=== PATIENT | male | born 1960 | race Caucasian/White ===

== ENCOUNTER 2018-08-20 11:57 | Inpatient (IN) | payer OTHER ==
[~2018-08-20] VITALS: Ht 175.3 cm; Wt 50.9 kg
[~2018-08-20 11:57] MED LIST: ACET325 PO; ACYC800 PO; ALBU.083IS IH; ALBU3IS INH; ALBU8HFA2 INH; ALBU90I INH; ALBU90OI INH; ALBU90OI6 INH; AMOCLA875 PO; ASPI325 PO; ASPI81CH PO; ASPI81EC; AZIT250 PO; CULTURELLE1 EACH PO; DOCU100 PO; DOXY100 PO; ERYT.5TO OD; FAMO20 PO; FLUSAL1005 IH; FLUSAL1005 INH; FLUSAL2505 INH; FLUSAL5005 INH; FLUT1DIS8 INH; GUAI600T33 PO; HYDACE5 PO; IPRAOI INH; LOPE2C PO; MONT10T PO; NICO14TP TOP; PENVK500 PO; PRED10 PO; PRED20 PO; TAMS.4ER PO; TAZICEF2 GM IV; TIOT18 INH; VANCO 1 GR1 GM/250 M IV
[2018-08-20 13:08] LABS: BASOPHILS ABSOLUTE AUTO 0.13 K/mm3 (0.00-0.23); BASOPHILS PERCENT AUTO 1 % (0-2); EOSINOPHILS ABSOLUTE AUTO 0.48 K/mm3 (0.00-0.68); EOSINOPHILS PERCENT AUTO 5 % (0-6); Hematocrit 46.1 % (37.0-53.0); Hemoglobin 14.8 g/dL (13.5-17.5); IMMATURE GRAN ABSOLUTE AUTO 0.03 K/mm3 (0.00-0.10); IMMATURE GRAN PERCENT AUTO 0 % (0-1); LYMPHOCYTES ABSOLUTE AUTO 1.43 K/mm3 (0.84-5.20); LYMPHOCYTES PERCENT AUTO 14 % (21-46); MONOCYTES ABSOLUTE AUTO 0.93 K/mm3 (0.16-1.47); MONOCYTES PERCENT AUTO 9 % (4-13); Mean Corpuscular HGB Conc 32.1 g/dL (31.5-36.5); Mean Corpuscular Volume 93 fL (80-100); NEUTROPHILS ABSOLUTE AUTO 7.56 K/mm3 (1.96-9.15); NEUTROPHILS PERCENT AUTO 72 % (41-73); Platelet Count 367 K/mm3 (150-400); RDW Coefficient Variation 13.8 % (11.7-14.2); RDW Standard Deviation 47.9 fL (35.1-46.3); Red Blood Cell Count 4.94 M/mm3 (4.30-5.90); White Blood Cell Count 10.56 K/mm3 (4.00-11.30)
[2018-08-20 13:30] LABS: Alanine Aminotransfer (ALT/SGP 30 U/L (12-78); Albumin, Blood 3.7 g/dL (3.4-5.0); Albumin/Globulin Ratio 1.1 (0.8-1.8); Alk Phos 65 U/L (50-136); Anion Gap 7 mmol/L (6-16); Aspartate Aminotrans (AST/SGOT 30 U/L (12-37); Bilirubin, Total 0.3 mg/dL (0.1-1.0); Blood Urea Nitrogen 13 mg/dL (8-24); Bun/Creatinine Ratio 13.6 (12.0-20.0); CO2, Blood 28 mmol/L (21-32); Calcium, Blood 9.4 mg/dL (8.5-10.1); Chloride, Blood 102 mmol/L (98-108); Creatinine, Blood 0.96 mg/dL (0.60-1.20); Globulin, Blood 3.3 g/dL (2.2-4.0); Glomerular Filtration Rate >60 (60-); Glucose, Blood 90 mg/dL (70-99); Potassium, Blood 4.7 mmol/L (3.5-5.5); Sodium, Blood 137 mmol/L (136-145)
[2018-08-20] MEDS ORDERED: BUDE6HFA INH (15:24)
[2018-08-20] MEDS ORDERED: TAMS.4ER PO (15:24)
[2018-08-20] MEDS ORDERED: MONT10T PO (15:25)
[2018-08-20] MEDS ORDERED: ALBU90OI6 INH ×2 (15:25)
[2018-08-20] MEDS ORDERED: ALBU2.5V5 NEB (16:31)
[2018-08-20 17:25] LABS: PCO2 Arterial 61.5 mmHg (35-45); PO2 Arterial 69.9 mmHg (80-100); pH Blood Arterial 7.33 (7.35-7.45)
[2018-08-21 00:38] LABS: Adenovirus Not Detected (NOT DETECT); Bordetella pertussis Not Detected (NOT DETECT); Chlamydophila pneumoniae Not Detected (NOT DETECT); Coronavirus 229E Not Detected (NOT DETECT); Coronavirus HKU1 Not Detected (NOT DETECT); Coronavirus NL63 Not Detected (NOT DETECT); Coronavirus OC43 Not Detected (NOT DETECT); Human Metapneumovirus Not Detected (NOT DETECT); Human Rhinovirus/Enterovirus Not Detected (NOT DETECT); Influenza A Not Detected (NOT DETECT); Influenza A/2009-H1 Not Detected (NOT DETECT); Influenza A/H1 Not Detected (NOT DETECT); Influenza A/H3 Not Detected (NOT DETECT); Influenza B Not Detected (NOT DETECT); Mycoplasma pneumoniae Not Detected (NOT DETECT); Parainfluenza Virus 1 Not Detected (NOT DETECT); Parainfluenza Virus 2 Not Detected (NOT DETECT); Parainfluenza Virus 3 Not Detected (NOT DETECT); Parainfluenza Virus 4 Not Detected (NOT DETECT); Respiratory Syncytial Virus Not Detected (NOT DETECT)
--- NOTE | 2018-08-21 06:03 | NUR ---
END OF SHIFT SUMMARY ASSUMED CARE OF PT FROM ED NURSE REJI. PT TO ROOM VIA STRETCHER, AMBULATES TO BED EASILY WITH NO ASSIST. PT ON 2L NC, SATS >92%. ALERT AND SPEAKING APPROPRIATELY WITH STAFF. BIPAP AT BEDSIDE. PT HAS USED INTERMITTENTLY, DOES NOT TOLERATE IT WELL AND NEEDS CONSTANT BREAKS FROM IT. PT MADE DNR PER REQUEST / DR ORDER. PALLIATIVE CARE CONSULT CALLED IN. PT HAD INSTANCE OF ANXIETY AND WAS MEDICATED PER EMAR BY NITZA HOLLIS. PT HAS BEEN RESTING OFF AND ON SINCE ADMISSION. PT VERY COOPERATIVE WITH STAFF. HAS COMPLAINED OF SOME CRAMPING IN FEET, STATES IS NORMAL OCCURENCE FOR HIM. WILL CONTINUE TO MONIOTOR PT UNTIL SHIFT CHANGE. CALL LIOGHT WITHIN REACH OF PT.
[2018-08-21 06:05] LABS: BASOPHILS ABSOLUTE AUTO 0.03 K/mm3 (0.00-0.23); BASOPHILS PERCENT AUTO 0 % (0-2); EOSINOPHILS PERCENT AUTO 0 % (0-6); Hematocrit 42.1 % (37.0-53.0); Hemoglobin 13.8 g/dL (13.5-17.5); IMMATURE GRAN ABSOLUTE AUTO 0.03 K/mm3 (0.00-0.10); IMMATURE GRAN PERCENT AUTO 0 % (0-1); LYMPHOCYTES ABSOLUTE AUTO 0.85 K/mm3 (0.84-5.20); LYMPHOCYTES PERCENT AUTO 10 % (21-46); MONOCYTES ABSOLUTE AUTO 0.14 K/mm3 (0.16-1.47); MONOCYTES PERCENT AUTO 2 % (4-13); Mean Corpuscular HGB 30.1 pg (26.0-34.0); Mean Corpuscular HGB Conc 32.8 g/dL (31.5-36.5); Mean Corpuscular Volume 92 fL (80-100); Mean Platelet Volume 9.5 fL (9.1-12.4); NEUTROPHILS PERCENT AUTO 88 % (41-73); Platelet Count 387 K/mm3 (150-400); RDW Coefficient Variation 13.9 % (11.7-14.2); RDW Standard Deviation 47.3 fL (35.1-46.3); Red Blood Cell Count 4.58 M/mm3 (4.30-5.90); White Blood Cell Count 8.75 K/mm3 (4.00-11.30)
[2018-08-21 06:20] LABS: Magnesium, Blood 2.3 mg/dL (1.6-2.4)
[2018-08-21 06:21] LABS: Anion Gap 5 mmol/L (6-16); Blood Urea Nitrogen 24 mg/dL (8-24); Bun/Creatinine Ratio 25.5 (12.0-20.0); CO2, Blood 32 mmol/L (21-32); Calcium, Blood 9.3 mg/dL (8.5-10.1); Chloride, Blood 100 mmol/L (98-108); Creatinine, Blood 0.94 mg/dL (0.60-1.20); Glomerular Filtration Rate >60 (60-); Glucose, Blood 128 mg/dL (70-99); Potassium, Blood 4.8 mmol/L (3.5-5.5); Sodium, Blood 137 mmol/L (136-145)
--- NOTE | 2018-08-21 09:35 | NUR ---
RECEIVED REPORT AND ASSUMED CARE OF PATIENT. HE IS VERY PLEASANT GENTLEMEN AND IS SITTING UP IN BED. PT IS HAVING LABORED BREATHING, AND HAS DYSPNEA WITH EXERTION, EVEN SPEAKING. CURRENTLY ON 2 LPM NC AND O2 SAT AT 94%. WILL CONTINUE TO ASSESS AND FOLLOW ORDERS. BED LOW AND LOCKED, HOB ELEVATED, CALL LIGHT WITHIN EASY REACH.
--- NOTE | 2018-08-21 11:09 | NUR ---
Spiritual care visit conducted. Patient is lying in bed and alert. Patient is kind and openly shares about how aware he is of the reality of his medical condition and how appreciative he is of his family, friends and ricky that give him meaning in the days he has left. I listened empathically, normalized his experience, explored his belief system, provided emotional support and prayer. Patient responded well and stated after the prayer and blessing that he already has all those blessings. Patient thanked me for the visit and said this group underwriter is welcome to come back anytime I would like.
--- NOTE | 2018-08-21 19:33 | NUR ---
PT HAD A GOOD DAY, HE HAS STAYED ON 2LPM VIA NC THROUGHOUT THE SHIFT, AFFECT IS VERY PLEASANT AND PT STATES THAT HE FEELS LIKE HE IS STARTING TO GET A LITTLE BETTER, BUT DOES HAVE EXPIRATORY WHEEZES THROUGHOUT AND HAS DYSPNEA WITH EXERTION, EVEN SPEAKING WILL BRING ON SOB. DR. SCHWARTZ IN TO SEE PATIENT AND SPENT TIME ASSESSING PT AND PT REPORTS, "I REALLY LIKE HIM, HE WAS VERY HELPFUL." PT ALSO STATES THAT "I REALLY WANT TO TRY THAT REHAB THING AGAIN." WILL PASS ON INFORMATION TO NOC RN.
--- NOTE | 2018-08-22 06:17 | NUR ---
SHIFT SUMMARY: PATIENT COMPLIANT WITH BIPAP MAJORITY OF SHIFT, INTERMITTENT BREAKS WITH NC, SOB WITH AVTIVITY. VSS, 1 BM THIS SHIFT, NO OTHER ISSUES NOTED, CALL LIGHT WITHIN REACH, BED LOW AND LOCKED.
--- NOTE | 2018-08-22 17:27 | NUR ---
PATIENT A/OX4, UP INDEPENDENTLY IN ROOM. VSS THIS SHIFT. NSR ON TELE, PULSE IN THE 90'S. LUNGS DIMINSHED THROUGHOUT. 2LO2 TO MAINTAIN SATS, BIPAP AT NOC AND PRN. 20G IV TO R AC WNL AND SL BETWEEN ABX. DENIES ANY PAIN. NO ACUTE CHANGES THIS SHIFT. PATIENT CALM AND COOPERATIVE WITH CARE AND CALLS APPROPRIATELY FOR ASSISTANCE.
--- NOTE | 2018-08-23 02:47 | NUR ---
SHIFT SUMMARY: PATIENT MAINTAINS SOB WITH ANY ACTIVITY, LABORS TO BREATH FOR AT LEAST 5-10 MINUTES AFTER A TRIP TO THE BATHROOM. PATIENT VERY COMPLIANT WITH HIS TREATMENT PLAN, VSS, CALL LIGHT WITHIN REACH, BED LOW AND LOCKED AND MONITORING PATIENT VERY CAREFULLY.
[2018-08-23 04:33] LABS: BASOPHILS ABSOLUTE AUTO 0.01 K/mm3 (0.00-0.23); BASOPHILS PERCENT AUTO 0 % (0-2); EOSINOPHILS PERCENT AUTO 0 % (0-6); Hematocrit 41.1 % (37.0-53.0); Hemoglobin 13.4 g/dL (13.5-17.5); IMMATURE GRAN ABSOLUTE AUTO 0.06 K/mm3 (0.00-0.10); IMMATURE GRAN PERCENT AUTO 0 % (0-1); LYMPHOCYTES ABSOLUTE AUTO 0.64 K/mm3 (0.84-5.20); LYMPHOCYTES PERCENT AUTO 4 % (21-46); MONOCYTES ABSOLUTE AUTO 0.34 K/mm3 (0.16-1.47); MONOCYTES PERCENT AUTO 2 % (4-13); Mean Corpuscular HGB 29.6 pg (26.0-34.0); Mean Corpuscular HGB Conc 32.6 g/dL (31.5-36.5); Mean Corpuscular Volume 91 fL (80-100); Mean Platelet Volume 9.7 fL (9.1-12.4); NEUTROPHILS ABSOLUTE AUTO 13.34 K/mm3 (1.96-9.15); NEUTROPHILS PERCENT AUTO 93 % (41-73); Platelet Count 369 K/mm3 (150-400); RDW Coefficient Variation 14.5 % (11.7-14.2); RDW Standard Deviation 48.6 fL (35.1-46.3); Red Blood Cell Count 4.52 M/mm3 (4.30-5.90); White Blood Cell Count 14.39 K/mm3 (4.00-11.30)
[2018-08-23 04:57] LABS: Anion Gap 5 mmol/L (6-16); Blood Urea Nitrogen 23 mg/dL (8-24); Bun/Creatinine Ratio 23.4 (12.0-20.0); CO2, Blood 32 mmol/L (21-32); Calcium, Blood 9.2 mg/dL (8.5-10.1); Chloride, Blood 102 mmol/L (98-108); Creatinine, Blood 0.98 mg/dL (0.60-1.20); Glomerular Filtration Rate >60 (60-); Glucose, Blood 120 mg/dL (70-99); Potassium, Blood 4.6 mmol/L (3.5-5.5); Sodium, Blood 139 mmol/L (136-145)
--- NOTE | 2018-08-23 08:00 | NUR ---
pt sitting up in chair doing ok, he is recieving a breathing tx at this time, a/ox3, pleasant and cooperative with care, follows commands well, denies pain at this time, lungs are very dim t/o, resp even and mildly labored at rest, denies productive cough, hrr, tele in place running sr per monitor, see strip, no edema noted, cap refill <3sec, vs stable, afebrile, no iv site at this time, btx4, abd flat soft nontender, voids without diff, skin c/w/d, maew, nicki, call light in reach.
--- NOTE | 2018-08-23 12:23 | NUR ---
PT WAS ON BIPAP WHEN ENTERED ROOM, STATES HE HAVING A HARD TIME BREATHING, BUT WANTS TO TAKE IT OFF AND EAT LUNCH, PLACED HIM ON N/C, PLACED NEW 2OG PIV TO ZAN X1 ATTEMPT WITH GOOD BLOOD RETURN, FLUSHES WELL. PT TOLERATED IT WELL. CALL LIGHT IN REACH.
--- NOTE | 2018-08-23 18:50 | NUR ---
pt sitting up to eat dinner, family in room. has a hard time breathing with any activity. no acute changes this shift. call light in reach.
--- NOTE | 2018-08-24 05:07 | NUR ---
SHIFT SUMMARY: PATIENT SLEPT WELL AFTER ATIVAN, STILL VERY SOB WITH ANY ACTIVIT. ALL OTHER VSS, CALL LIGHT WITHIN REACH, BED LOW AND LOCKED.
[2018-08-24] MEDS ORDERED: ACET325 PO (10:20)
[2018-08-24] MEDS ORDERED: FAMO20 PO (10:21)
[2018-08-24] MEDS ORDERED: GUAI600T33 PO (10:23)
[2018-08-24] MEDS ORDERED: LORA.5 PO (10:24)
[2018-08-24] MEDS ORDERED: PRED10 PO (10:27)
[2018-08-24] MEDS ORDERED: AZIT500 PO (10:28)
[2018-08-24] MEDS ORDERED: ONDA4ODT MM (10:28)
--- NOTE | 2018-08-24 12:48 | NUR ---
pt doing well, sitting on the side of the bed eating lunch. will be going home today, after trillagy is delivered, charge nurse working on discharge orders. vs stable. call light in reach.
--- NOTE | 2018-08-24 18:15 | NUR ---
pt has been discharged to home, went over discharge instructions with him, he has a hard copy for ativan that was given to him. his bipap was approved and will be delivered to his home. iv removed intact. left via wheelchair with all his belongings.
== END 2018-08-24 18:14 | disposition home or self-care (01) | DRG 189 ==
LOC: ER 11:57 → PCU 17:08
PROVIDERS: Family Medicine; Nurse Practitioner Acute Care; Physician Assistant; ADMIT Hospitalist
DX: J96.21 Acute and chronic respiratory failure with hypoxia (principal); R64 Cachexia; Z68.1 Body mass index [BMI] 19.9 or less, adult; J43.9 Emphysema, unspecified; J96.22 Acute and chronic respiratory failure with hypercapnia; Z99.81 Dependence on supplemental oxygen; G47.00 Insomnia, unspecified; N40.0 Benign prostatic hyperplasia without lower urinary tract symptoms; Z87.891 Personal history of nicotine dependence; Z66 Do not resuscitate; R73.9 Hyperglycemia, unspecified; T38.0X5A Adverse effect of glucocorticoids and synthetic analogues, initial encounter; Y92.239 Unspecified place in hospital as the place of occurrence of the external cause
CPT/HCPCS: 36415; 36600; 71046; 80048; 80053; 82803; 83735; 84145; 85025; 87486; 87581; 87633; 87798; 93005; 93010; 94640; 94644; 94660; 94664; 94667; 94760; 94762; 96365; 96366; 96368; 96375; 98960; 99285-25; 99407; J0456; J1650; J2930; J3475; J7050

== ENCOUNTER 2018-09-18 16:14 | Inpatient (IN) | payer OTHER ==
[~2018-09-18] VITALS: Ht 175.3 cm; Wt 52.7 kg
[~2018-09-18 16:14] MED LIST changes: +ALBU2.5V5 NEB; +AZIT500 PO; +BUDE6HFA INH; +LORA.5 PO; +ONDA4ODT MM
[2018-09-18 18:53] LABS: Alanine Aminotransfer (ALT/SGP 33 U/L (12-78); Albumin, Blood 3.1 g/dL (3.4-5.0); Albumin/Globulin Ratio 0.9 (0.8-1.8); Alk Phos 61 U/L (50-136); Anion Gap 3 mmol/L (6-16); Aspartate Aminotrans (AST/SGOT 20 U/L (12-37); Bilirubin, Total 0.5 mg/dL (0.1-1.0); Blood Urea Nitrogen 13 mg/dL (8-24); Bun/Creatinine Ratio 16.1 (12.0-20.0); CO2, Blood 33 mmol/L (21-32); Calcium, Blood 9.1 mg/dL (8.5-10.1); Chloride, Blood 104 mmol/L (98-108); Creatinine, Blood 0.81 mg/dL (0.60-1.20); Globulin, Blood 3.4 g/dL (2.2-4.0); Glomerular Filtration Rate >60 (60-); Glucose, Blood 74 mg/dL (70-99); Potassium, Blood 4.8 mmol/L (3.5-5.5); Sodium, Blood 140 mmol/L (136-145); Total Protein, Blood 6.5 g/dL (6.4-8.2)
[2018-09-18 19:50] LABS: Source, Urine Clean Catch
[2018-09-18 19:54] LABS: Bilirubin, Urine Neg (Neg); Blood, Urine Neg (Neg); Glucose Qualitative, Urine Neg (Neg); Ketones, Urine 2+ (Neg); Leukocyte Esterase, Urine Neg (Neg); Nitrite, Urine Neg (Neg); Protein, Urine Neg (Neg); Urobilinogen, Urine NORM (Normal)
[2018-09-18 20:10] LABS: Appearance, Urine Clear (Clear); Color, Urine Yellow (P-Yellow)
[2018-09-19 02:25] LABS: Adenovirus Not Detected (NOT DETECT); Bordetella pertussis Not Detected (NOT DETECT); Chlamydophila pneumoniae Not Detected (NOT DETECT); Coronavirus 229E Not Detected (NOT DETECT); Coronavirus HKU1 Not Detected (NOT DETECT); Coronavirus NL63 Not Detected (NOT DETECT); Coronavirus OC43 Not Detected (NOT DETECT); Human Metapneumovirus Not Detected (NOT DETECT); Human Rhinovirus/Enterovirus Not Detected (NOT DETECT); Influenza A Not Detected (NOT DETECT); Influenza A/2009-H1 Not Detected (NOT DETECT); Influenza A/H1 Not Detected (NOT DETECT); Influenza A/H3 Not Detected (NOT DETECT); Influenza B Not Detected (NOT DETECT); Mycoplasma pneumoniae Not Detected (NOT DETECT); Parainfluenza Virus 1 Not Detected (NOT DETECT); Parainfluenza Virus 2 Not Detected (NOT DETECT); Parainfluenza Virus 3 Not Detected (NOT DETECT); Parainfluenza Virus 4 Not Detected (NOT DETECT); Respiratory Syncytial Virus Not Detected (NOT DETECT)
[2018-09-19 04:36] LABS: Hematocrit 37.4 % (37.0-53.0); Hemoglobin 12.1 g/dL (13.5-17.5); Mean Corpuscular HGB Conc 32.4 g/dL (31.5-36.5); Mean Corpuscular Volume 93 fL (80-100); Mean Platelet Volume 8.8 fL (9.1-12.4); Platelet Count 334 K/mm3 (150-400); RDW Coefficient Variation 14.5 % (11.7-14.2); RDW Standard Deviation 49.7 fL (35.1-46.3); Red Blood Cell Count 4.03 M/mm3 (4.30-5.90); White Blood Cell Count 4.82 K/mm3 (4.00-11.30)
[2018-09-19 04:54] LABS: Alanine Aminotransfer (ALT/SGP 29 U/L (12-78); Albumin, Blood 2.9 g/dL (3.4-5.0); Albumin/Globulin Ratio 0.9 (0.8-1.8); Alk Phos 54 U/L (50-136); Anion Gap 7 mmol/L (6-16); Aspartate Aminotrans (AST/SGOT 16 U/L (12-37); Bilirubin, Total 0.2 mg/dL (0.1-1.0); Blood Urea Nitrogen 19 mg/dL (8-24); Bun/Creatinine Ratio 23.2 (12.0-20.0); CO2, Blood 27 mmol/L (21-32); Calcium, Blood 8.3 mg/dL (8.5-10.1); Chloride, Blood 108 mmol/L (98-108); Creatinine, Blood 0.82 mg/dL (0.60-1.20); Globulin, Blood 3.1 g/dL (2.2-4.0); Glomerular Filtration Rate >60 (60-); Glucose, Blood 154 mg/dL (70-99); Potassium, Blood 4.6 mmol/L (3.5-5.5); Sodium, Blood 142 mmol/L (136-145)
--- NOTE | 2018-09-19 05:14 | NUR ---
09/19/18 0500 AWAKENED FOR VITALS AND LABWORK. HE WS SLEEPING WELL PRIOR. VITALS BETTER THIS AM. HAD BIPAP ON LAST NIGHT AFTER RESP. TREATMENT WAS GIVEN BY RT. HEART MONITOR PER TELE. TECH IS SR AT 74. BREATHING EASIER THIS AM.
[2018-09-19 13:05] LABS: Base Excess Venous 4.4 mmol/L; Bicarbonate Venous 27.8 mmol/L (24.0-30.0); PCO2 Venous 43.8 mmHg (38-42); PO2 Venous 94.3 mmHg (38-42); pH Blood Venous 7.43 (7.34-7.37)
--- NOTE | 2018-09-19 13:57 | NUR ---
MUSCLE SPASMS. DR. ARMIJO CALLED & NOTIFED THAT PT IS HAVING MUSCLE SPASMS. DR. ARMIJO ORDERED FLEXERIL BID PRN. WILL CONTINUE TO MONITOR.
--- NOTE | 2018-09-19 16:40 | NUR ---
SHIFT SUMMARY PT COMPLAINING LESS ABOUT LEG CRAMPING THIS AFTERNOON. PT DENIES SOB. & IS SATING IN THE 90S ON 2L O2. NO OTHER CHANGES IN ASSESSMENT AT THIS TIME. VSS. WILL CONTINUE TO MONITOR UNTIL TURNOVER IS COMPLETE.
--- NOTE | 2018-09-20 03:50 | NUR ---
SHIFT SUMMARY: PT IS ALERT AND ORIENTED. PT IS CALM AND COOPERATIVE WITH CARE. PT CALLS APPROPRIATELY. PT REPORTS ACID REFLUX, CALLED AUTOMATED MANUFACTURING INSTRUCTOR PUSHPINDER AND RECEIVED AN ORDER FOR PRN TUMS. PT WORE BIPAP OVERNIGHT. PT REPORTS LEG CRAMPS, GAVE PRN FLEXERIL. PT USING THE URINAL IN BED INDEPENDENTLY. PT DENIES NAUSEA, VOMITING, AND SOB. O2 3 L KEEPING SATS > 90%. NO ACUTE CHANGES OR COMPLICATIONS THIS SHIFT. BED IN LOW POSITION, CALL LIGHT WITHIN REACH. WILL CONTINUE TO MONITOR.
--- NOTE | 2018-09-20 16:10 | NUR ---
SUMMARY PT IS A/O X4, COOPERATIVE AFFECT. HE STATE SOB THAT INCREASES WITH EXERTION HOWEVER STATE THIS IS HIS BASELINE. HE WAS ON 2L O2 @ ONSET OF SHIFT, BIOX 94% DR ARMIJO IN TO SEE HIM, TAKE O2 OFF, PT 92-94% ON RA. PT STATE HX CO2 RETAINER THAT BIOX SHOULDN'T BE >94%, STATE USES O2 PRN @ HOME. HAVE BEEN UNABLE TO COLLECT GI PANEL, PT STATE NO DIARRHEA, RESOLVED. HE STATE CONTINUING WEAKNESS. DR ARMIJO ORDER PT/OT EVAL, STATE PT MAY REQUIRE SNF WHEN APPROP FOR D/C. FAMILY MEMBERS IN TO VISIT THIS AFTERNOON, STATE CONCERNS IF PT IS D/C TO HOME, MESSAGE TO [employer]/ADMIN ASSISTANT TO COMMUNICATE WITH THEM. VSS.
--- NOTE | 2018-09-21 06:18 | NUR ---
SHIFT SUMMARY; PT AOX3 COOPERATIVE AND PLEASANT. VS HAVE REMAINED STABLE T/O THE NIGHT. DENIED ANY PAIN OR DISCOMFORT. IV SITE DC'S FROM L FA AND WAS 22 GAUGE WAS STARTED IN THE LEFT WRIST, FLUSHED WELL. LUNG SOUNDS ARE DIMINISHED WITH EXPIRTORY WHEEZES, HE DOES GET SOB ON EXERTION, COUGH WITH NO PRODUCTION AT THIS TIME. SATS REMAINED WNL ON RA. SKIN PWD. HR PER TELE IS SR. DENIES ANY CHEST PAIN OR DISCOMFORT. HE WORE HIS CPAP FOR LONG HE COULD LAST NIGHT WHICH WAS SEVERAL HOURS BEFORE HE HAD TO REMOVE IT. REPORTS THEY HAVE THE MOISTURE TO HIGH FOR HIM. PATIENT WAS STILL CONSTIPATED AT BEGINNING OF SHIFT BUT TOWARDS THE END HE HAD A GOOD BM AND STOOL SAMPLE WAS SENT. HE SLEPT MOST OF SHIFT AND HAD NO FURTHER CHANGES. WILL REPORT TO ONCOMING SHIFT.
[2018-09-21 10:00] LABS: Adenovirus F 40/41 Not Detected (NOT DETECT); Astrovirus Not Detected (NOT DETECT); Campylobacter Sp Not Detected (NOT DETECT); Cryptosporidium Not Detected (NOT DETECT); Cyclospora Cayetanensis Not Detected (NOT DETECT); E. Coli O157 Not Detected (NOT DETECT); Entamoeba Histolytica Not Detected (NOT DETECT); Enteroaggregative E. coli-EAEC Not Detected (NOT DETECT); Enteropathogenic E. coli-EPEC Not Detected (NOT DETECT); Enterotoxigenic E. coli-ETEC Detected (NOT DETECT); Giardia Lamblia Not Detected (NOT DETECT); Norovirus GI/GII Not Detected (NOT DETECT); Plesiomonas Shigelloides Not Detected (NOT DETECT); Rotavirus A Not Detected (NOT DETECT); Salmonella Sp Detected (NOT DETECT); Sapovirus Not Detected (NOT DETECT); Shiga Toxin-prod E. coli-STEC Not Detected (NOT DETECT); Shigella/Enteroin E. coli-EIEC Not Detected (NOT DETECT); Vibrio Cholerae Not Detected (NOT DETECT); Vibrio Sp Not Detected (NOT DETECT); Yersinia Enterocolitica Not Detected (NOT DETECT)
[2018-09-21] MEDS ORDERED: TUMS500 MG (11:33)
[2018-09-21] MEDS ORDERED: CYCL10 (11:35)
[2018-09-21] MEDS ORDERED: ROBITUSSIN COU237 ML PO (11:39)
[2018-09-21] MEDS ORDERED: ALBU3IS (11:47)
[2018-09-21] MEDS ORDERED: PANT20 PO (11:49)
[2018-09-21] MEDS ORDERED: PREDNISONE PO (11:56)
[2018-09-21] MEDS ORDERED: LEVFLO500 PO (11:57)
--- NOTE | 2018-09-21 15:55 | NUR ---
SUMMARY/DISCHARGE PT STATE CONTINUING SOB HOWEVER BREATHING @ BASELINE THIS AM, 93-94% RA. STATE CONSTIPATION, PRN MOM GIVEN WITH + RESULT SOFT STOOL. DR ARMIJO IN TO SEE HIM, REVIEW RESULTS OF TESTS/GI PANEL. STATE OK FOR TRANSFER TO SNF. TIEN SPRINGER MAKE ARRANGEMENT FOR TRANSFER TO [facility]. REPORT CALLED TO THEIR RECEIVING RN. PT ASSISTED TO GATHER BELONGINGS, FAMILY NOTIFIED. [employer] [facility] TRANSPORT ARRANGED FOR 1630 TODAY. PT IS PLEASANT/APPRECIATIVE, STATE FEELS REDY FOR TRANSFER.
== END 2018-09-21 16:05 | DRG 191 ==
LOC: ER 16:14 → MEDS 21:02 → ENPENDDIS 09-21 11:32 → MEDS 09-21 16:05
PROVIDERS: Emergency Medicine; Internal Medicine; ADMIT Internal Medicine
DX: J44.1 Chronic obstructive pulmonary disease with (acute) exacerbation (principal); J96.11 Chronic respiratory failure with hypoxia; J96.12 Chronic respiratory failure with hypercapnia; Z68.1 Body mass index [BMI] 19.9 or less, adult; E86.0 Dehydration; Z87.891 Personal history of nicotine dependence; G47.00 Insomnia, unspecified; K21.9 Gastro-esophageal reflux disease without esophagitis; K52.9 Noninfective gastroenteritis and colitis, unspecified; N40.0 Benign prostatic hyperplasia without lower urinary tract symptoms; Z66 Do not resuscitate; Z99.81 Dependence on supplemental oxygen; Z99.3 Dependence on wheelchair; B96.20 Unspecified Escherichia coli [E. coli] as the cause of diseases classified elsewhere
CPT/HCPCS: 36415; 71046; 80053; 81003; 82803; 83605; 83880; 85027; 87486; 87507; 87581; 87633; 87798; 93005; 93010; 94640; 94644; 94660; 94762; 96361; 96365; 96375; 97162; 97166; 97530; 97535; 99285-25; C9113; J0456; J1100; J1650; J2920; J2930; J7030; J7050

== ENCOUNTER 2018-10-17 12:15 | Emergency (ER) | payer OTHER ==
[~2018-10-17] VITALS: Ht 175.3 cm; Wt 52.6 kg
[~2018-10-17 12:15] MED LIST changes: +ALBU3IS; +CYCL10; +LEVFLO500 PO; +PANT20 PO; +PREDNISONE PO; +ROBITUSSIN COU237 ML PO; +TUMS500 MG
[2018-10-17 12:46] LABS: BASOPHILS ABSOLUTE AUTO 0.13 K/mm3 (0.00-0.23); BASOPHILS PERCENT AUTO 1 % (0-2); EOSINOPHILS ABSOLUTE AUTO 0.78 K/mm3 (0.00-0.68); EOSINOPHILS PERCENT AUTO 8 % (0-6); Hematocrit 42.6 % (37.0-53.0); Hemoglobin 13.9 g/dL (13.5-17.5); IMMATURE GRAN ABSOLUTE AUTO 0.03 K/mm3 (0.00-0.10); IMMATURE GRAN PERCENT AUTO 0 % (0-1); LYMPHOCYTES ABSOLUTE AUTO 2.03 K/mm3 (0.84-5.20); LYMPHOCYTES PERCENT AUTO 20 % (21-46); MONOCYTES ABSOLUTE AUTO 0.81 K/mm3 (0.16-1.47); MONOCYTES PERCENT AUTO 8 % (4-13); Mean Corpuscular HGB 30.3 pg (26.0-34.0); Mean Corpuscular HGB Conc 32.6 g/dL (31.5-36.5); Mean Corpuscular Volume 93 fL (80-100); Mean Platelet Volume 8.6 fL (9.1-12.4); NEUTROPHILS ABSOLUTE AUTO 6.45 K/mm3 (1.96-9.15); NEUTROPHILS PERCENT AUTO 63 % (41-73); Platelet Count 324 K/mm3 (150-400); RDW Coefficient Variation 13.9 % (11.7-14.2); RDW Standard Deviation 47.4 fL (35.1-46.3); Red Blood Cell Count 4.58 M/mm3 (4.30-5.90); White Blood Cell Count 10.23 K/mm3 (4.00-11.30)
[2018-10-17 13:04] LABS: Anion Gap 3 mmol/L (6-16); Blood Urea Nitrogen 7 mg/dL (8-24); Bun/Creatinine Ratio 7.9 (12.0-20.0); CO2, Blood 35 mmol/L (21-32); Calcium, Blood 9.2 mg/dL (8.5-10.1); Chloride, Blood 104 mmol/L (98-108); Creatinine, Blood 0.89 mg/dL (0.60-1.20); Glomerular Filtration Rate >60 (60-); Glucose, Blood 100 mg/dL (70-99); Potassium, Blood 4.2 mmol/L (3.5-5.5); Sodium, Blood 142 mmol/L (136-145)
[2018-10-17] MEDS ORDERED: Prednisone20 MG PO (13:47)
== END 2018-10-17 13:56 | disposition home or self-care (01) ==
LOC: ER 12:15
PROVIDERS: Emergency Medicine
DX: J44.1 Chronic obstructive pulmonary disease with (acute) exacerbation (principal); Z87.891 Personal history of nicotine dependence; Z79.899 Other long term (current) drug therapy
CPT/HCPCS: 36415; 71046; 80048; 85025; 93005; 93010; 94640; 96374; 99285-25; J2930

== ENCOUNTER 2018-11-05 11:42 | Inpatient (IN) | payer OTHER ==
[~2018-11-05] VITALS: Ht 175.3 cm; Wt 53.3 kg
[~2018-11-05 11:42] MED LIST changes: +Prednisone20 MG PO
[2018-11-05 12:24] LABS: BASOPHILS ABSOLUTE AUTO 0.15 K/mm3 (0.00-0.23); BASOPHILS PERCENT AUTO 1 % (0-2); EOSINOPHILS ABSOLUTE AUTO 0.66 K/mm3 (0.00-0.68); EOSINOPHILS PERCENT AUTO 5 % (0-6); Hemoglobin 14.9 g/dL (13.5-17.5); IMMATURE GRAN ABSOLUTE AUTO 0.02 K/mm3 (0.00-0.10); IMMATURE GRAN PERCENT AUTO 0 % (0-1); LYMPHOCYTES PERCENT AUTO 13 % (21-46); MONOCYTES ABSOLUTE AUTO 0.93 K/mm3 (0.16-1.47); MONOCYTES PERCENT AUTO 7 % (4-13); Mean Corpuscular HGB 30.8 pg (26.0-34.0); Mean Corpuscular HGB Conc 32.4 g/dL (31.5-36.5); Mean Corpuscular Volume 95 fL (80-100); Mean Platelet Volume 8.8 fL (9.1-12.4); NEUTROPHILS ABSOLUTE AUTO 9.33 K/mm3 (1.96-9.15); NEUTROPHILS PERCENT AUTO 73 % (41-73); Platelet Count 533 K/mm3 (150-400); RDW Coefficient Variation 13.6 % (11.7-14.2); Red Blood Cell Count 4.83 M/mm3 (4.30-5.90); White Blood Cell Count 12.79 K/mm3 (4.00-11.30)
[2018-11-05 12:52] LABS: Alanine Aminotransfer (ALT/SGP 24 U/L (12-78); Albumin, Blood 3.6 g/dL (3.4-5.0); Albumin/Globulin Ratio 0.9 (0.8-1.8); Alk Phos 78 U/L (50-136); Anion Gap 7 mmol/L (6-16); Aspartate Aminotrans (AST/SGOT 18 U/L (12-37); Bilirubin, Total 0.4 mg/dL (0.1-1.0); Blood Urea Nitrogen 6 mg/dL (8-24); Bun/Creatinine Ratio 8.1 (12.0-20.0); CO2, Blood 32 mmol/L (21-32); Calcium, Blood 9.8 mg/dL (8.5-10.1); Chloride, Blood 99 mmol/L (98-108); Creatinine, Blood 0.74 mg/dL (0.60-1.20); Globulin, Blood 4.1 g/dL (2.2-4.0); Glomerular Filtration Rate >60 (60-); Glucose, Blood 95 mg/dL (70-99); Sodium, Blood 138 mmol/L (136-145); Total Protein, Blood 7.7 g/dL (6.4-8.2); Troponin I <0.015 ng/mL (0.000-0.040)
[2018-11-05 16:50] LABS: PCO2 Arterial 63.6 mmHg (35-45); PO2 Arterial 62.1 mmHg (80-100); pH Blood Arterial 7.38 (7.35-7.45)
--- NOTE | 2018-11-05 18:56 | NUR ---
Brief and difficult conversation with patient due to his dyspnea and stress. Pt very distraught by not being able to make it to appointment tomorrow. He is signing up for disability and getting a plan for assisted living. States he did fairly well in rehab but few days after being home started declining due to the heat and dust. States he has had trouble eating due to dyspnea but mostly due to dryness. He coughs to much. Dneis pain want to avoid narcotics. reviewed non narcotic medications. He would consider rehab again. Minimized conversation dur to syapne and stress. Got him to eat some pudding and juice. May benefit from modified diet for tolerance. will update care managers on pt needs.
--- NOTE | 2018-11-05 19:06 | NUR ---
Pt high risk for readmission will ask for high risk program. See how he responds to treatment and get POLST and pronostication and life long plan up to and including hospice and/or end of life plan for him. As he expresses lack of support and fear of suffering needs colaborative plan.
[2018-11-05 22:13] LABS: Source, Urine Voided
[2018-11-05 22:17] LABS: Appearance, Urine Clear (Clear); Bilirubin, Urine Neg (Neg); Blood, Urine Neg (Neg); Color, Urine Yellow (P-Yellow); Glucose Qualitative, Urine 1+ (Neg); Ketones, Urine 1+ (Neg); Leukocyte Esterase, Urine Neg (Neg); Nitrite, Urine Neg (Neg); Protein, Urine Neg (Neg); Urobilinogen, Urine NORM (Normal)
--- NOTE | 2018-11-05 23:00 | NUR ---
ADMIT PT ARRIVES TO PCU 6 FROM ER AT APPROXIMATELY 2140. PT IS AOX4. AND AMBULATES WITH STANDBY ASSIST TO HOSPITAL BED. PT IS STEADY ON HIS FEET BUT BECOMES VERY DYSPNEIC ON EXERTION. BLOOD PRESSURE ELEVATED POST AMBULATION, BUT ALL OTHER VSS. O2 SATS OF 95% ON 2.5L VIA NASAL CANNULA. PT REPORTS THAT HIS BASELINE O2 IS 2L. LUNG SOUNDS ARE DIM THROUGHOUT WITH EXPIRATORY WHEEZES IN THE RUL. PT REPORTING SOME R FLANK PAIN THAT RADIATES AROUND TO RLQ THAT HAS BEEN PRESENT FOR "SEVERAL DAYS". ORIENTED TO ROOM AND CALL LIGHT SYSTEM, ENCOURAGED TO CALL FOR ASSISTANCE WITH CARE AND AMBULATION. WILL CONTINUE WITH ASSESSMENT AND ADMISSION. BED IN LOW POSITION, CALL LIGHT IN REACH.
--- NOTE | 2018-11-06 01:28 | NUR ---
PROVIDER CONTACTED PT WITH CONTINUED RLQ PAIN THAT IS RADIATING TO HIS FRONT AND UP UNDER RIBS, CAUSING PAIN WITH INHALATION. PT ALSO REPORTING "REFLUX PAIN" FOR WHICH HE NORMALLY TAKES PRILOSEC. PT MEDICATED WITH TYLENOL, ZOFRAN, AND PROVIDED WITH HEATING PAD WITH VERY LITTLE IMPROVEMENT IN PAIN REPORTED. PROVIDER CONTACTED AND UPDATED ON PATIENT CONDITION. ORDERS RECEIVED FOR GI COCKTAIL AND ONE TIME DOSE OF FENTANYL. PROVIDER ALSO STATES THAT HE WILL COME TO FLOOR TO RE-ASSESS PATIENT SHORTLY.
[2018-11-06 04:04] LABS: BASOPHILS ABSOLUTE AUTO 0.03 K/mm3 (0.00-0.23); BASOPHILS PERCENT AUTO 1 % (0-2); EOSINOPHILS PERCENT AUTO 0 % (0-6); Hematocrit 40.2 % (37.0-53.0); Hemoglobin 13.3 g/dL (13.5-17.5); IMMATURE GRAN ABSOLUTE AUTO 0.01 K/mm3 (0.00-0.10); IMMATURE GRAN PERCENT AUTO 0 % (0-1); LYMPHOCYTES ABSOLUTE AUTO 0.62 K/mm3 (0.84-5.20); LYMPHOCYTES PERCENT AUTO 11 % (21-46); MONOCYTES ABSOLUTE AUTO 0.06 K/mm3 (0.16-1.47); MONOCYTES PERCENT AUTO 1 % (4-13); Mean Corpuscular HGB 30.9 pg (26.0-34.0); Mean Corpuscular HGB Conc 33.1 g/dL (31.5-36.5); Mean Corpuscular Volume 93 fL (80-100); Mean Platelet Volume 9.1 fL (9.1-12.4); NEUTROPHILS ABSOLUTE AUTO 4.95 K/mm3 (1.96-9.15); NEUTROPHILS PERCENT AUTO 87 % (41-73); Platelet Count 514 K/mm3 (150-400); RDW Coefficient Variation 13.3 % (11.7-14.2); RDW Standard Deviation 46.3 fL (35.1-46.3); Red Blood Cell Count 4.31 M/mm3 (4.30-5.90); White Blood Cell Count 5.67 K/mm3 (4.00-11.30)
[2018-11-06 04:22] LABS: Anion Gap 4 mmol/L (6-16); Blood Urea Nitrogen 9 mg/dL (8-24); Bun/Creatinine Ratio 12.7 (12.0-20.0); CO2, Blood 37 mmol/L (21-32); Calcium, Blood 9.1 mg/dL (8.5-10.1); Chloride, Blood 97 mmol/L (98-108); Creatinine, Blood 0.71 mg/dL (0.60-1.20); Glomerular Filtration Rate >60 (60-); Glucose, Blood 132 mg/dL (70-99); Potassium, Blood 4.6 mmol/L (3.5-5.5); Sodium, Blood 138 mmol/L (136-145)
--- NOTE | 2018-11-06 05:02 | NUR ---
SHIFT SUMMARY PT HAS REMAINED AOX4 THROUGHOUT THE SHIFT. VSS. PLEASANT AND COOPERATIVE WITH CARE. PT USES URINAL INDEPENDENTLY IN BED WITHOUT DIFFICULTY. O2 SATS HAVE REMAINED >90% ON 2.5L VIA NASAL CANNULA. MEDICATED FOR PAIN IN RLQ AND ACID REFLUX PAIN THAT DECREASED WITH ORDERED MEDICATIONS AND HEAT THERAPY. PT REPORTS FEELING MUCH BETTER THIS AM THAN LAST NIGHT UPON ARRIVAL. PT OCCASIONALLY DYSPNEIC AT REST, BUT UITILIZES PURSED LIP BREATHING AND RELAXATION TECHNIQUES INDEPENDENTLY WITH RELIEF. NO OTHER CHANGES NOTED FROM INITIAL ASSESSMENT. WILL CONTINUE TO MONITOR AND REPORT TO ONCOMING SHIFT RN. BED IN LOW POSITION, CALL LIGHT IN REACH.
--- NOTE | 2018-11-06 07:45 | NUR ---
PCU DAYSHIFT ASSUMED CARE OF PT APPROX. 0700. PT A&OX4. ASSESSMENT COMPLETED. VITAL SIGNS STABLE. PT CURRENLTY ON 2L OXYGEN VIA N.C. WITH OXYGEN SATS IN 90'S. PT REPROTS FEELING "SLIGHTLY" SHORT OF BREATH. PT AGREED TO HAVE BREATHING TREATMENTS THIS MORNING, AFTER RECIEIVNG EDUCATION FROM R.T. PT REPORTS RIGHT FLANK PAIN, DOES SLIGHTLY WORSEN WITH PALPITATION. PT REPORTS THIS PAIN HAS BEEN THERE CONTINUOUSLY SINCE ADMISSION. WILL NOTIFIY PHYSICIAN OF THIS. PT ABLE TO HAVE BREAKFAST AND TOLERATED WELL. DID NOT GET SHORT OF BREATH PREVIOUSLY HAD PER PT REPORT. BED IN LOW POSITION, CALL LIGHT IN REACH AND PT DENIES ANY NEEDS AT THIS TIME. WILL CONTINUE TO MONITOR.
--- NOTE | 2018-11-06 11:04 | NUR ---
Patient is pleasant and is reflective. Patient is well read and can speak intelligently about many topics. Patient struggled with air hunger through much of our conversation but it is mostly connected to doing more talking and less focused breathing. Patient said that the conversation is much more inspiring than watching television so he continued. Patient shared his thoughts about the beginning of life, the meaning of life, the after life and what Anish is about in purpose and design. I conducted a life review, explored patient's belief system, reinforced helpful attitudes and practices, provided companionship and provided prayer. patient responded well and showed signs of an elevated mood. I will continue to remain available to patient and family.
--- NOTE | 2018-11-06 12:06 | NUR ---
NOTE INFECTION CONTROLLED STATED PT NEEDED THROAT SWABBED TO RULED OUT FOR MRSA. WAS ABLE TO SWAB THROAT AND SEND SAMPLE OFF.
--- NOTE | 2018-11-06 13:06 | NUR ---
Echocardiogram completed.
--- NOTE | 2018-11-06 14:08 | NUR ---
Pt visit this afternoon. Pt reports a tolerable 2/10 pain in his lower right abdomen and bilateral lower back. He reports 5/7 dyspnea with accasional moderate anxiety. He reports difficulty with managing anxiety at times even with distraction and meditation. Pt reports taking Ativan in the past and was beneficial for managing his anxiety. Listened as Pt expresses concerns regarding plan for disability process and had an appointment scheduled for today. He reports concerns with his ability to care for him self and is hoping to be placed into higher level of care. Assessed Pt's level of understanding of disease process. Pt states "Eventually COPD is going to kill me". Educated Pt on disease process and encouraged Pt to have routine conversations with PCP and Engine Head Repairer in order to plan accordingly. Educated when disease process becomes end stage that he has end of life care options such as hospice. V/U made by Pt. At this point in visit Pt is experiencing significant dyspnea due to speaking and this RN ended visit. Suggested breathing treatment to help manage symptom and Pt is agreeable. Called and spoke with respiratory therapy regarding request for breathing treatment. Called and spoke with Dr Fritz regarding anxiety. Placed order for Ativan 0.5mg Q 8 hours PRN for anxiety per V/O from Dr Fritz. Called and spoke with director of managed care Anabel regarding Pt's concerns of process for disability appointment. Anabel reports she will contact behavioral health case manager in attempt to have appintment held here at the hospital. Palliative Care will remain available.
--- NOTE | 2018-11-06 19:35 | NUR ---
SHIFT SUMMARY PT PLEASANT, COOPERATIVE AND USES CALL LIGHT APPRORPIATELY. PT REMAINS A&OX4. VITAL SIGNS REMAIN STABLE. PT HAD FAMILY BRING IN HOME BIPAP MACHINE. R.T. GOT THIS SET UP IN ROOM AND PT WAS ABLE TO USE THIS FOR PART OF SHIFT. WHEN NOT USING THIS PT WAS ON 2L OXYGEN VIA N.C. PT HAD INCREASED SOB INTERMITETNLY PT UTILIZED PURSED LIP BREATHING NEEDED AND RELAXATION TECHNIQUES. PT REPROTS PAIN IN RIGHT FLANK SLIGHTLY BETTER FROM THIS MORNING. ALTHOUGH THIS WAS DISCUSSED WITH THE PHYSCIAN PER PT. PT CURRENTLY RESTING IN BED. NO S/SX OF ACUTE DISTRESS. BED IN LOW POSITION. CALL LIGHT IN REACH AND PT DENIES ANY NEEDS AT THIS TIME. WILL CONTINUE TO MONITOR UNTIL HANDOFF TO NIGHTSHIFT RN.
--- NOTE | 2018-11-07 06:19 | NUR ---
SHIFT SUMMARY PT HAS REMAINED AOX4 THROUGHOUT SHIF. VSS. PLEASANT AND COOPERATIVE WITH CARE. O2 SATS HAVE REMAINED >90% ON 2-3L VIA NASAL CANNULA. PT HAS RESTED THROUGHOUT MUCH OF THE NIGHT. UTILIZED HOME TRILOGY BIPAP FOR APPROXIMATELY TWO HOURS TOTAL THROUGHOUT THE NIGHT, BUT WAS HAVING DIFFICULTY WEARING IT STATING THAT IT WAS "DRYING HIM OUT". RT ATTEMPTED TO ADJUST BIPAP FOR COMFORT AND ABILITY TO TOLERATE WITHOUT MUCH SUCCESS. PT CONTINUES TO REPORT SOME MILD PAIN TO RLQ THAT HAS IMPROVED SIGNIFICANTLY FROM YESTERDAY. MEDICATED ONCE FOR ANXIETY THAT DECREASED WITH ORDERED MEDICATION. PT EXPRESSES CONCERNS ABOUT BEING DISCHARGED HOME TO CURRENT LIVING SITUATION INSTEAD OF PREFERRED ARRANGEMENT IN ASSISTED LIVING FACILTIY. CARE MANAGEMENT TEAM WORKING WITH PATIENT TO ASSIST WITH CONCERNS AND PLACEMENT NEEDS. THERAPEUTIC COMMUNICATION PROVIDED AND PT ENSURED THAT EFFORTS ARE BEING MADE TO ENSURE HIS WELL-BEING PRIOR TO AND AT DISCHARGE- PT APPEARS TO BE LESS ANXIOUS AFTER REASSURED. NO OTHER CHANGES NOTED FROM INITIAL ASSESSMENT. WILL CONTINUE TO MONITOR AND REPORT TO ONCOMING SHIFT RN. BED IN LOW POSITION, CALL LIGHT IN REACH.
--- NOTE | 2018-11-07 07:42 | NUR ---
PCU DAYSHFIT ASSUMED CARE OF APPROX. 0700. PT A&OX4. ASSESSMENT COMPLETED. VITAL SIGNS STABLE. PT CURRENTLY ON 3L OXYGEN VIA N.C. WITH OXYGEN SATS >96%. PT REPORTS BREATHING FEELS SLIGHTLY BETTER FROM YESTERDAY. PT REPROTS HE HAS MORE EASE OF BREATHING THIS MORNING COMPARED TO PREVIOUS DAYS. PT LUNG SOUNDS HAS MORE AIR MOVEMENT THAN YESTERDAYS SHIFT. PT REPROTS ABDOMINAL PAIN THAT WAS PREVIOUSLY THERE HAS "EASED UP" A GREAT AMOUNT. NO INCREASED DISCOMFORT WITH PALPITATION. PT REPROTS THAT HE HAD A SMALL BOWEL MOVEMENT LAST NIGHT AND THIS SEEMED TO HELP EASE THIS PAIN SOME. TRACE AMOUTN OF EDEMA NOTED IN BLE. BED IN LOW POSITION, CALL LIGHT IN REACH AND PT DENIES ANY NEEDS AT THIS TIME.
--- NOTE | 2018-11-07 19:44 | NUR ---
SHIFT SUMMARY PT PLEASANT, COOPERATIVE AND USES CALL LIGHT APPRORIATELY. PT REMAIN A&OX4. VITALS STABLE. AND ASSESSMENT FINDINS REMAIN UNCHANGED FROM START OF SHIFT. PT ALL DAY ON 2L OXYGEN VIA N.C. PT WAS ABLE TO WORK WITH PHYSICAL THERAPY TODAY AND TOLERATED WELL. PT ALSO SPENT TIME SITTING UP IN CHAIR THIS EVENING AND TOELRATED WELL. PT ABLE TO AMBUALTE TO BATHROOM NEEDED WITH USE OF FWW AND SBA AND TOLERATED WELL. OXYGEN SATS REMAINED >89% DURING THIS TIME. PT CURRENTLY IN BED. BED IN LOW POSITION, CALL LIGHT IN REACH AND PT DENIES ANY NEEDS. WILL CONTINUE TO MONITOR UNTIL HANDOFF TO NIGHTSHIFT RN.
[2018-11-08 03:55] LABS: BASOPHILS ABSOLUTE AUTO 0.01 K/mm3 (0.00-0.23); BASOPHILS PERCENT AUTO 0 % (0-2); EOSINOPHILS ABSOLUTE AUTO 0.01 K/mm3 (0.00-0.68); EOSINOPHILS PERCENT AUTO 0 % (0-6); Hematocrit 37.9 % (37.0-53.0); Hemoglobin 12.4 g/dL (13.5-17.5); IMMATURE GRAN ABSOLUTE AUTO 0.08 K/mm3 (0.00-0.10); IMMATURE GRAN PERCENT AUTO 1 % (0-1); LYMPHOCYTES ABSOLUTE AUTO 0.78 K/mm3 (0.84-5.20); LYMPHOCYTES PERCENT AUTO 5 % (21-46); MONOCYTES ABSOLUTE AUTO 0.34 K/mm3 (0.16-1.47); MONOCYTES PERCENT AUTO 2 % (4-13); Mean Corpuscular HGB Conc 32.7 g/dL (31.5-36.5); Mean Corpuscular Volume 92 fL (80-100); Mean Platelet Volume 9.1 fL (9.1-12.4); NEUTROPHILS ABSOLUTE AUTO 13.57 K/mm3 (1.96-9.15); NEUTROPHILS PERCENT AUTO 92 % (41-73); Platelet Count 467 K/mm3 (150-400); RDW Coefficient Variation 13.8 % (11.7-14.2); RDW Standard Deviation 46.6 fL (35.1-46.3); Red Blood Cell Count 4.13 M/mm3 (4.30-5.90); White Blood Cell Count 14.79 K/mm3 (4.00-11.30)
[2018-11-08 04:18] LABS: Alanine Aminotransfer (ALT/SGP 16 U/L (12-78); Albumin, Blood 2.8 g/dL (3.4-5.0); Albumin/Globulin Ratio 0.9 (0.8-1.8); Alk Phos 53 U/L (50-136); Anion Gap 2 mmol/L (6-16); Aspartate Aminotrans (AST/SGOT 10 U/L (12-37); Bilirubin, Total 0.2 mg/dL (0.1-1.0); Blood Urea Nitrogen 20 mg/dL (8-24); CO2, Blood 37 mmol/L (21-32); Calcium, Blood 8.7 mg/dL (8.5-10.1); Chloride, Blood 100 mmol/L (98-108); Creatinine, Blood 0.83 mg/dL (0.60-1.20); Glomerular Filtration Rate >60 (60-); Glucose, Blood 114 mg/dL (70-99); Potassium, Blood 4.6 mmol/L (3.5-5.5); Sodium, Blood 139 mmol/L (136-145); Total Protein, Blood 5.8 g/dL (6.4-8.2)
--- NOTE | 2018-11-08 05:41 | NUR ---
NOC SHIFT SUMMARY PT IS PLEASANT AND COOPERATIVE WITH CARE. VSS. ON 2.5L O2 VIA NASAL CANULA. USES TRILOGY BIPAP MACHINE AT NIGHT WITH 2L O2 BLED IN. WAS TAKEN OFF TELE ON 11/08. HEART SOUNDS REGULAR. OCCASIONAL COUGH, LUNGS DIM IN BASES. RESP ARE EVEN AND UNLABORED AT REST BUT PT BECOMES VERY SOB WITH ACTIVITY. ABLE TO AMBULATE TO BATHROOM WITH FWW. NO ACUTE CHANGES NOTED THIS SHIFT. PRESENTLY PT IS SITTING UP AND AWAKE IN BED. WILL CONTINUE TO MONITOR.
--- NOTE | 2018-11-08 12:10 | NUR ---
Patient states that he feels stronger today. Patient complains of a continued pain in his lower abdomin that he has made his doctors aware of. Patient is also concerned about his living arrangement. Patient shared about his family and their history and how the dynamics have been through the years. I listen to patient and provide pastoral direct care counselor, spiritual guidance and prayer. Patient states that he appreciates my visit. I will continue to to remain available to patient and family.
--- NOTE | 2018-11-08 17:38 | NUR ---
TRANSFER NOTE HANDOFF REPORT RECEIVED FROM PCU NURSE MEAGHAN. 58 YR OLD MALE ADMITTED FOR COPD EXACERTATION. DNR CODE. REGULAR DIET. DROPLET/CONTACT PRECAUTIONS FOR MRSA IN [place] & SP[place]. HE LIVED WITH HIS BROTHER, BUT HIS BROTHER WILL NOT ALLOW HOME HEALTH TO ENTER HIS HOME. PT WILL NEED PLACEMENT IN A SNF AT DISCHARGE. THE ISSUE WITH THAT IS THE PT USES A DEVICE CALLED A TRILOGY AND SNF'S ARE RELUCTANT TO TAKE THOSE TYPES OF PT'S. PT USES A BIPAP @ NIGHT. HE IS RUNNING 2 LPM O2 VIA NC RIGHT NOW, WHICH IS HIS BASELINE. TAKES HIS PILLS WHOLE WITH WATER. STANDBY ASSIST. OT/PT ARE WORKING WITH THIS PT.
--- NOTE | 2018-11-09 04:46 | NUR ---
STUDENT ADVISOR SUMMARY NO ACUTE CHANGES THIS SHIFT. PT STATES BREATHING IS IMPROVED. HAS BEEN ON 2L O2 WHILE AWAKE AND USING TRILOGY CPAP WHILE SLEEPING. DENIES PAIN, N/V. VSS, WILL CONTINUE TO MONITOR.
--- NOTE | 2018-11-09 11:42 | NUR ---
I stop by patient's room and ask if patient would like a visit today and he motions to his throat and says that he can't talk well today. I ask if I could say a quick prayer for him and he says, "Sure." I gladly say a prayer. Patient thanks me and informs me that he still does not have adequate housing to do to when he is discharged. He says that the [facility] staff is working on it. I say I will be praying for this situation.
--- NOTE | 2018-11-09 16:50 | NUR ---
PT REMAINS A/O, SOB WITH TALKING AND EXERTION. USES 2LNC DURING THE DAY AND CPAP AT NIGHT. CONTINUOUS BIOX IN USE. NO REPORTS OF PAIN THIS SHIFT. NO ACUTE CHANGES NOTED. WILL CONTINUE TO MONITOR AND REPORT TO ONCOMING RN
--- NOTE | 2018-11-09 18:26 | NUR ---
PT TRANSPORTED TO IMAGING (APPROX 1730) VIA GURNEY FOR CT SCAN OF ABD AND RETURNED APPROX 30 MIN LATER. TOLERATED WELL.
--- NOTE | 2018-11-09 18:28 | NUR ---
NO ACUTE CHANGES NOTED THIS SHIFT, NO REPORTS OF PAIN, REMAINS ON 2LNC, TOLERATED HIS CT SCAN THIS AFTERNOON. WILL CONTINUE TO MONITOR AND REPORT TO ONCOMING RN
--- NOTE | 2018-11-10 05:15 | NUR ---
ACID PAINTER SUMMARY NO ACUTE CHANGES THIS SHIFT. PT AAOX4, STANDBY ASSIST W/ FWW TO BATHROOM. CONTINUES ON IV SOLUMEDROL. O2 VIA NC AND CPAP WHILE SLEEPING. PT DENIES PAIN, N/V. MILD SOB WITH EXERTION. VSS, WILL CONTINUE TO MONITOR.
[2018-11-10 05:50] LABS: BASOPHILS ABSOLUTE AUTO 0.02 K/mm3 (0.00-0.23); BASOPHILS PERCENT AUTO 0 % (0-2); EOSINOPHILS PERCENT AUTO 0 % (0-6); Hematocrit 39.1 % (37.0-53.0); IMMATURE GRAN ABSOLUTE AUTO 0.11 K/mm3 (0.00-0.10); IMMATURE GRAN PERCENT AUTO 1 % (0-1); LYMPHOCYTES ABSOLUTE AUTO 1.15 K/mm3 (0.84-5.20); LYMPHOCYTES PERCENT AUTO 9 % (21-46); MONOCYTES ABSOLUTE AUTO 0.56 K/mm3 (0.16-1.47); MONOCYTES PERCENT AUTO 5 % (4-13); Mean Corpuscular HGB 30.5 pg (26.0-34.0); Mean Corpuscular HGB Conc 33.2 g/dL (31.5-36.5); Mean Corpuscular Volume 92 fL (80-100); Mean Platelet Volume 9.4 fL (9.1-12.4); NEUTROPHILS ABSOLUTE AUTO 10.47 K/mm3 (1.96-9.15); NEUTROPHILS PERCENT AUTO 85 % (41-73); Platelet Count 436 K/mm3 (150-400); RDW Coefficient Variation 14.1 % (11.7-14.2); RDW Standard Deviation 47.7 fL (35.1-46.3); Red Blood Cell Count 4.26 M/mm3 (4.30-5.90); White Blood Cell Count 12.31 K/mm3 (4.00-11.30)
[2018-11-10 06:14] LABS: Alanine Aminotransfer (ALT/SGP 27 U/L (12-78); Albumin, Blood 2.9 g/dL (3.4-5.0); Alk Phos 53 U/L (50-136); Anion Gap 3 mmol/L (6-16); Aspartate Aminotrans (AST/SGOT 16 U/L (12-37); Bilirubin, Total 0.6 mg/dL (0.1-1.0); Blood Urea Nitrogen 23 mg/dL (8-24); Bun/Creatinine Ratio 29.4 (12.0-20.0); CO2, Blood 36 mmol/L (21-32); Calcium, Blood 9.1 mg/dL (8.5-10.1); Chloride, Blood 100 mmol/L (98-108); Creatinine, Blood 0.78 mg/dL (0.60-1.20); Globulin, Blood 2.9 g/dL (2.2-4.0); Glomerular Filtration Rate >60 (60-); Glucose, Blood 103 mg/dL (70-99); Potassium, Blood 4.5 mmol/L (3.5-5.5); Sodium, Blood 139 mmol/L (136-145); Total Protein, Blood 5.8 g/dL (6.4-8.2)
--- NOTE | 2018-11-10 16:19 | NUR ---
SHIFT SUMMARY THE PATIENT PRESENTED THIS SHIFT WITH VITALS WNL, A&O X4 AND WITH LUNG SOUNDS THAT WERER DIMINISHED THROUGHOUT. THE PATIENT BECOMES SOB WITH EXCERTION, SUCH MOVING TO THE BATHROOM. THE PATIENT HAS BEEN IN HIS ROOM CALLING NEEDED. THE PATIENT HAD VISTIORS THIS AFTER NOON AND IS NOW WATCHING TV AND RESTING. WILL CONTINUE TO MONITOR.
--- NOTE | 2018-11-11 05:02 | NUR ---
SHIFT SUMMARY: PT IS ALERT AND ORIENTED. PT IS CALM AND COOPERATIVE WITH CARE. PT CALLS APPROPRIATELY. PT IS INDEPENDENT IN THE ROOM. PT REPORTS SOB UPON EXERTION, O2 @ 2 L AND CPAP @ NIGHT. PT DENIES PAIN, NAUSEA, AND VOMITING. PT SLEPT MUCH OF THE NIGHT WHEN NOT DISTURBED. NO ACUTE CHANGES OR COMPLICATIONS THIS SHIFT. BED IN LOW POSITION, CALL LIGHT WITHIN REACH. WILL CONTINUE TO MONITOR.
--- NOTE | 2018-11-11 17:14 | NUR ---
SHIFT SUMMARY- PT A/OX3, INDEP IN ROOM. PT DENIES ANY COMPLAINTS. PT REPORTS FEELING CONSTIPATION THIS AM, BM'S X2. LS DIMINISED, ON 2L N/C WHICH IS HIS BASELINE AT HOME. SOB WITH EXERTION. TRILOGY AT HS, CONT BIOX. PT AWAITING D/C TO SNF WHEN READY. NO OTHER ACUTE CHANGES THIS SHIFT.
--- NOTE | 2018-11-12 03:42 | NUR ---
SHIFT SUMMARY- PT. RESTING QUIETLY IN BED, NO APPARENT DISTRESS NOTED. PT. HAVING SOB WITH EXERTION. ON DURING THE DAY AND BIPAP @HS. ALERT AND INDEPENDENT TO BATHROOM. SNF D/C PENDING. CALL LIGHT WITHIN REACH AND SIDE RAILS UP X2. WILL CONT TO MONITOR.
--- NOTE | 2018-11-12 17:24 | NUR ---
SHIFT SUMMARY- PT REPORT MILD ABD PAIN. PT REFUSED PAIN MEDS. DENIES N/V. REPORTS SOB WITH EXERTION. 95% ON 2L O2 NC. BREATHING TREATMENTS PER EMAR. PHYSICAL AND OCCUPATIONAL THERAPISTS IN TO WORK WITH PT TODAY. NO OTHER SIGNIFICANT CHANGES THIS SHIFT.
--- NOTE | 2018-11-13 04:41 | NUR ---
SHIFT SUMMARY- PT. SLEPT WELL T/O THE NIGHT, NO APPARENT DISTRESS NOTED. SATS MAINTAINED ABOVE 90% ON 2L OF 02. INDEPENDENTLY AMBULATES TO THE BATHROOM WITH WALKER. IS SOB ON EXERTION WITH SOME WEAKNESS. AWAITING FOR SNF PLACEMENT. CALL LIGHT WITHIN REACH AND SIDE RAILS UP X2. WILL CONT TO MONITOR.
--- NOTE | 2018-11-13 11:51 | NUR ---
PT EXPRESSED CONCERN ABOUT CONSTIPATION TO PHYSICAL THERAPY. THIS RN DISCUSSED OPTIONS FOR FURTHER MEDS OR PRUNE JUICE MIXTURE OR EVEN POWER PUDDING TO TRAYS. PT DECLINED ALL OPTIONS AT THIS TIME. EDUCATED PT THAT IF HE BECOMES UNCOMFORTABLE OR CHANGES HIS MIND TO LET STAFF KNOW. PT AGREED TO THIS
--- NOTE | 2018-11-13 18:56 | NUR ---
SHIFT SUMMARY: PT CONTINUES TO BE SOB WITH EXERTION. DENIED NEEDS T/O DAY. WORKED WITH PHYSICAL THERAPY AND OCCUPATIONAL THERAPY. INDEPENDENT IN ROOM. NO ACUTE CHANGES
--- NOTE | 2018-11-14 05:18 | NUR ---
SHIFT SUMMARY- NO ACUTE CHANGES. PT. REQUESTED SLEEPING AID FOR THE NIGHT. MELATONIN GIVEN PER ORDER. APPEARED TO HAVE RESTED T/O THE NIGHT. AMBULATES WITH WALKER TO BATHROOM INDEP. ON 2L OF AND BIPAP @HS. ON A CONTINOUS PULSE OX. DENIED ANY FURTHER NEEDS. CALL LIGHT WITHIN REACH AND SIDE RAILS UP X2. WILL CONT TO MONITOR.
--- NOTE | 2018-11-14 08:00 | NUR ---
ASSUMED CARE ASSUMED CARE OF PT APPROX. 0700. PT A&OX4. ASSESSMENT COMPLETED. VITAL SIGNS STABLE. PT REPORTS THAT BACK HURTS THIS MORNING. PRN MEDICIATIONS GIVNE PER EMAR. PT REPROTS BREATHING FEELS "OKAY" THIS MORNING. PT REPORTS HE WAS UNABLE TO REST LAST NIGHT. HE REPORTS DUE TO PAIN AND NOISE WAS UNABLE TO GET MUCH REST. PT SITTING IN BED. BED IN LOW POSITION, CALL LIGHT IN REACH AND PT DENIES ANY NEEDS AT THIS TIME.
--- NOTE | 2018-11-14 18:31 | NUR ---
SHIFT SUMMARY PT PLEASANT, COOPERATIVE AND USES CALL LIGHT APPROPRIATELY. ALTHOUGH PT HAD SOME MOMENTS OF INCREASED AGGITATION. WHEN INQUIRED ABOUT THIS PT REPORTS THIS IS DUE TO NOT GETTING SLEEP THE LAST COUPLE OF NIGHTS. PT ABLE TO AMBULATE TO BATHROOM NEEDED AND TOLERATED WELL. SPOKE WITH PHYSICIAN ABOUT INABLILITY TO SLEEP AND PHYSICIAN ADJSUTED PT MEDICAITON ORDERS. ASSESSMENT FINDINGS REMAIN UNCHANGED SINCE START OF SHIFT. MEDICATIONS WERE ADJUSTED TO TRY AND HELP WITH ABDOMINAL PAIN THAT HAS REMAINED THERE FOR SEVERAL DAYS. PT HOPEFULLY THIS WILL BEGIN TO MAKE SOME IMPROVEMENT. BED IN LOW POSITION, CALL LIGHT IN REACH AND PT DENIES ANY NEEDS AT THIS TIME. WILL CONTINUE TO MONIOR UNTIL HANDOFF TO NIGHTSHIFT RN.
[2018-11-15 05:28] LABS: BASOPHILS ABSOLUTE AUTO 0.05 K/mm3 (0.00-0.23); BASOPHILS PERCENT AUTO 0 % (0-2); EOSINOPHILS PERCENT AUTO 3 % (0-6); Hematocrit 39.9 % (37.0-53.0); Hemoglobin 13.2 g/dL (13.5-17.5); IMMATURE GRAN ABSOLUTE AUTO 0.35 K/mm3 (0.00-0.10); IMMATURE GRAN PERCENT AUTO 2 % (0-1); LYMPHOCYTES ABSOLUTE AUTO 3.46 K/mm3 (0.84-5.20); LYMPHOCYTES PERCENT AUTO 24 % (21-46); MONOCYTES ABSOLUTE AUTO 1.39 K/mm3 (0.16-1.47); MONOCYTES PERCENT AUTO 10 % (4-13); Mean Corpuscular HGB Conc 33.1 g/dL (31.5-36.5); Mean Corpuscular Volume 94 fL (80-100); NEUTROPHILS ABSOLUTE AUTO 8.99 K/mm3 (1.96-9.15); NEUTROPHILS PERCENT AUTO 62 % (41-73); Platelet Count 405 K/mm3 (150-400); RDW Coefficient Variation 14.4 % (11.7-14.2); RDW Standard Deviation 49.2 fL (35.1-46.3); Red Blood Cell Count 4.26 M/mm3 (4.30-5.90); White Blood Cell Count 14.64 K/mm3 (4.00-11.30)
[2018-11-15 05:56] LABS: Anion Gap 4 mmol/L (6-16); Blood Urea Nitrogen 19 mg/dL (8-24); Bun/Creatinine Ratio 24.4 (12.0-20.0); CO2, Blood 34 mmol/L (21-32); Calcium, Blood 8.7 mg/dL (8.5-10.1); Chloride, Blood 102 mmol/L (98-108); Creatinine, Blood 0.78 mg/dL (0.60-1.20); Glomerular Filtration Rate >60 (60-); Glucose, Blood 70 mg/dL (70-99); Potassium, Blood 4.2 mmol/L (3.5-5.5); Sodium, Blood 140 mmol/L (136-145)
--- NOTE | 2018-11-15 06:23 | NUR ---
SHIFT SUMMARY PT IS A 58 Y/O MALE, ADMITTED WITH COPD EXACERBATION. HE IS A&O X 4, AND INDEPENDENT IN THE ROOM. PT DENIED ANY ACUTE OR ABD PAIN, NAUSEA OR ACUTE SOB. HE HAS BEEN REPORTING INSOMNIA FOR THE PAST COUPLE OF NIGHTS, AND AFTER HIS BEDTIME MEDS WERE ADJUSTED HE WAS ABLE TO SLEEP FOR A COUPLE OF HOURS DURING THE NIGHT. PT REMAINED ON 2L OF O2 VIA NC. VITALS REMAINED STABLE. NO OTHER ACUTE CHANGES IN PT CONDITION NOTED DURING THE NIGHT. WILL CONTINUE TO MONITOR AND TREAT PER EMAR UNTIL HAND OFF TO DAY SHIFT.
--- NOTE | 2018-11-15 17:39 | NUR ---
SHIFT SUMMARY PT AXO, PLEASANT AND COOPERATIVE WITH CARE. PT COMPLAINS OF CHRONIC BACK AND SHOULDER PAIN AND NEW ABDOMINAL PAIN. PT THINKS IS RELATED TO HIS BOWELS. PT HAS HAD MULTIPLE LARGE BM'S AND SMALL BMS. PT STATES THAT HE IS FEELING BETTER. DENIES SOB THOUGH AT TIMES APPEARS SOB. VSS THOUGH HR TACH AT TIMES. PT STATES HE HAS AMBULATED TO BATHROOM AND AROUND ROOM MULTIPLE TIMES THIS SHIFT. PT UP TO CHAIR AT THIS TIME EATING DINNER WITH GOOD APPETITE. NO OTHER CHANGES. BED IN LOW POSITION, CALL LIGHT WITHIN REACH.
--- NOTE | 2018-11-16 04:38 | NUR ---
SHIFT SUMMARY PT IS A 58 Y/O MALE, ADMITTED FOR COPD EXACERBATION. HE IS A&O X 4, AND INDEPENDENT IN THE ROOM. HE REPORTED BACK PAIN, FOR WHICH HE WAS MEDICATED ONCE WITH TYLENOL. NO COMPLAINTS OF ACUTE SOB OR NAUSEA. VITALS STABLE. PT SLEPT WELL DURING THE NIGHT. NO OTHER ACUTE CHANGES IN PT CONDITION NOTED. WILL CONTINUE TO MONITOR AND TREAT PER EMAR UNTIL HAND OFF TO DAY SHIFT.
--- NOTE | 2018-11-16 18:42 | NUR ---
shift summary patient is pleasant. alert and oriented. he is aware at this point that his old place of residency is no longer safe and he is awaiting placement.
--- NOTE | 2018-11-17 04:37 | NUR ---
NOC SHIFT SUMMARY PT IS PLEASANT AND COOPERATIVE WITH CARE. AAOX4. RESP ARE E/U AT REST THOUGH HE DOES BECOME SOB WHEN HE SPEAKS TOO MUCH. HAS SLEPT MUCH OF THE NIGHT WITH NO COMPLAINTS. AWAITING PLACEMENT. VSS. NO ACUTE CHANGES NOTED THIS SHIFT. WILL CONTINUE TO MONITOR.
--- NOTE | 2018-11-18 03:46 | NUR ---
NOC SHIFT SUMMARY PT ADMITTED FOR COPD EXACERBATION WHICH HAS IMPROVED AND IS PRESENTLY AWAITING PLACEMENT. HE IS AAOX4. RESP ARE EVEN AND UNLABORED AT REST BUT BECOMES BREATHLESS WITH ACTIVITY. NO ACUTE CHANGES NOTED THIS NIGHT. VSS. PRESENTLY APPEARS TO BE SLEEPING. WILL CONTINUE TO MONITOR.
--- NOTE | 2018-11-18 17:38 | NUR ---
SHIFT SUMMARY PATIENT IS PLEASANT, NO ACUTE CONCERNS AT THIS TIME. HE IS WORKING ON HIS PLACEMENT AND AWAITING CALLS BACK FROM [address] [facility]. CURRENTLY HE HAS HEARD BACK FROM ONE PLACE IN [place]. PATIENT IS CURRENTLY CONTENT MOVING AROUND IN HIS ROOM ALTHOUGH HE GETS DYSPNEIC.
--- NOTE | 2018-11-19 06:27 | NUR ---
NOC SHIFT SUMMARY PT IS PLEASANT AND COOPERATIVE WITH CARE. SLEPT MOST OF NIGHT. VSS. AWAITING PLACEMENT. NO ACUTE CHANGES NOTED THIS NIGHT. WILL CONTINUE TO MONITOR.
--- NOTE | 2018-11-19 18:35 | NUR ---
SHIFT SUMMARY PT INDEPENDENT IN ROOM USING FWW. DYSPNEIC WITH ANY EXERTION AND STATES HE REQUIRES UP TO 10 MINUTES TO RECOVER AFTER ACTIVITY. HAS DENIED PAIN OR NAUSEA TODAY. STATES HE IS JUST WAITING FOR A PLACE THAT WILL ALLOW HIM TO USE HIS TRILOGY MACHINE FOR SLEEP.
--- NOTE | 2018-11-19 19:57 | NUR ---
Assumed care of patient. Patient on phone and dangling at bedside. no apparent distress. moving around independently in the room. call colmenares within reach
--- NOTE | 2018-11-20 19:35 | NUR ---
SHIFT SUMMARY PT REPORTS HE HAS HAD ABDOMENAL ALL DAY AND SINCE HE GOT TO THE HOSPITAL 2 WEEKS AGO. APPEARED TO HAVE SIGNIFICANT PAIN THIS EVENING. DOES REPORT SEVERAL BMS TODAY. SPOKE WITH MD ON PHONE AND RECEIVED NEW ORDERS. SOB WITH ANY ACTIVITY. INDEPENDENT IN TO BATHROOM USING FWW.
--- NOTE | 2018-11-20 21:02 | NUR ---
ABD/GI COCKTAIL/ CT SCAN ASSESSED PT ABD PAIN AN HOUR AFTER GI COCKTAIL. PAIN HAS IMPROVED. HE STATES IT IS ABOUT A 2. HE STATES HE FEELS BETTER, JUST "GASSY". HE HAS HAD A BM SINCE RECEIVING. SPOKE WITH CHARGE NURSE ROSS JACKSON RN. WILL NOT ORDER CT SCAN AT THIS TIME GIVEN GI COCKTAIL HAS BEEN EFFECTIVE IN RELEIVING PAIN. PT IS AWARE OF PLAN OF CARE AND AGREES. SEE NURSE NOTIFY REGARDING CT ORDER.
--- NOTE | 2018-11-21 04:06 | NUR ---
SHIFT SUMMARY NO ACUTE CHANGES OVERNIGHT. PT ABD PAIN IMPROVED AN HOUR AFTER RECEIVING GI COCKTAIL DURING SHIFT CHANGE. TOWARDS THE END OF THE SHIFT HE REPORTS THAT HIS ABD PAIN WAS COMPLETLY GONE. PT HAS RESTED MOST OF THE NIGHT. PT COMPLAINED OF RED RASH ON FEET. SIMILAR RASH ON BOTH HEELS. HE DENIES ITCHING THERE, OR PAIN. NO OOZING FROM SITES. BARRIER CREAM APPLIED AND SOCKS REMOVED TO ALLOW FEET TO AIR DRY. WILL NOTIFY DAYSHIFT RN FOR FOLLOW UP. OTHERWISE PT ASSESSMENT HAS REMAINED UNCHANGED. HE HAS BEEN PLESANT AND COOPERATIVE WITH CARE. WILL CONTINUE TO MONITOR AND REPORT TO ONCOMING RN.
[2018-11-21 05:08] LABS: Hematocrit 37.7 % (37.0-53.0); Hemoglobin 12.4 g/dL (13.5-17.5); Mean Corpuscular HGB 30.6 pg (26.0-34.0); Mean Corpuscular HGB Conc 32.9 g/dL (31.5-36.5); Mean Corpuscular Volume 93 fL (80-100); Mean Platelet Volume 8.8 fL (9.1-12.4); Platelet Count 397 K/mm3 (150-400); RDW Coefficient Variation 14.6 % (11.7-14.2); RDW Standard Deviation 49.5 fL (35.1-46.3); Red Blood Cell Count 4.05 M/mm3 (4.30-5.90); White Blood Cell Count 14.66 K/mm3 (4.00-11.30)
[2018-11-21 05:23] LABS: Anion Gap 3 mmol/L (6-16); Blood Urea Nitrogen 17 mg/dL (8-24); CO2, Blood 35 mmol/L (21-32); Calcium, Blood 8.9 mg/dL (8.5-10.1); Chloride, Blood 102 mmol/L (98-108); Glomerular Filtration Rate >60 (60-); Glucose, Blood 91 mg/dL (70-99); Potassium, Blood 4.2 mmol/L (3.5-5.5); Sodium, Blood 140 mmol/L (136-145)
--- NOTE | 2018-11-21 19:34 | NUR ---
SHIFT SUMAMRY: NO ACUTE CHANGES TO REPORT THIS SHIFT. PT A&O; CALM AND COOPERATIVE WITH CARE; INDEPENDENT IN ROOM. ABD PAIN CONTINUING; ABD CT c CONTRAST THIS SHIFT; AWAITING RESULTS. TREVER FINN AT [facility]. AWAITING PLACEMENT. REPORT GIVEN TO ONCOMING RN.
--- NOTE | 2018-11-22 05:56 | NUR ---
SHIFT SUMMARY PT A/O INDEPENDENT. SOB C EXERTION. 2L O2 NC BIPAP AT HS. HE WAS ABLE TO SLEEP T/O NIGHT. C/O PAIN ON AND OFF IN ABD BUT DIDN'T WANT ANYTHING FOR IT. CALL LIGHT IN REACH.
--- NOTE | 2018-11-22 12:49 | NUR ---
PATIENT STS HAS HAD MULITPLE B.M. AND FEELS BETTER AFTERWARDS.
--- NOTE | 2018-11-22 17:26 | NUR ---
ALERT. ORIENTED. C/O ABD PAIN THIS AM AND DISCUSSED CONSTIPATION AND CT RESULTS WITH PATIENT. STS WAS ADMITTED FOR "ABD PAIN NOT DIFFCULTY BREATHING." PATIENT HAS VOICED THAT HE FEELS BETTER AFTER BOWEL MOVEMENTS TODAY. ON OXYGEN AND GETS SOB WITH EXERTION. IV PATENT AND WAS PUT IN FOR CT YESTERDAY, SO IF NOT WORKING PATIENT CAN BE NO IV ASSESS NEEDED. NO ACUTE CHANGES THIS SHIFT. AWAITING PLACEMENT. BED IN LOW POSITION. PATIENT TAKES OFF FINGER PROBE TO USE BATHROOM. WCTM.
--- NOTE | 2018-11-23 06:35 | NUR ---
SHIFT SUMMARY PT A/O INDEPENDENT. STILL SOB C EXERTION. 2L O2 NC AND WORE BIPAP AT HS. SAID HE WAS HAVING MULTIPLE BMS UP UNTIL ABOUT 2200. ABLE TO SLEEP T/O NIGHT. CALL LIGHT IN REACH.
--- NOTE | 2018-11-23 09:15 | NUR ---
PT IRRITATED, FRUSTRATED THAT CALL LITE NOT ANSWERED IN TIMELY FASHION. HAD CALLED AIDE, NO RESPONSE. EXPLAINED JUST GOT CALL TO ME, SO AM HERE. DID BEST TO CALM PT. HAD WANTED OATMEAL. NOT INTERESTED NOW. BROUGHT CUP HOT COFFEE. PT A/O. ANXIOUS, IRRITATED. H/R REG, NO MURMER NOTED. NO TELE. LUNGS COARSE, RESP LABORED. REGULAR. ON 2L O2. BT X4 LAST BM YST. VOIDS PER BATHROOM. INDEPENDANT ON ROOM. BED IN LOW POSITION, CALL LITE IN REACH. CALLS APPRP
--- NOTE | 2018-11-23 14:54 | NUR ---
PT IN RESTROOM. OXYGEN TUBING IN BATHROOM IUMDER DOORWAY. ASKED PT OKAY, HE AFFIRMED IS FINE. ASKED IF NEEDS ANYTHING, HE DECLINED NEEDS. NO OTHER CONCERNS AT THIS TIME.
--- NOTE | 2018-11-23 16:36 | NUR ---
PT PLEASANT SINCE ORIGINAL IRRITATION THIS AM. HAVE CHECKED ON HIM REGULARLY. PT SITTING IN CHAIR
--- NOTE | 2018-11-23 16:37 | NUR ---
PT PLEASANT SINCE ORIGINAL IRRITATION THIS AM. SITTING IN CHAIR AT THIS TIME. PT DENIES NEEDS AT THIS TIME. NO OTHER CONCERNS AT THIS TIME. PT AMBULATES TO BATHROOM INDEPENDANTLY. NO OTHER CONCERNS AT THIS TIME. BED IN LOW POSITION, CALL LITE IN REACH, CALLS APPROP
--- NOTE | 2018-11-24 03:40 | NUR ---
Attempted to walk into PT's room, and PT yelled "You shouldnt be in here". Earlier I had told him, I was going to be in there to take his vitals and he agreed. Later, When I went to do vitals, he requested me out of his room.
--- NOTE | 2018-11-24 05:36 | NUR ---
SHIFT SUMMARY: PT IS ALERT AND ORIENTED. PT IS INDEPENDENT IN THE ROOM. PT IS MOSTLY COOPERATIVE WITH CARE, BECAME IRRITATED WITH THE MANAGER INTERMEDIATE FOR ENTERING HIS ROOM FOR MORNING VS, PT REFUSED THEM BEING TAKEN. PT REPORTS HEADACHE, GAVE PRN TYLENOL. PT REPORTS SOB UPON EXERTION. PT DENIES NAUSEA AND VOMITING. PT SLEPT MUCH OF THE NIGHT WHEN NOT DISTURBED. AWAITING PLACEMENT. NO ACUTE CHANGES OR COMPLICATIONS THIS SHIFT. WILL CONTINUE TO MONITOR.
--- NOTE | 2018-11-24 18:34 | NUR ---
SHIFT SUMMARY PT AXO, INDEPENDENT IN ROOM. PT UPSET THIS MORNING R/T BEING WOKEN UP DURING THE NIGHT. PT COMPLAINED OF CONSTIPATION, MEDICATED PER EMAR. PT HAD MULTIPLE BM THIS SHIFT. DENIES CONSTIPATION AT THIS TIME. VSS. BED IN LOW POSITION, CALL LIGHT WITHIN REACH.
--- NOTE | 2018-11-25 04:50 | NUR ---
SHIFT SUMMARY: PT IS ALERT AND ORIENTED. PT IS CALM AND COOPERATIVE WITH CARE. PT CALLS APPROPRIATELY. PT DOES NOT LIKE TO BE DISTURBED DURING THE NIGHT. PT SLEPT MUCH OF THE NIGHT. PT DENIES PAIN, NAUSEA, VOMITING, AND SOB. NO ACUTE CHANGES OR COMPLICATIONS. WILL CONTINUE TO MONITOR.
--- NOTE | 2018-11-25 19:16 | NUR ---
SHIFT SUMMARY PT AXO, IRRITABLE BUT COOPERATIVE WITH CARE. PT PLEASANT THIS MORNING WITH MORNING MEDS AND FOR MOST OF THE DAY BUT THEN BECAME UPSET WHEN HIS DINNER TRAY WAS DELIVERED R/T HIS FOOD ITEMS BEING NOT WHAT HE ORDERED. PT DENIED PAIN UNTIL SHIFT CHANGE WHEN HE COMPLAINED OF HEADACHE. VSS. UP INDEPENDENT IN ROOM. BED IN LOW POSITION, CALL LIGHT WITHIN REACH. NO OTHER CHANGES THIS SHIFT.
--- NOTE | 2018-11-26 05:55 | NUR ---
a+o, no IV, room air, requested to not be disturbed, call light in reach much more cheerful this am after being allowed to rest undisturbed, breathing treatment performed
--- NOTE | 2018-11-26 19:25 | NUR ---
SHIFT SUMMARY: NO ACUTE CHANGES TO REPORT THIS SHIFT. PT A&O; IRRITABLE; COOPERATIVE WITH CARE. PT INDEPENDENT IN ROOM. O2 @ 1.5L; PT USES HOME O2 EQUIPMENT AT NIGHT. NO C/O PAIN THIS SHIFT. PHYSICAL THERAPY FOLLOWING. AWAITING PLACEMENT. REPORT GIVEN TO ONCOMING RN.
--- NOTE | 2018-11-27 06:06 | NUR ---
continues to await placement, a+o, angers easily but is pleasent and personable when things go his way, call light in reach, no IV, independant in room, medicated successfully for abdmn pain, will continue to monitor and treat until share bsr with day staff.
--- NOTE | 2018-11-27 17:11 | NUR ---
HAD A LONG DISCUSION WITH PT TODAY REGARDING HIS CONDITION AND HOSPICE. PT WAS AT FIRST VERY AGGITATED AND APRIHENSIVE TO DISCUSSION WITH RT, BUT THROUGH TALKING WITH PT HE EVENTUALLY RELAXED AND HAD INDEPTH DISCUSSION WITH ME. HE FEELS THAT HE IS ASKED QUESTIONS BUT THAT NO ONE REALLY WANTS TO HEAR HIS ANSWERS OR WHAT HE THINKS, WHEN ASKED IF HE CURRENTLY FEELS THAT WAY IN THIS DISCUSSION HE SAID HE DIDN'T THINK SO BUT THAT HE WAS UNSURE. WE DISCUSSED HIS PRECONCIEVED IDEA THAT HOSPICE MEANS AND THAT IT REALLY IS MORE HELP AND COMFORT FOR HIM MOVING FORWARD AND THAT IT IS POSSIBLE THAT ON IT HE COULD IMPROVE AND COME OFF OF IT LATER. HE IS STILL VERY HESITANT AND HAS OTHER THINGS HE IS CONSIDERING BUT WOULDN'T READILY COME FORWARD WITH THEM AT THIS TIME. PT APPEARS TO HAVE VERY GOOD MENTAL COPING SKILLS FOR HIS BREATHING AND STOMACH DISCOMFORT, HE CLAIMS THE SOB ISN'T AN ISSUE FOR HIM IT IS HIS STOMACH AND HE FEELS NO ONE WILL LISTEN TO THIS. HE FEELS THAT HE MAY BE ALLERGIC TO HIS [place] STEROIDS AND THAT HE DIDN'T HAVE THIS PROBLEM ON ADVAIR AND HE WANTS TO DISCUSS THIS WITH HIS PCP WHICH HE APPEARS TO HAVE A GREAT RESPECT FOR. RELAYED ALL THIS INFO ON TO [employer] AND OTHER THINGS OF NOTE FROM THE VISITS TO GET HIM TO OPEN UP AND HAVE A DISCUSSION SO THAT MAYBE SHE CAN GET FURTHER WITH HIM LATER. WE COLLECTIVELY FEEL THAT MAYBE A CULTURAL HISTORIAN WITH PTS PCP MAY EVEN YEILD BETTER RESULTS, WILL DISCUSS MORE WITH PT NEEDED TO SEE IF WE CAN'T COME TO A PLAN TO HELP ASSIST HIM TO COPE WITH HIS CONDITIONS AND POSSIBLY IMPROVE.
--- NOTE | 2018-11-27 18:03 | NUR ---
SHIFT SUMMARY- PT C/O ABD PAIN. MEDS GIVEN PER EMAR. PT DENIES N/V. REPORTS SOB WITH ACTIVITY. BREATHING TREATMENTS PER EMAR. 96% ON 2L O2 NC. INDEPENDENT IN THE ROOM. NO OTHER SIGNIFICANT CHANGES THIS SHIFT.
--- NOTE | 2018-11-28 04:41 | NUR ---
a+o, took medication except for bowel care, discussed ramifications for not taking prescribed medicationm, call light in reach, when woke up at 0430 called and asked for coffee and agreed to allow vs and morning medication if he got cup of coffee, aid made a freash pot and he was cooperative with care, room air at that time and IV locked with no s/sx of infection, bed in low position, sitting on side of bed, self transfered to toilet, will continue to monitor and treat until do bsr with day staff
--- NOTE | 2018-11-28 17:29 | NUR ---
SHIFT SUMMARY PT WAS VERY ANGRY THIS AM WHEN THIS RN WAS GETTING REPORT FROM NOC RN. THIS RN TALKED WITH PT AND HE BECAME CALMER AFTER. PT REQUESTED TO TALK WITH THE PT ADVOCATE. THIS RN CALLED HER AND PT ADVOCATE CAME TO SEE HIM. MEDICATED FOR PAIN X1 THIS SHIFT PER EMAR. PT HAS HAD NO FURTHER COMPLAINTS OR REQUESTS THIS SHIFT. PT/OT TOOK PT OUTSIDE FOR A BIT AND PT ENJOYED HIT. BOARD RUNNER CONTINUES TO WORK ON TRYING TO PLACE PT WITH TRILOGY. NO ACUTE CHANGES THIS SHIFT. WILL CONTINUE TO MONITOR AND REPORT TO ONCOMING RN. CALL LIGHT IN REACH.
--- NOTE | 2018-11-28 21:21 | NUR ---
PT REQUESTED STAFF TO NOT ENTER ROOM AFTER 2100 UNTIL HE WAKES IN THE MORNING AND CALLS STAFF VIA CALL LT. DISCUSSED WITH PT THAT HOSPITAL POLICY IS Q2H ROUNDING AT NIGHT AND PT REFUSED AND INSISTED TO NOT ENTER RM AFTER 2100 AND ALLOW PT TO SLEEP. DISCUSSED PT WISHES WITH JUNIOR LINUX SYSTEMS ADMINISTRATOR.
--- NOTE | 2018-11-29 05:37 | NUR ---
SHIFT SUMMARY PT HAS HAD A PLEASANT NIGHT. PT IS A&O, INDEPENDENT IN RM. INDEPENDENTLY ALTERNATES BETWEEN NC AND TRILOGY IN DEPENDING ON NEEDS. CONT PULSE OX IN PLACE, O2 SATS MAINTAINED >95%. TREATED 1X FOR ABD PAIN c TRAMADOL. PT IS RESTING IN BED AT THIS TIME, CALL LT IN REACH. WILL CONT TO MONITOR AND PROVIDE CARE UNTIL PRESUMED BY ONCOMING RN.
--- NOTE | 2018-11-29 14:10 | NUR ---
Pt visit this afternoon. Pt is resting in bed and holding his abdomen intermittently. He reports 4/10 pain in his RUQ and states the pain is constant. Pain worsens after receiving lactulose with the process of emptying his bowels. Instructed Pt this RN will colloberate with others with the management of pain. Pt reports no other concerns at this time. Palliative Care will remain available.
--- NOTE | 2018-11-29 15:44 | NUR ---
Spoke with Pt and discussed details of bowel regimen change. Pt is agreeable. Called and spoke with Dr Ramos and discussed case. Placed order for Sennokot S 1 to 2 tabs BID, discontinued lactulose, discontinued Miralax daily, discontinued colace 200mg BID, ordered miralx daily PRN, and docusate 100mg BID per V/O from Dr Ramos. Ordered prune juice for every breakfast tray. Palliative Care will remain available.
--- NOTE | 2018-11-29 16:06 | NUR ---
PT IS A/OX3,PLEASANT AND COOPERATIVE, THE PT IS UP IND IN HIS ROOM, THE PT BECOMES SEVERLY SOB WITH MINIMAL ACTIVITY, THE PT WAS UP ON THE SIDE OF THE BED T/O THE DAY, THE PT IS ON 2L/MIN O2 @ THIS TIME, THE PT WAS MEDICATED FOR ABD PAIN X1 THIS AM, PALATIVE CARE WAS IN TO CONSULT WITH THE PT, CALL LIGHT IN REACH, WILL CONTINUE TO MONITOR AND ASSESS FOR CHANGES, THE PT REPORTED HAVING A SOFT BM TODAY X2
--- NOTE | 2018-11-30 03:45 | NUR ---
SHIFT SUMMARY NO ACUTE CHANGES TONIGHT. PT IS A&O, INDEPENDENT IN RM. REQUESTS TO BE LEFT ALONE AFTER 9 PM AND CARE TEAM RESPECTS PT WISHES. PT REPORTS DYSPNEA WITH EXERTION, AND INDEPENDENTLY ALTERNATES BETWEEN USING 2L VIA NC AND TRILOGY MACHINE IN RM. TREATED FOR ABD PAIN TO THE RLQ ONCE THIS SHIFT WITH PRN TRAMADOL. NO OTHER CHANGES TO REPORT, WILL CONT TO MONITOR AND PROVIDE CARE UNTIL PRESUMED BY ONCOMING RN.
--- NOTE | 2018-11-30 13:41 | NUR ---
Pt visit this afternoon. Pt is sitting in chair upon arrival and appears to be more dyspneic today as evidenced by work of breathing and increased respiratory rate. Pt reports a tolerable 4/10 pain in his right upper quadrant. He reports the pain was severe earlier in the day and pain is managed with current regimen. Pt reports having a scheduled ultrasound this afternoon and is hopefull in finding answers with cause of pain. Pt is agreeable with maintaing current bowel regimen. Pt reports no other concerns at this time. Palliative Care will remain available.
--- NOTE | 2018-11-30 16:34 | NUR ---
PT IS A/OX3, COOPERATIVE, AGITATED/ IRRITABLE AT TIMES, THE PT IS ON O2@ 2L/MIN VIA NC, THE PT BECOMES VERY SOB WITH MINIMAL ACTIVITY, TODAY THE PT WAS MADE NPO FOR AN ABD US AFTER BREAKFAST, AND BECAME IRRITATED WHEN THE US WAS NOT PERFORMED AT THE TIME HE WAS TOLD THAT IT WOULD BE, THE US WAS PERFORMED AT THIS TIME, THE PT WAS MEDICATED FOR PAIN X1 TODAY, CALL LIGHT IN REACH, SCHEDULED BREATHING TX'S WERE GIVEN
--- NOTE | 2018-12-01 04:51 | NUR ---
SHIFT SUMMARY PATIENT HAD NO ACUTE CHANGES OBSERVED THIS SHIFT. AXOX 3 AND INDEPENDENT IN THE ROOM. VSS/AFEBRILE. REPORTED ABDOMEN PAIN AND RECEIVED TRAMADOL PER EMAR. NO IV ACCESS. ON 2L O2 NC WITH CONTINUOUS PULSE OXIMETRY. SOB W/EXERTION. RT IN FOR SCHEDULE BREATHING TX. TAKES MEDICATION WHOLE WITH WATER. COOPERATIVE WITH CARE. TRILOGY MACHINE USED PRN BY PATIENT. PATIENT REPORTS TO BE LEFT ALONE AFTER 21:00 UNLESS CONTINUOUS PULSE OXIMETRY ALARM STAYS ON. CALL LIGHT IN REACH. BED IN LOWEST POSITION. WILL CONTINUE TO MONITOR UNTIL DAY SHIFT RN ASSUMES CARE.
--- NOTE | 2018-12-01 16:39 | NUR ---
SHIFT SUMMARY NO CHANGES IN ASSESSMENT AT THIS TIME. PT HAD VISITORS THIS SHIFT. RESTING IN BED AT THIS TIME. PT USING 2L O2 CONTINUOUSLY WITH BREATHING TREATMENTS & TRILOGY NON INVASIVE VENTILATOR NEEDED. VSS. WILL CONTINUE TO MONITOR UNTIL TURNOVER IS COMPLETE.
--- NOTE | 2018-12-02 04:40 | NUR ---
NOC SHIFT SUMMARY PT APPEARS IRRITABLE THIS EVENING. WENT TO BED SHORTLY AFTER 2100 AND REITERATED HE DOES NOT WISH TO BE DISTURBED UNTIL HE WAKES IN THE MORNING. EVENING VSS. HE CARR HAVE HIS CONT PULSE OX ON AND IS WEARING HIS TRILOGY MACHINE. SATTING ABOVE 90% ON NURING ROUNDS. HE PRESENTLY APPEARS TO BE SLEEPING AND IN NO ACUTE DISTRESS. NO ACUTE CHANGES NOTED THIS SHIFT. WILL CONTINUE TO MONITOR.
--- NOTE | 2018-12-02 17:04 | NUR ---
SHIFT SUMMARY NO CHANGES IN ASSESSMENT AT THIS TIME. PT MEDICATED FOR PAIN ONCE THIS SHIFT. VSS. PT DENIES NEEDS AT THIS TIME. WILL CONTINUE TO MONITOR UNTIL TURNOVER IS COMPLETE.
--- NOTE | 2018-12-02 20:34 | NUR ---
Theraputic visit with patient. He Was anxious to go outside. Took him outside for fresh air and had normalized conversation.
--- NOTE | 2018-12-03 17:47 | NUR ---
SHIFT SUMMARY NO CHANGES IN ASSESSMENT AT THIS TIME. VSS. PT UP IN ROOM. DENIES NEEDS AT THIS TIME. PT STATES HE IS IN PAIN BUT REFUSES PAIN MEDS TILL NEXT SHIFT. WILL CONTINUE TO MONITOR UNTIL TURNOVER IS COMPLETE.
--- NOTE | 2018-12-04 05:48 | NUR ---
SHIFT SUMMARY NO ACUTE CHANGES TONIGHT. PT ON 1.5 L VIA NC OR TRILOGY MACHINE, SWITCHES BETWEEN THE TWO INDEPENDENTLY. CONT PULSE OX SHOWS O2 SATS >92%. PT REPORTS SOB WITH AMBULATION, INDEPENDENT IN RM. TRAMADOL GIVEN 2X FOR RLQ PAIN. PT IS AWAITING PLACEMENT TO [facility]. PT REQUESTED TO NOT BE BOTHERED OR WOKEN FOR ANY REASON BY ANY STAFF MEMBERS AFTER 2100, UNLESS HE CALLED OTHERWISE. RESTING IN BED AT THIS TIME, CALL LT IN REACH. WILL CONT TO MONITOR AND PROVIDE CARE UNTIL PRESUMED BY ONCOMING RN.
--- NOTE | 2018-12-04 11:00 | NUR ---
Pt visit this AM. Pt reports 5/10 pain in his abdomen. He reports current regimen is managing his pain. Listened as he expresses frustration with not finding answers regarding cause of pain. He reports the pain is most severe immediately after having a bowel movement. Discussed discharge plan notes. Pt expresses concerns regarding discharge plan. He is preferring discharge to a local facility. No other concerns reported at this time. Relayed Pt's concerns to geneva Parson. Palliative Care will remain available.
--- NOTE | 2018-12-04 17:09 | NUR ---
SUMMARY- PT UP INDEPENDANT IN ROOM. ON 1.5 L OF O2 USES TRILOGY INTERMITTANT DURING THE DAY WHEN HE FEELS IT COULD BE HELPFUL. VERY INDEPENDANT AND MOTIVATED, DIRECTS OWN CARE. TOLERATING FOOD AND FLUIDS. LUNGS SEVERELY DIMINISHED. PT STATES HE IS DOING BETTER AND HAS MUCH MORE STRENGTH TODAY. HAS BEEN WORKING ON EXERCISES FROM PT INDEPENDANT AND FAITHFUL ABOUT REGEMINE. STATES PAIN IN RLQ ABD 7/10 DOWN TO 4/10 AFTER TRAMADOL. HAD 2 XL BM'S TODAY.
--- NOTE | 2018-12-05 04:59 | NUR ---
SHIFT SUMMARY NO ACUTE CHANGES THIS EVENING. PT REPORTS FEELING LESS SOB AND HAVING MORE ENERGY. PT HAS BEEN TITRATED TO 1L VIA NC, ALSO USING TRILOGY MACHINE PRN INDEPENDENTLY. PT REQUESTS TO NOT BE BOTHERED OR ANYONE ENTER RM AFTER 2100 UNLESS REQUESTED BY PT. PT WISHES RESPECTED BY STAFF JONIGHT. TREATED 1X FOR RLQ PAIN c PO TRAMADOL, PROVIDES RELIEF. PT RESTING IN BED AT THIS TIME, CALL LT IN REACH/CALL LT APPROP. WILL CONT TO MONITOR AND PROVIDE CARE UNTIL PRESUMED BY ONCOMING RN.
--- NOTE | 2018-12-05 17:28 | NUR ---
SHIFT SUMMARY OX4 INDEPENDENT IN ROOM. LABILE. DROPLET ISO. O2 SATS 94-96% ON 1L NC. CONT BIOX. BASELINE OF 2LNC AT HOME. CHRONIC INSOMNIA. NO IV. LUNG SOUNDS DIMINISHED. MEDICATED FOR RIGHT SIDED ABDOMINAL PAIN. ABDOMINAL CT UNREMARKABLE. AWAITING PLACEMENT IN ADULT [facility]OSTER CARE.
--- NOTE | 2018-12-05 20:11 | NUR ---
PT up indep in room showered and dressed self, oxygen 1 l and cont pulse oxyimetry with sats greater than 92%.
--- NOTE | 2018-12-06 02:43 | NUR ---
Pt continues to self administer oxygen and bipap and monitors oxygen sat via [employer]. He was up to shower and dress and tolerated fair. Continues to CO rt abd pain spasm radiating pain of 6 /10 scale relieved by Ultram 50 mg. End stage COPD, quit smoking 4 years ago. Able to communicate, he likes to be left alone after 845 PM. Adequate oral intake bowel care held, had several bowel movements yesterday. Seeking placement in adult foster fci, said a place near [place] may be available. Stable in end stage COPD. Verbalizes he comes from large family but lacks support system. Discusssing his Fathers diabetes and amputations and his age 69. Cooperative with meds and resp therapies. Support offered.
--- NOTE | 2018-12-06 18:25 | NUR ---
SHIFT SUMMARY. A&OX4, INDEPENDENT IN ROOM. PT C/O ABD PAIN TWICE THIS SHIFT, MANAGED WELL WITH CURRENT ORDERS. CONTINUES WITH 2L O2 NC, MANAGES TRILOGY BIPAP INDEPENDENTLY. LUNGS CLEAR THROUGHOUT ALTHOUGH DIM, PURSED LIP BREATHING. PT REPORTS DYSPNEA WITH EXERTION. DENIES N/V. AWAITING PLACEMENT.
--- NOTE | 2018-12-06 19:32 | NUR ---
PT irritable and angry today with day staff. He had told me last night he is getting mean he has been here too long. At night he insists he not be disturbed from around 830 PM until around 530 AM when he wakes and wants black coffee and breathing treatment. Said he had been in pain but didn't communicate that and expressed anger that he had been purposefully ignored. Agreed he had not attempted to call to request staff presence but thought they should have rounded on him more frequently but he still had sign up on door saying he didn't want disturbed. Refused dinner and alternatives, said he will call for coffee later.
--- NOTE | 2018-12-07 06:40 | NUR ---
pt irritable and blaming dayshift staff of neglecting him. did not use call colmenares to request staff and PT has sign displayed outside room that he doesnt want to be disturbed. encouraged relaxation. Discharge placement pending.
--- NOTE | 2018-12-07 15:44 | NUR ---
pt ambulating in his room very aggitated and wants out of room . offered diversion but states he is ok for now. loud patient across the heidi was upsetting him. will try to get himoutside tomorrow.
--- NOTE | 2018-12-07 17:18 | NUR ---
Therapeutic visit this afternoon. Pt reports his breathing has improved but has tired from walking around the room. Offered to wheel Pt outside for fresh air. Pt accepts offer. Pt and this RN discussed other things than medical issues to allow for a normalized conversation. Discussed weather and trees for approximately 20 minutes. Pt expresses appreciation of outing. Wheeled Pt back to room and helped him out of chair. Pt reports no concerns at this time. Palliative Care will remain available.
--- NOTE | 2018-12-07 19:05 | NUR ---
SHIFT SUMMARY NO ACUTE CONCERNS FROM BILL AT THIS ITMN. HE HAS BEEN PLEASANT ALL DAY.
--- NOTE | 2018-12-07 23:59 | NUR ---
PATIENT REQUESTS THAT NO STAFF ENTER HIS ROOM AFTER 2100 UNTIL HE CALLS IN AM.
--- NOTE | 2018-12-08 07:20 | NUR ---
SHIFT SUMMARY NO ACUTE EVENTS OVERNIGHT. PATIENT REQUESTED THAT STAFF STAY OUT OF ROOM UNTIL HE REQUESTED STAFF. PATIENT INDEPENDENT IN ROOM.
--- NOTE | 2018-12-08 18:23 | NUR ---
SHIFT SUMMARY PATIENT IS PLEASANT, NO ACUTE CONCERNS FROM THE PATIENT. STILL AWAITING PLACEMENT. HE HAS BEEN A VERY COMFORTABLE MAN TODAY.
--- NOTE | 2018-12-09 06:32 | NUR ---
SHIFT SUMMARY PT IS A 58 Y/O MALE, ORIGINALLY ADMITTED FOR COPD EXACERBATION, CURRENTLY AWAITING PLACEMENT. HE IS A&O X 4, AND INDEPENDENT IN THE ROOM. HIS O2 SATS REMAINED STABLE ON 1.5L OF O2. ALL OTHER VITALS STABLE. HE WAS MEDICATED TWICE WITH PRN TRAMADOL FOR GENERAL PAIN, WHICH CONTROLS HIS PAIN WELL. NO COMPLAINTS OF NAUSEA OR ACUTE SOB. PT SLEPT WELL DURING THE NIGHT. NO OTHER ACUTE CHANGES IN PT CONDITION NOTED. WILL CONTINUE TO MONITOR AND TREAT PER EMAR UNTIL HAND OFF TO DAY SHIFT RN.
--- NOTE | 2018-12-09 10:24 | NUR ---
PATIENT STATES THAT HE FEELS LIKE HIS CO2 LEVELS ARE HIGH. HE REPORTS THAT HE IS WHOOZY TODAY AND UNCOMFORTABLE. HE IS ALSO MILDLY MORE IRRITABLE THAN HE HAS BEEN. USING HIS TRILOGY TO SEE IF HE CAN FEEL MORE COMFORTABLE.
--- NOTE | 2018-12-09 20:00 | NUR ---
SHIFT SUMMARY PATIENT HAS NO COMPLAINTS TODAY. ONLY NEEDED ONE DOSE OF TRAMADOL FROM ME. HE DID STATE THAT HE WAS FEELING LIKE IT WAS HARD TO BREATHE TODAY. HE SPENT A LOT OF TIME ON THE TRILOGY MACHINE IN ORDER TO "CORRECT HIS CO2 IMBALANCE". THE PATIENT DID FEEL BETTER THIS AFTERNOON AND HAS HAD NO COMPLAINTS SINCE.
--- NOTE | 2018-12-10 06:43 | NUR ---
SHIFT SUMMARY PT IS A 58 Y/O MALE, ADMITTED FOR COPD EXACERBATION, AND CURRENTLY AWAITING PLACEMENT. HE IS A&O X 4, AND INDEPENDENT IN THE ROOM. AT THE START OF SHIFT, THE PT WAS COMPLAINING THAT THE ROOM WAS "HOT AND STUFFY", AND REPORTED TROUBLE BREATHING. THE PT WAS TAKEN OUTSIDE BY STAFF, AND WHEN THE THERMOSTAT WAS UNABLE TO BE ADJUSTED TO THE PT'S COMFORT, HE WAS MOVED TO ROOM 325. PT WAS MEDICATED ONCE FOR PAIN WITH PRN TRAMADOL, AND REPORTED INCREASED SOB OFF AND ON DURING THE NIGHT. NO COMPLAINTS OF NAUSEA. VITAL SIGNS STABLE. NO OTHER ACUTE CHANGES IN PT CONDITION NOTED. WILL CONTINUE TO MONITOR AND TREAT PER EMAR UNTIL HAND OFF TO DAY SHIFT RN.
[2018-12-10 09:22] LABS: PCO2 Arterial 49.5 mmHg (35-45); PO2 Arterial 78.4 mmHg (80-100)
--- NOTE | 2018-12-10 12:22 | NUR ---
PT WITH INCREASED SOB AT REST THIS AM, SPO2 STILL GREATER THAN 92% ON 2L O2 NC. AT APPROXIMATELY 1200 WHILE ROUNDING ON PT PT REPORTED THAT HIS BREATHING HAD IMPROVED AFTER HE HAD COUGHED UP ONE WHOLE PEA THAT HE REPORTS HE ATE FOR LUNCH OR DINNER YESTERDAY. DR. SAMS NOTIFIED.
--- NOTE | 2018-12-10 19:40 | NUR ---
PT PLEASANT AND COOPERATIVE DURING SHIFT. CONTINUES WITH CHRONIC ABD AND BACK PAIN, MANAGED WELL WITH CURRENT ORDERS. NO INCREASED SOB FROM BASELINE SINCE A PEA WAS COUGHED UP. [place] IN THE AFTERNOON AND EVALUATED BIPAP, IT WAS REPORTED THAT IT WAS FUNCTIONING APPROPRIATELY. NO N/V. AWAITING PLACEMENT.
--- NOTE | 2018-12-11 05:51 | NUR ---
SHIFT SUMMARY: 58 Y/O SLENDER MALE RESTED COMFORTABLY ALL SHIFT, C/O ABD PAIN X 1 RATED 6/10 WITH TRAMADAL 50MG PO GIVEN WITH RELIEF FELT, CONTACT PRECAUTIONS MAINTAINED FOR MRSA, HAPPY AND COOPERATIVE, BED LOW POSITION, CALL LIGHT AT SIDE.
[2018-12-11 05:54] LABS: Albumin, Blood 3.5 g/dL (3.4-5.0); Anion Gap 6 mmol/L (6-16); Blood Urea Nitrogen 14 mg/dL (8-24); Bun/Creatinine Ratio 14.9 (12.0-20.0); CO2, Blood 33 mmol/L (21-32); Calcium, Blood 9.3 mg/dL (8.5-10.1); Chloride, Blood 104 mmol/L (98-108); Creatinine, Blood 0.94 mg/dL (0.60-1.20); Glomerular Filtration Rate >60 (60-); Glucose, Blood 91 mg/dL (70-99); Phosphorus, Blood 4.3 mg/dL (2.5-4.9); Potassium, Blood 4.8 mmol/L (3.5-5.5); Sodium, Blood 143 mmol/L (136-145)
--- NOTE | 2018-12-11 06:48 | NUR ---
PATIENT INDEPENDENTLY WENT TO THE BATHROOM THROUGHOUT THE NIGHT. PATIENT IS CURRENTLY SITTING ON EDGE OF BED "NOT FEELING GOOD". RN NOTIFIED OF WHAT PATIENT SAID. CALL LIGHT IN REACH.
--- NOTE | 2018-12-11 18:29 | NUR ---
SHIFT SUMMARY. A&OX4, INDEPENDENT IN THE ROOM. PT DENIED THE NEED FOR PAIN MEDICATION. CONTINUES WITH CHRONIC SOB WITH EXERTION. NO N/V.
--- NOTE | 2018-12-12 04:06 | NUR ---
SHIFT SUMMARY: 58 Y/O SLENDER MALE RESTED COMFORTABLY IN BED ALL SHIFT, C/O ONCE ABD PAIN RATED 6/10 WITH TRAMADOL 50MG PO GIVEN WITH RELIEF FELT, INCREASED DYSPNEA NOTED WITH VERY SLIGHT ACTIVITY WITH VOICE IN LOW [place]OT[place] AT TIMES, DENIES NAUSEA, DROPLET CONTACT PRECAUTIONS MAINTAINED, REFUSING TAKE ALL STOOL SOFTENERS VOICED HE DOES NOT REQUIRE THEM, BED LOW POSITION, CALL LIGHT AT SIDE.
--- NOTE | 2018-12-12 17:28 | NUR ---
SUMMARY PT RESTING IN BED QUIETLY, WAKES EASILY, INDEPENDENT IN THE ROOM, PT IS PLEASANT AND COOPERATIVE WITH CARE, PT ABLE TO TAKE HIMSELF ON AND OFF THE TRILOGY BIPAP MACHINE INDEPENDENTLY, PT MED PER EMAR FOR PAIN, VSS, NO ACUTE CHANGES, WILL CONT TO MONITOR
--- NOTE | 2018-12-13 05:13 | NUR ---
SHIFT SUMMARY: NO ACUTE CHANGES THIS SHIFT. PT RESTING COMFORTABLY IN BED. INDEPENDENT IN ROOM. VOIDING WELL AND СЕРГЕЙ PO. DENIES N/V. GIVEN ULTRAM PER EMAR FOR COMPLAINTS OF RLQ PAIN. PT APPEARS ANXIOUS/RESTLESS AT TIMES. HR TACHY RANGING FROM 100-120. HR IN 80'S WHILE SLEEPING. PT USING TRILOGY THROUGHOUT NIGHT.
--- NOTE | 2018-12-13 17:15 | NUR ---
SUMMARY PT RESTING QUIETLY IN BED, WAKES EASILY, HAS BEEN INDEPENDENT IN THE ROOM, REMAINS ON 2L NC, PT REPORTS GETTING LITTLE SLEEP LAST NIGHT, DOES NOT WANT TO BE DISTURBED AT NIGHT, VSS, NO ACUTE CHANGES, WILL CONT TO MONITOR
--- NOTE | 2018-12-14 16:31 | NUR ---
PT WAS UP IN CHAIR THIS FOR BF. O2 VIA N/C @ 1.5L. HE STATE SHORTNESS OF BREATH MILD/BASELINE @ REST, STATE INCREASES W EXERTION. STATE CONTINUING MID ABD PAIN/DISCOMFORT, STATE HAD ULTRAM DURING NOC SHIFT APPROX 0500. STATE AWARE HE CAN HAVE PRN Q6HRS HOWEVER WILL NOT TAKE ANOTHER UNTIL BEDTIME. STATE DISATISFACTION THAT DR'S HAVE NOT BEEN ABLE TO FIND SOURCE. HE IS IRRITABLE, CLINE THIS AM, SEEMS DEPRESSED, ATTEMPTS TO ENCOURAGE/REASSURE/COMFORT UNSUCCESSFUL. AFTER LUNCH PT BECOME INCREASINGLY IRRITABLE, ANGRY. STATE NO ONE HAS BEEN IN HIS ROOM ALL DAY. ATTEMPTS TO RECONCILE W PT UNSUCCESSFUL. HE AGREE TO SPEAK W PALLIATIVE CARE RN HAFSA Frias. SHE WAS ABLE TO TAKE HIM OUT VIA W/C FOR SUNSHINE, FRESH AIR. SHE STATE HE CONTINUES IRRITABLE/GROUCHY. ORDERS PLACED FOR MRSA CLEARANCE.
--- NOTE | 2018-12-14 16:52 | NUR ---
Called to see patient he is having a bad day. He was willing to go outside. We sat quietly. He did not engage today kept checking his phone and short with me when he spoke. He recieved a phone call that was very upsetting and wanted to go back. He is more anxious and suspicious today. Offered to come back again he was open to another visit. Palliative care will continue to spend theraputic time.
--- NOTE | 2018-12-14 16:56 | NUR ---
ATTEMPT TO COLLECT MRSA CLEARANCE SPECIMENS UNSUCCESSFUL. PT DECLINES @ THIS TIME, CONTINUES UPSET/IRRITABLE REQUESTS TO NOT TO BE DISTURBED, REQUESTS LEAVE ROOM. INSURANCE CLAIMS CLERK NOTIFIED OF PT DISATISFACTION.
--- NOTE | 2018-12-14 16:57 | NUR ---
requested they swab patient to see if they can clear him from the MRSA. suggest the neuronitin be changed to TID. Suggest stopping the lovenox.
--- NOTE | 2018-12-15 04:09 | NUR ---
SHIFT SUMMARY PT USING HIS BIPAP MACHINE WITHOUT ISSUE. PT REQUESTED NOT TO BE DISTURBED UNLESS HE REQUESTS HELP. PT IS AGITATED AND INPATIENT. PT HAD SOME NAUSEA AND IV ZOFRAN HAD TO BE CHANGED TO PO. PT BECOMES SOB EASILY WITH ANY EXERTION. PT HAD NO COMPLAINTS OR ISSUES. PT STATES HE WILL CALL IF HE NEEDS HELP.
--- NOTE | 2018-12-15 19:15 | NUR ---
SHIFT SUMMARY: NO ACUTE CHANGES TO REPORT THIS SHIFT. PT A&O; IRRITABLE; REFUSING SOME CARE. NO C/O PAIN THIS SHIFT. PT USES TRILOGY BIPAP-NO LOCAL SNF TRAINED IN USE; PT MEDICALLY STABLE FOR DISCHARGE. REPORT GIVEN TO ONCOMING RN.
--- NOTE | 2018-12-16 06:12 | NUR ---
SHIFT SUMMARY NO ACUTE EVENTS OVERNIGHT.
[2018-12-16 06:13] LABS: BASOPHILS ABSOLUTE AUTO 0.11 K/mm3 (0.00-0.23); BASOPHILS PERCENT AUTO 1 % (0-2); EOSINOPHILS PERCENT AUTO 5 % (0-6); Hematocrit 36.9 % (37.0-53.0); Hemoglobin 12.2 g/dL (13.5-17.5); IMMATURE GRAN ABSOLUTE AUTO 0.04 K/mm3 (0.00-0.10); IMMATURE GRAN PERCENT AUTO 1 % (0-1); LYMPHOCYTES ABSOLUTE AUTO 2.64 K/mm3 (0.84-5.20); LYMPHOCYTES PERCENT AUTO 32 % (21-46); MONOCYTES ABSOLUTE AUTO 1.03 K/mm3 (0.16-1.47); MONOCYTES PERCENT AUTO 13 % (4-13); Mean Corpuscular HGB 30.8 pg (26.0-34.0); Mean Corpuscular HGB Conc 33.1 g/dL (31.5-36.5); Mean Corpuscular Volume 93 fL (80-100); Mean Platelet Volume 8.8 fL (9.1-12.4); NEUTROPHILS ABSOLUTE AUTO 4.02 K/mm3 (1.96-9.15); NEUTROPHILS PERCENT AUTO 49 % (41-73); Platelet Count 446 K/mm3 (150-400); RDW Coefficient Variation 13.8 % (11.7-14.2); RDW Standard Deviation 47.7 fL (35.1-46.3); Red Blood Cell Count 3.96 M/mm3 (4.30-5.90); White Blood Cell Count 8.24 K/mm3 (4.00-11.30)
[2018-12-16 06:40] LABS: Anion Gap 4 mmol/L (6-16); Blood Urea Nitrogen 18 mg/dL (8-24); Bun/Creatinine Ratio 20.2 (12.0-20.0); CO2, Blood 35 mmol/L (21-32); Calcium, Blood 9.2 mg/dL (8.5-10.1); Chloride, Blood 103 mmol/L (98-108); Creatinine, Blood 0.89 mg/dL (0.60-1.20); Glomerular Filtration Rate >60 (60-); Glucose, Blood 86 mg/dL (70-99); Potassium, Blood 4.5 mmol/L (3.5-5.5); Sodium, Blood 142 mmol/L (136-145)
--- NOTE | 2018-12-16 19:09 | NUR ---
SHIFT SUMMARY: NO ACUTE CHANGES TO REPORT THIS SHIFT. PT A&O; IRRITABLE; REFUSING MUCH NURSING CARE. MEDICATED FOR PAIN PER EMAR. MEDICALLY STABLE FOR D/C; UNSAFE TO RETURN HOME ALONE; AWAITING PLACEMENT IN SNF. REPORT GIVEN TO ONCOMING RN.
--- NOTE | 2018-12-16 21:52 | NUR ---
PT REQUESTED TO NOT BE DISTURBED IN ANY FORM INCLUDING NURSING ROUNDING UNTIL HE WAKES UP AND CALLS IN THE MORNING
--- NOTE | 2018-12-16 22:01 | NUR ---
@2049 PT. A&O X4. INDEP IN ROOM. PT. IS ON 2L OF 02 DURING THE DAY AND BIPAP AT BEDTIME, WHICH HE MANAGES HIMSELF. STATES DOES NOT WANT TO BE BOTHERED AFTER 2099. PT. REFUSING VITALS, NURSE ROUNDING, OR ANY TYPE OF CARE AFTER 2099 TONIGHT. REQUESTED ROOM DOOR TO BE CLOSED AND KEPT CLOSED T/O THE NIGHT. PT. STATED WOULD BE VERY UPSET IF ANYONE CAME INTO HIS ROOM PAST THAT TIME. INSTURCTED PT. TO CALL/NOTIFY NURSING STAFF IF NEEDS ASSISTANCE. PT. VERBALIZED UNDERSTANDING. CALL LIGHT WITHIN REACH AND SIDE RAILS UP X2.
--- NOTE | 2018-12-17 04:38 | NUR ---
SHIFT SUMMARY- PT. A&O, INDEP IN ROOM. REQUESTED NOT TO BE DISTURBED T/O THE NIGHT, BUT NOW AWAKE. PER PT. RESTED WELL ON/OFF T/O THE NIGHT. PT. ON 2L NC. SITTING UP ON THE SIDE OF THE BED, NO APPARENT DISTRESS NOTED. DENIES NEEDS AT THIS TIME. CALL LIGHT WITHIN REACH AND SIDE RAILS UP X2. WILL CONT TO MONITOR.
--- NOTE | 2018-12-17 09:15 | NUR ---
PT QUIET. RESERVED. ASKED IF OKAY LAST NITE DENIES ISSUES. SOMEWHAT IRRITABLE. ASKED IF CAN DO ANYTHING TO ASSIST. DENIES. H/R REG, NO MURMER NOTED. NO TLE. LUNGS CLEAR, BUT DIM T/O. ON 1.5L O2. BT X4 LAST BM TODAY. STATES NORMAL. VOIDS INDEPENDANT TO BATHROOM. DENIES SKIN ISSUES. BED IN LOW POSITION, CALL LITE IN REACH, CALLS APPRP-
--- NOTE | 2018-12-17 16:08 | NUR ---
PT PLEASANT TODAY; PRESENTS SOMEWHAT IRRITABLE, BUT THEN EASES OFF. C/O PAIN TODAY. MEDICATED TO PT SATISFACTION. NO OTHER CONCERNS AT THIS TIME. BED IN LOW POSITION, CALL LITE IN REACH, CALLS APPRP
--- NOTE | 2018-12-17 23:04 | NUR ---
PT. HAS REQUESTED NOT BE DISTURBED UNTIL THE AM WHEN HE WAKES UP. PT. IRRITABLE AND ANGRY. INSTRUCTED PT. TO NOTIFY NURSING STAFF FOR ANY FURTHER NEEDS, PT. VERBALIZED UNDERSTANDING. CALL LIGHT WITHIN REACH AND SIDE RAILS UP X2. WILL CONT TO MONITOR.
--- NOTE | 2018-12-18 04:39 | NUR ---
SHIFT SUMMARY- NO ACUTE EVENTS OVERNIGHT. PT. REQUESTED TO NOT BE DISTURBED T/O THE NIGHT.
--- NOTE | 2018-12-18 18:47 | NUR ---
SHIFT SUMMARY JANUSZ WAS PLEASANT AND COOPERATIVE THIS SHIFT. HE USED HIS BIPAP PERIODICALLY, THEN ALTERNATED WITH 2L NC. RECEIVED TRAMADOL ONCE FOR RLQ ABD PAIN TO GOOD EFFECT. INDEPENDENT TO BR. CALL LIGHT IN REACH, ERIN
--- NOTE | 2018-12-19 04:24 | NUR ---
SHIFT SUMMARY- PT. SLEPT WELL T/O THE NIGHT. PLEASANT THIS EVENING. C/O RLQ PAIN, PAIN MED GIVEN PER EMAR. REMAINS ON 2L NC AND TRILOGY BIPAP @HS. VSS. PT. STATED CONCERN HEELS FEELING SPONGY. APPLIED HEEL PROTECTOR TO FEET BILATERALLY. PT. DENIES ANY FURTHER NEEDS AT TIME. CONTINUES TO WAIT FOR PLACEMENT. CALL LIGHT WITHIN REACH AND SIDE RAILS UP X2. WILL CONT TO MONITOR.
--- NOTE | 2018-12-19 17:17 | NUR ---
SUMMARY PT AWAKE IN BED WATCHING TV, PT HAS BEEN INDPENDENT IN THE ROOM, COOPERATIVE WITH CARE, MED PER EMAR FOR PAIN, NO COMPLAINTS, VSS, WILL CONT TO MONITOR
--- NOTE | 2018-12-20 04:00 | NUR ---
NOC SHIFT SUMMARY PT TREATED FOR ONGOING ABD PAIN PER EMAR. HE WENT TO SLEEP SHORTLY AFTER 1999 THIS NIGHT. HE IS AAOX4, ON 2LNC, TRILOGY MACHINE AT NIGHT. IRRITABLE THIS NIGHT. AWOKE DURING NIGHT ROUNDING AND YELLED FOR THIS RN TO, "GET OUT"! WHILE IRRITABLE HE APPEARS IN NO ACUTE DISTRESS. NO ACUTE CHANGES THIS NIGHT. WILL CONTINUE TO MONITOR.
--- NOTE | 2018-12-20 10:53 | NUR ---
Spiritual care visit attempted. I entered patient room and patient requested that I would not visit. I promptly left. I will continue to remain available to patient and family.
--- NOTE | 2018-12-20 16:44 | NUR ---
SHIFT SUMMARY PT STATES HE HAS ABDOMINAL PAIN CHRONICALLY. 2 LPM O2, TRILOGY DEVICE AT NIGHT. NO IV ACCESS. AWAITING PLACEMENT - THIS IS COMPLICATED DUE TO THE TRILOGY DEVICE. SPUTUM CULTURE STILL NEEDED. HE IS A&O X4, INDEPENDENT IN THE ROOM. DROPLET/CONTACT PRECAUTIONS FOR MRSA IN NARES & SPUTUM. I TREATED HIM FOR ABDOMINAL PAIN ONE TIME DURING THIS SHIFT SO FAR.
--- NOTE | 2018-12-21 04:59 | NUR ---
SHIFT SUMMARY PT HAD NO ISSUES OR COMPLAINTS. PT WISHED NOT TO BE DISTURBED AFTER 2100 HRS. PT STATED HE WILL USE HIS CALL LIGHT IN AM WHEN HE IS READY TO BE SEEN. PT HAS CALL LIGHT.
--- NOTE | 2018-12-21 16:21 | NUR ---
multiple visits. pt complains fo being slightly more short of breath today. he is also concerned of increasing tremeor in hands and harder to control anexiety. reviewd medications he does not want brandi adjustments at this time. He does not know much about computers or using one. Palliative care loaned him a donated lap top we obtained for diversion. Reviewed how to use google and encouraged him to have the staff help him with his computer skills.
--- NOTE | 2018-12-21 16:21 | NUR ---
SHIFT SUMMARY STILL AWAITING PLACEMENT IN A SNF. TRILOGY DEVICE IS THE COMPLICATING ISSUE WITH PLACEMENT. NO SPUTUM SAMPLE RETRIEVED YET. I HAVE MEDICATED THIS PT TWICE DURING SHIFT FOR ABDOMINAL PAIN. PALLIATIVE CARE LOANED THE PT A LAPTOP TO USE WHILE HE IS HERE. NO OTHER CHANGES.
--- NOTE | 2018-12-22 04:48 | NUR ---
SHIFT SUMMARY NO ACUTE CHANGES THIS SHIFT. PT REQUESTED ONCE NIGHT TIME MEDICATIONS WERE GIVEN NOT TO BE WOKEN UP THROUGHOUT THE NIGHT. ULTRAM 50 MG GIVEN WITH NIGHT TIME MEDICATIONS. PT REPORTS CHRONIC PAIN IN R LOWER ABD. AFTER MEDICATED PT SHUT HIS DOOR AND REMAINED UNINTERRUPTED UNTIL HE WOKE APPROX 0430 THIS AM. ALLOWED VITALS AT THIS TIME AND THEN WENT BACK TO BED. VSS. WILL CONTINUE TO MONITOR.
--- NOTE | 2018-12-22 17:41 | NUR ---
SHIFT SUMMARY: PT IS A/O X 4 WITH NO C/O PAIN. PT TOOK MORNING MEDS WITH NO ISSUES AND CALLS FOR HELP WHEN NEEDED. PT CONTINUES WITH RT TX AND IS UP AND IND IN ROOM.
--- NOTE | 2018-12-22 21:38 | NUR ---
PT REFUSES TO WOKEN AND PREFERS NOT TO BE ROUNDED ON AFTER 2100. HE KNOWS TO CALL FOR ASSIST AND IS STABLE AWAITING PLACEMENT. CALL IN REACH AND INDEPENDENT IN ROOM.
--- NOTE | 2018-12-23 03:51 | NUR ---
SUMMARY: PT A/OX4, INDEPENDENT IN ROOM AND SPECIFIES NEEDS. HE BEGAN SHIFT FRUSTRATED AND IRRITABLE BUT CALMED W/COMMUNICATION RE:A SET PLAN FOR THE EVENING. PT DOES NOT LIKE TO BE AWOKEN AFTER 2100 AND PREFERS TO LIMIT ROUNDING. MEDS WERE RECIEVED PER EMAR AND X1 TRAMADOL PRN WAS PROVIDED FOR MODERATE RELIEF OF R.LOWER ABDO PAIN. HE REFUSED BOWEL MEDS D/T HAVING FREQ BM'S ON DAY SHIFT BUT DENIED HAVING DIARRHEA. PT REMAINS ON 1.5L O2 VIA VISION BIPAP AND RT MANAGING MEDS/TX'S. NO ACUTE CHANGES, VSS/AFEBRILE. PT AWAITS SNF PLACEMENT. WCTM AND REPORT TO DAY RN.
--- NOTE | 2018-12-23 17:28 | NUR ---
SHIFT SUMMARY: PT HAS BEEN A/O X 4 AT [facility] AND IND IN ROOM. PT TOOK MORNING MEDS ORDERED WITH NO ISSUES. PT IS GENERALLY NOT PLEASANT AND WAS UPSET THIS MORNING ABOUT HIS FOOD MENU STATING HE DIDNT KNOW HOW THE KITCHEN GOT HIS FILLED OUT MENU BECAUSE IT WASNT FROM HIM. THE KITCHEN CALLED AND CONFIRMED THAT THEY DID INFACT RECEIVE HIS MENU. PT WAS OFFERED A NEW MENU TO FILL OUT AND HE DECLINED. PT CONTINUES TO ASK TO NOT BE DISTURBED AND HAS HIS DOOR SHUT MOST OF SHIFT. HE IS ABLE TO MAKE HIS NEEDS KNOWN AND CALLS FOR HELP WHEN NEEDED.
--- NOTE | 2018-12-24 04:15 | NUR ---
SUMMARY: PT A/OX4, INDEPENDENT AND CALLS FOR ASSIST PRN. HE CAN BE IRRITABLE AT TIMES BUT WAS PLEANSANT/COOPERATIVE W/RN THIS SHIFT. SNACKS/COFFEE PROVIDED PER REQUEST. TRAZADONE PRN X1 WAS RECEIVED FOR TOLERABLE RELIEF OF PERSISTENT RLQ ABDO PAIN. HE REQUESTS TO BE LEFT ALONE AFTER 2100 AND PREFERS LIMITED STAFF ROUNDING. PT IS MEDICALLY STABLE AND AWAITING SNF PLACEMENT BUT REMAINS ON VISION BIPAP W/1.5L O2 BLEED IN AND CONT BIOX INTACT. RT PROVIDED BX MEDS. PT REFUSES SCD'S. NO ACUTE CHANGES AND VSS/AFEBRILE BUT PT SLIGHTLY HTN AT START OF SHIFT D/T BEING "AGGITATED W/NOISE IN HALLS DURING DAY". REASSURANCE PROVIDED THAT NOISE WOULD BE DOWN DURING NIGHT AND PT CALMED W/EXPLANATION. HE HAS SLEPT MAJORITY OF SHIFT W/O COMPLAINTS. WCTM AND REPORT TO DAY RN.
--- NOTE | 2018-12-24 19:40 | NUR ---
DISCHARGE SUMMARY BILL WAS PLEASANT AND CALM AND COOPERATIVE THIS SHIFT. COMPLAINED OF PAIN AND GOT TRAMADOL X2 TO GOOD EFFECT FOR ABDOMINAL PAIN. INDEPENDNET IN ROOM. 1.5L NC AND THE TRILOGY PRN. USED BR, TOOK MEDS PRESCRIBED. CALL LIGHT IN REACH.
--- NOTE | 2018-12-25 03:42 | NUR ---
12/25/18 0330 PT HAS SIGN ON HIS DOOR REQUESTING NOT TO BE AWAKENED AFTER 9 PM UNTIL HE WAKES UP HIMSELF. HE IS ALERT AND STABLE. STAFF WILL ACCOMMODATE HIS REQUEST FOR NOW. HE SETS UP HIS RESP. EQUIPMENT HIMSELF.
--- NOTE | 2018-12-25 18:28 | NUR ---
theraputic time with patient he continues to have anexiety. Review how to use table and search google. He is worried about the future and his needs but much more interactive today.
--- NOTE | 2018-12-25 19:33 | NUR ---
NO ACUTE CHANGES, STILL WAITING FOR PLACEMENT.
--- NOTE | 2018-12-26 08:14 | NUR ---
12/26/18 0600 PT CONTINUES TO SLEEP WELL. UNEVENTFUL NIGHT.
--- NOTE | 2018-12-26 11:26 | NUR ---
HE HAS BEEN IN A GOOD MOOD THIS MORNING. HE HAS EXERCISED IN HIS ROOM HIS BREATHING PERMITS. HE REFUSES LOVENOX SHOTS BECAUSE HE FEELS HE MAKES HIMSELF GET ENOUGH EXERCISE EVERY DAY. O2 ON 1.5L/MIN. TRAMADOL WAS EFFECTIVE THIS MORNING FOR SOME ABD PAIN.
--- NOTE | 2018-12-26 12:57 | NUR ---
HE IS SITTING IN A CHAIR BROWSING ON HIS COMPUTER. DENIES ANY NEEDS RIGHT NOW.
--- NOTE | 2018-12-26 18:37 | NUR ---
HE HAS VISITORS AT THIS TIME. HE DENIES ANY NEEDS. O2 CONTINUES. HE WORE HIS TRILOGY IN THE MIDDLE OF THE DAY FOR AWHILE WHILE HE WAS DOING HIS SODUKO PUZZLES. PULMONARY CONSULT CALLED FOR TOMORROW.
--- NOTE | 2018-12-27 06:21 | NUR ---
SHIFT SUMMARY PT IS A 58 Y/O MALE, ADMITTED FOR COPD EXACERBATION AND CURRENTLY AWAITING PLACEMENT. HE IS A&O X 4, AND INDEPENDENT IN THE ROOM. PT WAS MEDICATED ONCE FOR CHRONIC ABD PAIN AT BEDTIME. HE REPORTED PAIN THIS AM, BUT DECIDED TO WAIT ON RECEIVING PAIN MEDS. HE ALSO REPORTED INTERMITTENT SOB, AND RECEIVED BREATHING TX X 2 IN ADDITION TO HIS TRILOGY AND BASELINE 2L OF O2. NO COMPLAINTS OF NAUSEA. VITAL SIGNS STABLE. NO OTHER ACUTE CHANGES IN PT CONDITION NOTED. WILL CONTINUE TO MONITOR AND TREAT PER EMAR UNTIL HAND OFF TO DAY SHIFT RN.
--- NOTE | 2018-12-27 12:46 | NUR ---
HE HAS HAD AN UNEVENTFUL MORNING EXCEPT THAT WAS HERE TO CONSULT ON HIM. I DO NOT KNOW THE OUTCOME OF THAT CONVERSATION. THE RESP.THERAPIST SPOKE VERY POSITIVELY TO BILL ABOUT BEFORE HIS ARRIVAL. CANNULA STILL 1.5L.
--- NOTE | 2018-12-27 13:49 | NUR ---
Patient is sitting on a chair and alert. Patient tells me he is frustrated because it has been 2 months in the hospital. Patient says that he feels like the hospital staff is doing what they can but because of the breathing equipment that he requires he has led to rejection after rejections for his placement. As we were talking he received a phone call and excused me to go so he could talk on the phone. I will continue to remain available to patient and family.
--- NOTE | 2018-12-27 16:44 | NUR ---
pt resting review of notes and review of plan of pulmonary assessemnt with care assistant.
--- NOTE | 2018-12-27 18:14 | NUR ---
HE IS SITTING ON THE SIDE OF THE BED ON HIS COMPUTER. HE HAS ASKED FOR A CUP OF COFFEE. HE EATS 100% OF HIS MEALS. I BELIEVE HE SAID NO TO TRYING THE BIPAP MACHINE. HE ONLY WANTS THE TRILOGY. NO CHANGES TODAY.
--- NOTE | 2018-12-28 04:15 | NUR ---
SHIFT SUMMARY PT IS ALERT, ORIENTED, AND INDEPENDENT. PT REFUSED ALL INTERVENTIONS AFTER 2100, AND STATED HE WOULD LET STAFF KNOW WHEN HE WOKE UP AND TO NOT BE DISTURBED IN THE MEAN TIME. PAIN MEDICATION GIVEN ORDERED. NO COMPLAINTS OF SOB MADE THIS SHIFT. WILL CONITNUE TO MONITOR.
--- NOTE | 2018-12-28 19:02 | NUR ---
SHIFT SUMMARY: NO ACUTE CHANGES TO REPORT THIS SHIFT. PT A&O; CALM AND COOPERATIVE WITH CARE. MEDICATED FOR PAIN PER EMAR. PT INDEPENDENT IN ROOM. AWAITING PLACEMENT. REPORT GIVEN TO ONCOMING RN.
--- NOTE | 2018-12-29 05:06 | NUR ---
SHIFT SUMMARY NO CLINICAL CHANGE IN PT STATUS. PT RECIEVED MEDS PER EMAR. PT REMAINS ALERT, ORIENTED, INDEPENDENT. VSS. NO COMPLAINTS FROM PT AT THIS TIME. WILL CONTINUE TO MONITOR.
--- NOTE | 2018-12-29 19:19 | NUR ---
SHIFT SUMMARY: NO ACUTE CHANGES TO REPORT THIS SHIFT. PT A&O; CALM AND COOEPRATIVE WITH CARE; INDEPENDENT IN ROOM. PT USES TRILOGY BIPAP AT NOC; AWAITING PLACEMENT. REPORT GIVEN TO ONCOMING RN.
--- NOTE | 2018-12-30 02:52 | NUR ---
SHIFT SUMMARY PT HAD NO CLINICAL CHANGE DURING THE SHIFT. AFTER NIGHTTIME MEDS WERE GIVEN, PT REFUSED CARE UNTIL HE WOKE UP IN THE MORNING AND ASKED NOT TO BE DISTURBED. NO OTHER COMPLAINTS FROM PT AT THIS TIME. WILL CONTINUE TO MONITOR.
--- NOTE | 2018-12-30 19:36 | NUR ---
SHIFT SUMMARY: NO ACUTE CHANGES TO REPORT THIS SHIFT. PT A&O; CALM AND COOPERATIVE WITH CARE. MEDICATED FOR ABD PAIN PER EMAR. PT USES TRILOGY BIPAP PRN. PT MEDICALLY STABLE FOR D/C; AWAITING PLACEMENT. REPORT GIVEN TO ONCOMING RN.
--- NOTE | 2018-12-31 06:19 | NUR ---
SHIFT SUMMARY LYING IN SEMI FOWLERS WITH EYES OPEN WHILE WATCHING TV. HAS HAD A GOOD NIGHT. DENIES PAIN, DISCOMFORT, OR FURTHER NEEDS AT THIS TIME. SAFETY MEASURES IN PLACE. WILL GIVE HAND OFF TO ONCOMING SHIFT USING SBAR.
--- NOTE | 2018-12-31 13:01 | NUR ---
PATIENT IS ALERT AND ORIENTED. HE IS HOPING TO BE DISCHARGED TO [facility] TODAY IF [facility] CAN DELIVER A BED. NO COMPLAINTS. WEARS HIS O2 VIA NC INDEPENDENTLY AND SWITCHES TO HIS BIPAP PRN. WILL CONTINUE TO MONITOR.
--- NOTE | 2018-12-31 13:45 | NUR ---
Clinical Visit: Pt is very happy to leave the hospital today. He reports that he has been feeling trapped in his room for the last 2 months. Pt reports 0/10 pain, does state that he is short of breath. He is able to say about 5 words at a time, reports that this is normal when he is up moving around or if he is carrying on a conversation. Mother is at bedside, all seem to be in a good mood. Collected palliative care laptop, which was loaned to patient a short time ago for distraction. No other concerns, pt is very grateful for the use of the laptop. Will remain available. Pt high risk for readmission due to respiratory status.
--- NOTE | 2018-12-31 17:58 | NUR ---
PATIENT IS ALERT AND ORIENTED AND COOPERATIVE WITH CARE. HE COMPLAINED OF ABDOMINAL PAIN THIS MORNING, TREATED PER EMAR. WAS HOPING TO DISCHARGE TODAY BUT THE NEW PLAN IS FOR HIM TO GO TO [facility] TOMORROW ONCE THE BED IS AVAILABLE. WILL CONTINUE TO MONITOR.
--- NOTE | 2019-01-01 05:23 | NUR ---
FLOTATION TENDER SUMMARY NO ACUTE CHANGES THIS SHIFT. PT AAOX4 AND INDEPENDENT IN ROOM. TREATED FOR PAIN X1 WITH TRAMADOL. NO OTHER COMPLAINTS THROUGH THE NIGHT. PT POSSIBLE DC TO [facility] LAT[facility] TODAY PENDING DELIVERY OF HIS BED BY MEDICAL SUPPLY. VSS, WILL CONTINUE TO MONITOR.
[2019-01-01] MEDS ORDERED: ACET325 PO (11:07)
[2019-01-01] MEDS ORDERED: FAMO20 PO (11:08)
[2019-01-01] MEDS ORDERED: DOCU100 PO (11:08)
[2019-01-01] MEDS ORDERED: Senna-Docusate1 EACH PO (11:08)
[2019-01-01] MEDS ORDERED: GABA100 PO (11:09)
[2019-01-01] MEDS ORDERED: GUAI600T33 PO (11:09)
[2019-01-01] MEDS ORDERED: ONDA4 PO (11:10)
[2019-01-01] MEDS ORDERED: MIRALAX17 GM PO (11:10)
[2019-01-01] MEDS ORDERED: TRAZ100 PO (11:11)
[2019-01-01] MEDS ORDERED: Prednisone10 MG PO (11:11)
--- NOTE | 2019-01-01 11:34 | NUR ---
REPORT CALLED IN TO ANDREI CHAPIN AT [facility].
--- NOTE | 2019-01-01 12:14 | NUR ---
PATIENT DISCHARGED AT 12:15 ON 01/01/2018. [facility] TRANSPORTING THE PATIENT TO [facility].
== END 2019-01-01 12:10 | disposition home or self-care (01) | DRG 189 ==
LOC: ER 11:42 → MEDS 16:52 → ERHOLD 16:52 → PCU 21:34 → MEDS 11-08 17:10
PROVIDERS: Emergency Medicine; Internal Medicine; ADMIT Internal Medicine
PROC: 5A09357 Assistance with Respiratory Ventilation, Less than 24 Consecutive Hours, Continuous Positive Airway Pressure (ICD-10-PCS; principal; 2018-11-05)
DX: J96.22 Acute and chronic respiratory failure with hypercapnia (principal); E43 Unspecified severe protein-calorie malnutrition; B37.0 Candidal stomatitis; R64 Cachexia; Z99.81 Dependence on supplemental oxygen; J96.21 Acute and chronic respiratory failure with hypoxia; K21.9 Gastro-esophageal reflux disease without esophagitis; N40.0 Benign prostatic hyperplasia without lower urinary tract symptoms; G47.00 Insomnia, unspecified; Z87.891 Personal history of nicotine dependence; Z85.828 Personal history of other malignant neoplasm of skin; Z66 Do not resuscitate; G62.9 Polyneuropathy, unspecified; D72.829 Elevated white blood cell count, unspecified; F41.9 Anxiety disorder, unspecified; R45.4 Irritability and anger; K59.09 Other constipation; Z68.22 Body mass index [BMI] 22.0-22.9, adult; J43.9 Emphysema, unspecified
CPT/HCPCS: 36415; 36600; 71046; 74177; 76705; 80048; 80053; 80069; 81003; 82607; 82746; 82803; 83690; 83735; 83880; 84145; 84484; 85025; 85027; 87081; 93005; 93010; 93306; 94640; 94660; 94664; 94760; 94761; 94762; 96374; 97110; 97161; 97165; 97168; 97530; 97535; 98960; 99285-25; A9270; A9270-GY; C9113; J1650; J2405; J2920; J2930; J3010; J7512; Q9967

== ENCOUNTER 2019-01-07 15:17 | Emergency (ER) | payer OTHER ==
[~2019-01-07] VITALS: Ht 175.3 cm; Wt 53.1 kg
[~2019-01-07 15:17] MED LIST changes: +GABA100 PO; +MIRALAX17 GM PO; +ONDA4 PO; +Prednisone10 MG PO; +Senna-Docusate1 EACH PO; +TRAZ100 PO
[2019-01-07] MEDS ORDERED: Milk Of Ma400 MG/5 M PO (15:41)
[2019-01-07] MEDS ORDERED: LORA.5 PO (15:43)
[2019-01-07] MEDS ORDERED: ALBU90OI INH (15:47)
[2019-01-07] MEDS ORDERED: WIXELA 250-501 EACH INH (15:48)
[2019-01-07] MEDS ORDERED: TAMS.4ER PO (15:48)
[2019-01-07 15:49] LABS: BASOPHILS ABSOLUTE AUTO 0.04 K/mm3 (0.00-0.23); BASOPHILS PERCENT AUTO 0 % (0-2); EOSINOPHILS ABSOLUTE AUTO 0.08 K/mm3 (0.00-0.68); EOSINOPHILS PERCENT AUTO 1 % (0-6); Hematocrit 40.3 % (37.0-53.0); Hemoglobin 13.4 g/dL (13.5-17.5); IMMATURE GRAN ABSOLUTE AUTO 0.04 K/mm3 (0.00-0.10); IMMATURE GRAN PERCENT AUTO 0 % (0-1); LYMPHOCYTES ABSOLUTE AUTO 1.19 K/mm3 (0.84-5.20); LYMPHOCYTES PERCENT AUTO 11 % (21-46); MONOCYTES ABSOLUTE AUTO 1.32 K/mm3 (0.16-1.47); MONOCYTES PERCENT AUTO 12 % (4-13); Mean Corpuscular HGB Conc 33.3 g/dL (31.5-36.5); Mean Corpuscular Volume 93 fL (80-100); Mean Platelet Volume 9.2 fL (9.1-12.4); NEUTROPHILS ABSOLUTE AUTO 8.62 K/mm3 (1.96-9.15); NEUTROPHILS PERCENT AUTO 76 % (41-73); Platelet Count 362 K/mm3 (150-400); RDW Coefficient Variation 13.5 % (11.7-14.2); RDW Standard Deviation 46.9 fL (35.1-46.3); Red Blood Cell Count 4.32 M/mm3 (4.30-5.90); White Blood Cell Count 11.29 K/mm3 (4.00-11.30)
[2019-01-07] MEDS ORDERED: TIOT18 INH (15:50)
[2019-01-07] MEDS ORDERED: MELATONIN5 M1 PO (15:50)
[2019-01-07] MEDS ORDERED: MONT10T PO (15:51)
[2019-01-07] MEDS ORDERED: MAGNESIUM250 MG PO (15:52)
[2019-01-07 16:19] LABS: Alanine Aminotransfer (ALT/SGP 24 U/L (12-78); Albumin, Blood 3.4 g/dL (3.4-5.0); Alk Phos 50 U/L (50-136); Anion Gap 8 mmol/L (6-16); Aspartate Aminotrans (AST/SGOT 18 U/L (12-37); Bilirubin, Total 0.3 mg/dL (0.1-1.0); Blood Urea Nitrogen 12 mg/dL (8-24); CO2, Blood 27 mmol/L (21-32); Calcium, Blood 9.2 mg/dL (8.5-10.1); Chloride, Blood 106 mmol/L (98-108); Creatinine, Blood 0.93 mg/dL (0.60-1.20); Globulin, Blood 3.4 g/dL (2.2-4.0); Glomerular Filtration Rate >60 (60-); Glucose, Blood 86 mg/dL (70-99); Potassium, Blood 4.1 mmol/L (3.5-5.5); Sodium, Blood 141 mmol/L (136-145); Total Protein, Blood 6.8 g/dL (6.4-8.2); Troponin I <0.015 ng/mL (0.000-0.040)
== END 2019-01-07 18:19 | disposition home or self-care (01) ==
LOC: ER 15:17
PROVIDERS: Emergency Medicine
DX: J44.1 Chronic obstructive pulmonary disease with (acute) exacerbation (principal); D64.9 Anemia, unspecified; G47.00 Insomnia, unspecified; Z87.01 Personal history of pneumonia (recurrent); Z87.891 Personal history of nicotine dependence; Z79.899 Other long term (current) drug therapy; Z79.52 Long term (current) use of systemic steroids
CPT/HCPCS: 71046; 80053; 84484; 85025; 93005; 93010; 94644; 99285-25

== ENCOUNTER 2019-01-13 08:52 | Emergency (ER) | payer OTHER ==
[~2019-01-13] VITALS: Ht 175.3 cm; Wt 54.0 kg
[~2019-01-13 08:52] MED LIST changes: +MAGNESIUM250 MG PO; +MELATONIN5 M1 PO; +Milk Of Ma400 MG/5 M PO; +WIXELA 250-501 EACH INH
[2019-01-13 10:00] LABS: BASOPHILS ABSOLUTE AUTO 0.06 K/mm3 (0.00-0.23); BASOPHILS PERCENT AUTO 0 % (0-2); EOSINOPHILS ABSOLUTE AUTO 0.19 K/mm3 (0.00-0.68); EOSINOPHILS PERCENT AUTO 1 % (0-6); Hematocrit 40.3 % (37.0-53.0); Hemoglobin 13.6 g/dL (13.5-17.5); IMMATURE GRAN ABSOLUTE AUTO 0.06 K/mm3 (0.00-0.10); IMMATURE GRAN PERCENT AUTO 0 % (0-1); LYMPHOCYTES ABSOLUTE AUTO 0.71 K/mm3 (0.84-5.20); LYMPHOCYTES PERCENT AUTO 5 % (21-46); MONOCYTES ABSOLUTE AUTO 0.94 K/mm3 (0.16-1.47); MONOCYTES PERCENT AUTO 7 % (4-13); Mean Corpuscular HGB 30.9 pg (26.0-34.0); Mean Corpuscular HGB Conc 33.7 g/dL (31.5-36.5); Mean Corpuscular Volume 92 fL (80-100); Mean Platelet Volume 8.7 fL (9.1-12.4); NEUTROPHILS PERCENT AUTO 86 % (41-73); Platelet Count 468 K/mm3 (150-400); RDW Coefficient Variation 13.4 % (11.7-14.2); RDW Standard Deviation 45.9 fL (35.1-46.3); White Blood Cell Count 13.96 K/mm3 (4.00-11.30)
[2019-01-13 10:25] LABS: Alanine Aminotransfer (ALT/SGP 21 U/L (12-78); Albumin, Blood 3.4 g/dL (3.4-5.0); Alk Phos 52 U/L (50-136); Anion Gap 4 mmol/L (6-16); Aspartate Aminotrans (AST/SGOT 12 U/L (12-37); Bilirubin, Total 0.4 mg/dL (0.1-1.0); Blood Urea Nitrogen 9 mg/dL (8-24); Bun/Creatinine Ratio 11.5 (12.0-20.0); CO2, Blood 30 mmol/L (21-32); Calcium, Blood 9.3 mg/dL (8.5-10.1); Chloride, Blood 106 mmol/L (98-108); Creatinine, Blood 0.79 mg/dL (0.60-1.20); Globulin, Blood 3.5 g/dL (2.2-4.0); Glomerular Filtration Rate >60 (60-); Glucose, Blood 107 mg/dL (70-99); Potassium, Blood 4.1 mmol/L (3.5-5.5); Sodium, Blood 140 mmol/L (136-145); Total Protein, Blood 6.9 g/dL (6.4-8.2)
== END 2019-01-13 12:00 | disposition home or self-care (01) ==
LOC: ER 08:52
PROVIDERS: Emergency Medicine
DX: J44.1 Chronic obstructive pulmonary disease with (acute) exacerbation (principal); N40.0 Benign prostatic hyperplasia without lower urinary tract symptoms; F41.9 Anxiety disorder, unspecified; D72.829 Elevated white blood cell count, unspecified; Z87.891 Personal history of nicotine dependence; Z79.899 Other long term (current) drug therapy; Z79.52 Long term (current) use of systemic steroids
CPT/HCPCS: 36415; 71046; 80053; 85025; 94644; 99285-25

== ENCOUNTER → 2019-01-17 | Outpatient (CLI) | payer OTHER ==
[2019-01-17 22:24] LABS: Adenovirus F 40/41 Not Detected (NOT DETECT); Astrovirus Not Detected (NOT DETECT); Campylobacter Sp Not Detected (NOT DETECT); Cryptosporidium Not Detected (NOT DETECT); Cyclospora Cayetanensis Not Detected (NOT DETECT); E. Coli O157 Not Detected (NOT DETECT); Entamoeba Histolytica Not Detected (NOT DETECT); Enteroaggregative E. coli-EAEC Not Detected (NOT DETECT); Enteropathogenic E. coli-EPEC Not Detected (NOT DETECT); Enterotoxigenic E. coli-ETEC Not Detected (NOT DETECT); Giardia Lamblia Not Detected (NOT DETECT); Norovirus GI/GII Not Detected (NOT DETECT); Plesiomonas Shigelloides Not Detected (NOT DETECT); Rotavirus A Not Detected (NOT DETECT); Salmonella Sp Not Detected (NOT DETECT); Sapovirus Not Detected (NOT DETECT); Shiga Toxin-prod E. coli-STEC Not Detected (NOT DETECT); Shigella/Enteroin E. coli-EIEC Not Detected (NOT DETECT); Vibrio Cholerae Not Detected (NOT DETECT); Vibrio Sp Not Detected (NOT DETECT); Yersinia Enterocolitica Not Detected (NOT DETECT)
== END ==
LOC: LAB 19:26 → LAB SHORT 19:26
PROVIDERS: Family Medicine
DX: R10.9 Unspecified abdominal pain (principal); R19.7 Diarrhea, unspecified
CPT/HCPCS: 0097U

== ENCOUNTER 2019-10-25 16:37 | Inpatient (IN) | payer OTHER ==
[~2019-10-25] VITALS: Ht 175.3 cm; Wt 54.0 kg
[2019-10-25 17:07] LABS: BASOPHILS ABSOLUTE AUTO 0.03 K/mm3 (0.00-0.23); BASOPHILS PERCENT AUTO 0 % (0-2); EOSINOPHILS ABSOLUTE AUTO 0.12 K/mm3 (0.00-0.68); EOSINOPHILS PERCENT AUTO 1 % (0-6); Hematocrit 47.5 % (37.0-53.0); Hemoglobin 15.8 g/dL (13.5-17.5); IMMATURE GRAN ABSOLUTE AUTO 0.06 K/mm3 (0.00-0.10); IMMATURE GRAN PERCENT AUTO 1 % (0-1); LYMPHOCYTES ABSOLUTE AUTO 0.83 K/mm3 (0.84-5.20); LYMPHOCYTES PERCENT AUTO 7 % (21-46); MONOCYTES ABSOLUTE AUTO 1.15 K/mm3 (0.16-1.47); MONOCYTES PERCENT AUTO 9 % (4-13); Mean Corpuscular HGB 30.5 pg (26.0-34.0); Mean Corpuscular HGB Conc 33.3 g/dL (31.5-36.5); Mean Corpuscular Volume 92 fL (80-100); Mean Platelet Volume 8.7 fL (9.1-12.4); NEUTROPHILS ABSOLUTE AUTO 10.05 K/mm3 (1.96-9.15); NEUTROPHILS PERCENT AUTO 82 % (41-73); Platelet Count 492 K/mm3 (150-400); RDW Coefficient Variation 13.1 % (11.7-14.2); RDW Standard Deviation 44.7 fL (35.1-46.3); Red Blood Cell Count 5.18 M/mm3 (4.30-5.90); White Blood Cell Count 12.24 K/mm3 (4.00-11.30)
[2019-10-25 17:25] LABS: Alanine Aminotransfer (ALT/SGP 25 U/L (12-78); Albumin/Globulin Ratio 0.6 (0.8-1.8); Alk Phos 81 U/L (50-136); Anion Gap 8 mmol/L (6-16); Aspartate Aminotrans (AST/SGOT 15 U/L (12-37); Bilirubin, Total 0.3 mg/dL (0.1-1.0); Blood Urea Nitrogen 20 mg/dL (8-24); Bun/Creatinine Ratio 20.1 (12.0-20.0); CO2, Blood 25 mmol/L (21-32); Calcium, Blood 9.6 mg/dL (8.5-10.1); Chloride, Blood 103 mmol/L (98-108); Globulin, Blood 4.8 g/dL (2.2-4.0); Glomerular Filtration Rate >60 (60-); Glucose, Blood 136 mg/dL (70-99); Potassium, Blood 4.2 mmol/L (3.5-5.5); Sodium, Blood 136 mmol/L (136-145); Total Protein, Blood 7.8 g/dL (6.4-8.2); Troponin I <0.015 ng/mL (0.000-0.040)
[2019-10-25] MEDS ORDERED: AZIT250 PO (18:59)
[2019-10-25] MEDS ORDERED: Prednisone10 MG PO (19:01)
[2019-10-25] MEDS ORDERED: FLUT1DIS5 INH (19:01)
[2019-10-25] MEDS ORDERED: LORA.5 PO (19:01)
--- NOTE | 2019-10-25 20:40 | NUR ---
2019 PT ADMITTED TO ROOM 355 PER CART FROM ER; REPORT RECEIVED FROM AYESHA RN, ER NURSE; PT WEARING O2 AT 2L/M PER NASAL CANNULA.
--- NOTE | 2019-10-26 03:55 | NUR ---
SHIFT SUMMARY: 59 Y/O MALE RESTED COMFORTABLY ALL SHIFT; PT LUNG SOUNDS ARE DIMINISHED THROUGHOUT WITH SOB NOTED WITH SLIGHT ACTIVITY WHILE WEARING O2 AT 2L/M VIA NASAL CANNULA; PT DID WEAR PERSONAL BIPAP FROM HOME 1/2 SHIFT; DENIES PAIN OR NAUSEA; HAPPY AND COOPERATIVE; BED LOW POSITION WITH CALL LIGHT AT SIDE.
[2019-10-26 06:03] LABS: BASOPHILS ABSOLUTE AUTO 0.02 K/mm3 (0.00-0.23); BASOPHILS PERCENT AUTO 0 % (0-2); EOSINOPHILS ABSOLUTE AUTO 0.01 K/mm3 (0.00-0.68); EOSINOPHILS PERCENT AUTO 0 % (0-6); Hemoglobin 13.4 g/dL (13.5-17.5); IMMATURE GRAN ABSOLUTE AUTO 0.05 K/mm3 (0.00-0.10); IMMATURE GRAN PERCENT AUTO 1 % (0-1); LYMPHOCYTES PERCENT AUTO 10 % (21-46); MONOCYTES ABSOLUTE AUTO 0.17 K/mm3 (0.16-1.47); MONOCYTES PERCENT AUTO 2 % (4-13); Mean Corpuscular HGB 30.6 pg (26.0-34.0); Mean Corpuscular HGB Conc 33.5 g/dL (31.5-36.5); Mean Corpuscular Volume 91 fL (80-100); Mean Platelet Volume 8.8 fL (9.1-12.4); NEUTROPHILS PERCENT AUTO 87 % (41-73); Platelet Count 428 K/mm3 (150-400); RDW Coefficient Variation 13.1 % (11.7-14.2); RDW Standard Deviation 43.6 fL (35.1-46.3); Red Blood Cell Count 4.38 M/mm3 (4.30-5.90); White Blood Cell Count 7.95 K/mm3 (4.00-11.30)
[2019-10-26 06:43] LABS: Anion Gap 7 mmol/L (6-16); Blood Urea Nitrogen 20 mg/dL (8-24); Bun/Creatinine Ratio 23.6 (12.0-20.0); CO2, Blood 26 mmol/L (21-32); Chloride, Blood 105 mmol/L (98-108); Creatinine, Blood 0.85 mg/dL (0.60-1.20); Glomerular Filtration Rate >60 (60-); Glucose, Blood 146 mg/dL (70-99); Potassium, Blood 4.5 mmol/L (3.5-5.5); Sodium, Blood 138 mmol/L (136-145)
[2019-10-26 15:07] LABS: Adenovirus Not Detected (NOT DETECT); Bordetella pertussis Not Detected (NOT DETECT); Chlamydophila pneumoniae Not Detected (NOT DETECT); Coronavirus 229E Not Detected (NOT DETECT); Coronavirus HKU1 Not Detected (NOT DETECT); Coronavirus NL63 Not Detected (NOT DETECT); Coronavirus OC43 Not Detected (NOT DETECT); Human Metapneumovirus Not Detected (NOT DETECT); Human Rhinovirus/Enterovirus Not Detected (NOT DETECT); Influenza A/2009-H1 Not Detected (NOT DETECT); Influenza A/H1 Not Detected (NOT DETECT); Influenza A/H3 Not Detected (NOT DETECT); Influenza B Not Detected (NOT DETECT); Mycoplasma pneumoniae Not Detected (NOT DETECT); Parainfluenza Virus 1 Not Detected (NOT DETECT); Parainfluenza Virus 2 Not Detected (NOT DETECT); Parainfluenza Virus 3 Not Detected (NOT DETECT); Parainfluenza Virus 4 Not Detected (NOT DETECT); Respiratory Syncytial Virus Not Detected (NOT DETECT)
--- NOTE | 2019-10-26 17:29 | NUR ---
SHIFT SUMMARY- PT A/O, PLESANT AND COOPERATIVE. LUNG SOUNDS ARE DIMINISHED THROUGHOUT. HE SLEPT INTERMITENTLY DURING THIS SHIFT. HE IS RECIEVING IV ANTIBIOTICS. HIS APPETITE IS POOR. HE IS USING THE BEDSIDE CAMMODE. WORKING WITH RT. UPDATED AVIMER ON HIS STATUS.
[2019-10-26 21:42] LABS: Vancomycin, Trough 11.9 ug/mL (5.0-10.0)
[2019-10-27 04:47] LABS: BASOPHILS ABSOLUTE AUTO 0.02 K/mm3 (0.00-0.23); BASOPHILS PERCENT AUTO 0 % (0-2); EOSINOPHILS PERCENT AUTO 0 % (0-6); Hematocrit 37.4 % (37.0-53.0); Hemoglobin 12.6 g/dL (13.5-17.5); IMMATURE GRAN ABSOLUTE AUTO 0.19 K/mm3 (0.00-0.10); IMMATURE GRAN PERCENT AUTO 1 % (0-1); LYMPHOCYTES ABSOLUTE AUTO 1.15 K/mm3 (0.84-5.20); LYMPHOCYTES PERCENT AUTO 6 % (21-46); MONOCYTES ABSOLUTE AUTO 0.58 K/mm3 (0.16-1.47); MONOCYTES PERCENT AUTO 3 % (4-13); Mean Corpuscular HGB 30.7 pg (26.0-34.0); Mean Corpuscular HGB Conc 33.7 g/dL (31.5-36.5); Mean Corpuscular Volume 91 fL (80-100); Mean Platelet Volume 8.9 fL (9.1-12.4); NEUTROPHILS PERCENT AUTO 89 % (41-73); Platelet Count 429 K/mm3 (150-400); RDW Coefficient Variation 12.8 % (11.7-14.2); RDW Standard Deviation 43.3 fL (35.1-46.3); White Blood Cell Count 17.84 K/mm3 (4.00-11.30)
[2019-10-27 05:12] LABS: Anion Gap 5 mmol/L (6-16); Blood Urea Nitrogen 25 mg/dL (8-24); Bun/Creatinine Ratio 32.5 (12.0-20.0); CO2, Blood 27 mmol/L (21-32); Chloride, Blood 106 mmol/L (98-108); Creatinine, Blood 0.77 mg/dL (0.60-1.20); Glomerular Filtration Rate >60 (60-); Glucose, Blood 134 mg/dL (70-99); Potassium, Blood 4.5 mmol/L (3.5-5.5); Sodium, Blood 138 mmol/L (136-145)
--- NOTE | 2019-10-27 05:51 | NUR ---
SHIFT SUMMARY PT IS A 59 Y/O MALE, ADMITTED FOR PNA. HE IS A&O X 4, A SBA TO THE [facility]. PT WAS MEDICATED ONCE DURING THE NIGHT FOR R SHOULDER PAIN WITH PRN TYLENOL. NO COMPLAINTS OF NAUSEA. PT DID REPORT POSITIONAL SOB AND INCREASED DYSPNEA WITH EXERTION. VITAL SIGNS STABLE. PT IN 2L OF O2 VIA NC AND HOME BIPAP WHILE SLEEPING. TELE SHOWED NSR IN THE 60-70S. NO ACUTE CHANGES IN PT CONDITION NOTED DURING THE NIGHT. WILL CONTINUE TO MONITOR AND TREAT PER EMAR UNTIL HAND OFF TO DAY SHIFT RN.
--- NOTE | 2019-10-27 17:13 | NUR ---
SHIFT SUMMARY- PT IS A/O, AND COOPERATIVE. HE TOOK A SHOWER THIS SHIFT. RECIEVING IV ANTIBIOTICS. WORKING WITH RT. PT REPORTED HAVING A HEADACHE FROM LACK OF COFFEE, PROVIDED COFFE AND REPORTED TO THE DR. HOOKS, DIET ORDERS WERE CHANGED TO A REGULAR DIET. TELEMETRY WAS DISCONTINUED THIS SHIFT. PT REQUESTED TO SPEAK WITH A PATIENT ADVOCATE AND REQUESTED A COPY OF HIS RECORDS. NOTIFIED CHARGE NURSE AND WILL PASS ON IN REPORT. NO ADVOCATE ON LOCATION TODAY, I DID CALL AND LEAVE A MESSAGE WITH ADVOCATE TO FOLLOW UP.
[2019-10-28 05:45] LABS: BASOPHILS ABSOLUTE AUTO 0.05 K/mm3 (0.00-0.23); BASOPHILS PERCENT AUTO 0 % (0-2); EOSINOPHILS ABSOLUTE AUTO 0.08 K/mm3 (0.00-0.68); EOSINOPHILS PERCENT AUTO 1 % (0-6); Hematocrit 39.3 % (37.0-53.0); Hemoglobin 12.9 g/dL (13.5-17.5); IMMATURE GRAN ABSOLUTE AUTO 0.15 K/mm3 (0.00-0.10); IMMATURE GRAN PERCENT AUTO 1 % (0-1); LYMPHOCYTES ABSOLUTE AUTO 2.15 K/mm3 (0.84-5.20); LYMPHOCYTES PERCENT AUTO 12 % (21-46); MONOCYTES PERCENT AUTO 7 % (4-13); Mean Corpuscular HGB 30.6 pg (26.0-34.0); Mean Corpuscular HGB Conc 32.8 g/dL (31.5-36.5); Mean Corpuscular Volume 93 fL (80-100); Mean Platelet Volume 8.9 fL (9.1-12.4); NEUTROPHILS ABSOLUTE AUTO 13.99 K/mm3 (1.96-9.15); NEUTROPHILS PERCENT AUTO 79 % (41-73); Platelet Count 481 K/mm3 (150-400); RDW Coefficient Variation 13.2 % (11.7-14.2); RDW Standard Deviation 44.9 fL (35.1-46.3); Red Blood Cell Count 4.22 M/mm3 (4.30-5.90); White Blood Cell Count 17.72 K/mm3 (4.00-11.30)
[2019-10-28 06:07] LABS: Anion Gap 4 mmol/L (6-16); Blood Urea Nitrogen 23 mg/dL (8-24); Bun/Creatinine Ratio 26.8 (12.0-20.0); CO2, Blood 30 mmol/L (21-32); Calcium, Blood 8.9 mg/dL (8.5-10.1); Chloride, Blood 106 mmol/L (98-108); Creatinine, Blood 0.86 mg/dL (0.60-1.20); Glomerular Filtration Rate >60 (60-); Glucose, Blood 95 mg/dL (70-99); Potassium, Blood 4.5 mmol/L (3.5-5.5); Sodium, Blood 140 mmol/L (136-145)
--- NOTE | 2019-10-28 06:12 | NUR ---
SHIFT SUMMARY PT IS A 59 Y/O MALE, ADMITTED WITH PNA. HE IS A&O X 4, SBA IN THE ROOM C A FWW. PT'S O2 WAS DECREASED TO 1L VIA NC WHILE AWAKE PER PT'S REQUEST, AND BIPAP C 2L BLEED IN WHILE SLEEPING. O2 SATS REMAINED > 94%. ALL OTHER VITALS STABLE. PT RECEIVING NS KVO. NO COMPLAINTS OF ACUTE PAIN OR NAUSEA. PT DID REPORT POSITIONAL SOB AND DYSPNEA WITH EXERTION. PT REQUESTED HIS HOME DOSE OF ATIVAN 0.25 MG PO. THE HOSPITALIST FOSTER CINTRON WAS NOTIFIED, AND A ONE TIME DOSE OF ATIVAN ORDERED AT BEDTIME. NO OTHER ACUTE CHANGES IN PT CONDITION NOTED. WILL CONTINUE TO MONITOR AND TREAT PER EMAR UNTIL HAND OFF TO DAY SHIFT RN.
--- NOTE | 2019-10-28 07:14 | NUR ---
ASSUMED CARE OF PT- BEDSIDE REPORT COMPLETED WITH NIGHT RN JANIE. PER REPORT PT HAS COPD EXACERBATION, PT STATES THIS HAPPENS WAY TOO OFTEN. PT RECIEVING VANCO Q8. 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 PT DISCONNECTED HIS BIPAP DURING REPORT AND WAS ABLE TO PARTICIPATE. PT REQUESTS THAT STAFF GET A MENU FOR HIM TO COOSE HIS FOODS. PT REPOACED HIS BI-PAP AFTER REPORT AND IS SITTING UP IN BED, CALL LIGHT IN REACH NO S&S OF DISTRESS WILL CTM.
--- NOTE | 2019-10-28 16:02 | NUR ---
Patient is sitting on EOB and alert. Upon receiving an admit referral for Advance Directive education, I visit patient. Patient immediately tells me he has no interest in Advance Directive forms or education. Patient tells me about his medical issues, his housing arrangements, and his family. Patient has no emotional/spiritual distress at this time. I explore patient's belief system and provide prayer. Patient is verbalizes appreciation for the prayer.
--- NOTE | 2019-10-28 19:29 | NUR ---
SHIFT SUMMARY- PLAN IS FOR POSSIBLE DC EARLY TOMORROW. PT SWITCHED TO PO ABX TODAY. BIGGEST ISSUE T/O THE PT STAY IS THAT HE DOES NOT GET A MENU TO SELECT HIS FOOD CHOICES. STAFF MUST REQUEST A MENU AND PHOTO COPY IT TO SEND INTO THE PT ROOM, ONE IS NOT AUTOMATICALLY SENT FOR ISOLATION PTS. NO ACUTE CHANGES T/O THE DAY. PASSED ALL ON IN REPORT TO NIGHT BUNNY LION.
--- NOTE | 2019-10-29 06:38 | NUR ---
10/29/19 0615 PT AWAKE AND SITTING ON SIDE OF BED. STATED HE SLEP POORLY DUE TO FREQUENT URINATIONS. STATES HE IS NOT GETTING HIS FLOMAX. RN WILL NOTIFY DAY SHIFT MD. PT FRUSTRATED WITH HOSPITALAZATION AND CARE. COFFEE GIVEN.
[2019-10-29 10:48] LABS: BASOPHILS ABSOLUTE AUTO 0.05 K/mm3 (0.00-0.23); BASOPHILS PERCENT AUTO 0 % (0-2); EOSINOPHILS ABSOLUTE AUTO 0.21 K/mm3 (0.00-0.68); EOSINOPHILS PERCENT AUTO 2 % (0-6); Hemoglobin 14.9 g/dL (13.5-17.5); IMMATURE GRAN ABSOLUTE AUTO 0.21 K/mm3 (0.00-0.10); IMMATURE GRAN PERCENT AUTO 2 % (0-1); LYMPHOCYTES ABSOLUTE AUTO 2.91 K/mm3 (0.84-5.20); LYMPHOCYTES PERCENT AUTO 20 % (21-46); MONOCYTES ABSOLUTE AUTO 1.53 K/mm3 (0.16-1.47); MONOCYTES PERCENT AUTO 11 % (4-13); Mean Corpuscular HGB 31.2 pg (26.0-34.0); Mean Corpuscular HGB Conc 33.9 g/dL (31.5-36.5); Mean Corpuscular Volume 92 fL (80-100); Mean Platelet Volume 8.7 fL (9.1-12.4); NEUTROPHILS ABSOLUTE AUTO 9.52 K/mm3 (1.96-9.15); NEUTROPHILS PERCENT AUTO 66 % (41-73); Platelet Count 520 K/mm3 (150-400); RDW Coefficient Variation 12.9 % (11.7-14.2); RDW Standard Deviation 43.6 fL (35.1-46.3); Red Blood Cell Count 4.77 M/mm3 (4.30-5.90); White Blood Cell Count 14.43 K/mm3 (4.00-11.30)
[2019-10-29] MEDS ORDERED: IPRAT-ALBUT 0.5-3 ML INH (13:06)
[2019-10-29] MEDS ORDERED: SENNA PLUS TAB1 EACH PO (13:07)
--- NOTE | 2019-10-29 15:14 | NUR ---
DISCHARGE NOTE PT A/O, INDEPENDENT IN THE ROOM THIS SHIFT. PT ON 0.5L O2 THIS SHIFT. PT DYPNIC ON EXHURTION, STATES THIS IS NORMAL FOR HIM AT BASELINE. IV REMOVED PRIOR TO DISCHARGE. PT PROVIDED WITH DISCHARGE AND MEDICATION INSTRUCTIONS. ALSO SENT INSTRUCTIONS TO [place]. PT TRANSPORTED HOME VIA [facility].
== END 2019-10-29 15:10 | disposition home health service (06) | DRG 871 ==
LOC: ER 16:37 → MEDS 20:05
PROVIDERS: Emergency Medicine; Internal Medicine; ADMIT Family Medicine
DX: A41.9 Sepsis, unspecified organism (principal); J18.9 Pneumonia, unspecified organism; E43 Unspecified severe protein-calorie malnutrition; J96.21 Acute and chronic respiratory failure with hypoxia; J44.0 Chronic obstructive pulmonary disease with (acute) lower respiratory infection; J44.1 Chronic obstructive pulmonary disease with (acute) exacerbation; Z68.1 Body mass index [BMI] 19.9 or less, adult; Z20.828 Contact with and (suspected) exposure to other viral communicable diseases; K21.9 Gastro-esophageal reflux disease without esophagitis; F41.9 Anxiety disorder, unspecified; N40.0 Benign prostatic hyperplasia without lower urinary tract symptoms; D47.3 Essential (hemorrhagic) thrombocythemia; Z66 Do not resuscitate; Z99.89 Dependence on other enabling machines and devices; Z86.14 Personal history of Methicillin resistant Staphylococcus aureus infection; Z87.891 Personal history of nicotine dependence
CPT/HCPCS: 0099U; 36415; 71045; 71260; 80048; 80053; 80202; 83605; 83880; 84145; 84484; 85025; 87040; 93005; 93010; 94640; 94664; 94667; 94760; 96365; 96375; 97110; 97161; 98960; 99285-25; A9270; J0456; J0692; J0696; J1650; J2930; J3370; J7050; J7512; Q9967; U0002

== ENCOUNTER → 2020-06-17 | Outpatient (CLI) | payer OTHER ==
[~2020-06-17] MED LIST changes: +ACET500 PO; +BISA10S PR; +DOCUZEN 8.6-501 EACH PO; +FLUT1DIS5 INH; +HYDPAM25 PO; +IPRAT-ALBUT 0.5-3 ML INH; +MUPIROCIN22 G2 TOP; +PROBIOTIC1 EA13 PO; +PSEUDOEPHEDRINE30 M1 PO; +SENNA PLUS TAB1 EACH PO
== END | disposition home or self-care (01) ==
LOC: LAB SHORT 17:49 → PLD 17:49
DX: L08.9 Local infection of the skin and subcutaneous tissue, unspecified (principal)
CPT/HCPCS: 87070; 87147; 87205

== ENCOUNTER 2020-06-30 19:13 | Inpatient (IN) | payer OTHER ==
[~2020-06-30] VITALS: Ht 175.3 cm; Wt 57.0 kg
[~2020-06-30 19:13] MED LIST changes: -ACET500 PO; -BISA10S PR; -DOCUZEN 8.6-501 EACH PO; -FLUT1DIS5 INH; -HYDPAM25 PO; -IPRAT-ALBUT 0.5-3 ML INH; -MELATONIN5 M1 PO; -MUPIROCIN22 G2 TOP; -PROBIOTIC1 EA13 PO; -PSEUDOEPHEDRINE30 M1 PO
[2020-06-30 19:40] LABS: BASOPHILS ABSOLUTE AUTO 0.13 K/mm3 (0.00-0.23); BASOPHILS PERCENT AUTO 1 % (0-2); EOSINOPHILS ABSOLUTE AUTO 0.36 K/mm3 (0.00-0.68); EOSINOPHILS PERCENT AUTO 3 % (0-6); Hematocrit 42.2 % (37.0-53.0); Hemoglobin 14.5 g/dL (13.5-17.5); IMMATURE GRAN ABSOLUTE AUTO 0.05 K/mm3 (0.00-0.10); IMMATURE GRAN PERCENT AUTO 0 % (0-1); LYMPHOCYTES ABSOLUTE AUTO 1.95 K/mm3 (0.84-5.20); LYMPHOCYTES PERCENT AUTO 13 % (21-46); MONOCYTES ABSOLUTE AUTO 1.39 K/mm3 (0.16-1.47); MONOCYTES PERCENT AUTO 10 % (4-13); Mean Corpuscular HGB 30.3 pg (26.0-34.0); Mean Corpuscular HGB Conc 34.4 g/dL (31.5-36.5); Mean Corpuscular Volume 88 fL (80-100); Mean Platelet Volume 9.3 fL (9.1-12.4); NEUTROPHILS ABSOLUTE AUTO 10.81 K/mm3 (1.96-9.15); NEUTROPHILS PERCENT AUTO 74 % (41-73); Platelet Count 522 K/mm3 (150-400); RDW Coefficient Variation 13.6 % (11.7-14.2); RDW Standard Deviation 44.6 fL (35.1-46.3); Red Blood Cell Count 4.78 M/mm3 (4.30-5.90); White Blood Cell Count 14.69 K/mm3 (4.00-11.30)
[2020-06-30 20:28] LABS: Alanine Aminotransfer (ALT/SGP 26 U/L (12-78); Albumin, Blood 3.6 g/dL (3.4-5.0); Albumin/Globulin Ratio 0.9 (0.8-1.8); Alk Phos 73 U/L (50-136); Anion Gap 6 mmol/L (6-16); Aspartate Aminotrans (AST/SGOT 24 U/L (12-37); Bilirubin, Total 0.5 mg/dL (0.1-1.0); Blood Urea Nitrogen 11 mg/dL (8-24); Bun/Creatinine Ratio 11.9 (12.0-20.0); CO2, Blood 30 mmol/L (21-32); Calcium, Blood 9.8 mg/dL (8.5-10.1); Chloride, Blood 103 mmol/L (98-108); Creatinine, Blood 0.92 mg/dL (0.60-1.20); Globulin, Blood 3.9 g/dL (2.2-4.0); Glomerular Filtration Rate >60 (60-); Glucose, Blood 106 mg/dL (70-99); Potassium, Blood 4.4 mmol/L (3.5-5.5); Sodium, Blood 139 mmol/L (136-145); Total Protein, Blood 7.5 g/dL (6.4-8.2); Troponin I <0.015 ng/mL (0.000-0.040)
[2020-06-30 20:45] LABS: Influenza A, PCR NEGATIVE (NEGATIVE); Influenza B, PCR NEGATIVE (NEGATIVE); Resp Syncytial Virus, PCR NEGATIVE (NEGATIVE); SARS-Cov-2 (COVID-19) PCR, MMC NEGATIVE (NEGATIVE)
--- NOTE | 2020-06-30 23:00 | NUR ---
PCU ADMIT PT BROUGHT TO PCU-13 BY BRIDGER FROM ER @ APPROX 2230. PT A&O X4, ABLE TO STAND & TURN FROM RNEY TO PCU BED. PT REPORTS USING FWW @ BASELINE. PT RR LABORED. SPO2 > 92% ON 2L NC W/ PT REPORT OF 1L NC @ BASELINE & BIPAP USE AT NIGHT. PT VSS. MONITOR SHOWS SR, HR 90's. NS GTT INFUSING PER ORDERS. WILL CONTINUE TO MONITOR & PROVIDE CARE.
[2020-07-01 06:12] LABS: BASOPHILS ABSOLUTE AUTO 0.04 K/mm3 (0.00-0.23); BASOPHILS PERCENT AUTO 0 % (0-2); EOSINOPHILS PERCENT AUTO 0 % (0-6); Hematocrit 39.2 % (37.0-53.0); Hemoglobin 13.4 g/dL (13.5-17.5); IMMATURE GRAN ABSOLUTE AUTO 0.06 K/mm3 (0.00-0.10); IMMATURE GRAN PERCENT AUTO 1 % (0-1); LYMPHOCYTES ABSOLUTE AUTO 0.55 K/mm3 (0.84-5.20); LYMPHOCYTES PERCENT AUTO 6 % (21-46); MONOCYTES ABSOLUTE AUTO 0.07 K/mm3 (0.16-1.47); MONOCYTES PERCENT AUTO 1 % (4-13); Mean Corpuscular HGB 30.1 pg (26.0-34.0); Mean Corpuscular HGB Conc 34.2 g/dL (31.5-36.5); Mean Corpuscular Volume 88 fL (80-100); Mean Platelet Volume 9.3 fL (9.1-12.4); NEUTROPHILS PERCENT AUTO 93 % (41-73); Platelet Count 491 K/mm3 (150-400); RDW Coefficient Variation 13.5 % (11.7-14.2); Red Blood Cell Count 4.45 M/mm3 (4.30-5.90); White Blood Cell Count 10.02 K/mm3 (4.00-11.30)
[2020-07-01 06:24] LABS: Anion Gap 9 mmol/L (6-16); Blood Urea Nitrogen 13 mg/dL (8-24); Bun/Creatinine Ratio 15.3 (12.0-20.0); CO2, Blood 27 mmol/L (21-32); Calcium, Blood 9.2 mg/dL (8.5-10.1); Chloride, Blood 104 mmol/L (98-108); Creatinine, Blood 0.85 mg/dL (0.60-1.20); Glomerular Filtration Rate >60 (60-); Glucose, Blood 152 mg/dL (70-99); Potassium, Blood 4.4 mmol/L (3.5-5.5); Sodium, Blood 140 mmol/L (136-145)
--- NOTE | 2020-07-01 08:47 | NUR ---
Taken off of bipap V30 at 0800 at his request. C/O dry mouth. Sips of water and ice chips given. Pt is tachypneic, but was able to manage small bits at a time while sitting upright in bed, wearing oxygen at 2 l/min. Weaned down to 1 l/min (baseline home dose) after a few minutes as spo2 was 96% on 2 liters. Lung sounds diminished, no wheezing noted. States sputum no longer green, but clear.
--- NOTE | 2020-07-01 10:37 | NUR ---
assisted with morning medications, then pt requested back on bipap. bipap has 1 l/min O2 bleed in. spo2 94-96% while taking meds/eating breakfast with 1 l/min n.c.; but work of breathing noted to include use of accessory muscles, and rate at least 24/min. On bipap spo2 95%, work of breathing much less, and respirations are 12/min. Pt is prefering to sit upright in bed with bipap on at this time. Unable to eat all of his breakfast due to fatigue, he said.
--- NOTE | 2020-07-01 11:37 | NUR ---
off bipap; using oxygen n.c. 1 l/min while getting breathing treatment. spo2 95%.
--- NOTE | 2020-07-01 13:01 | NUR ---
Spiritual care visit conducted. Patient is sitting up in bed and alert. Patient tells about his current medical issue and the plan of care moving forward. He then tells me about his living arrangements at the [facility]. He shares his struggles about his limitations due to his lung disease and then on top of that the Covid restrictions that limit his world all the more. Patient agrees to prayer then after I pray states that he only prays for God's will and not for healing and that he prays for those worse off than he is and not for himself. These are important principles for him. I normalize patient's grief over the loss of his normal scope of activity and provide therapeutic listening and prayer. Patient responds well and shows signs of an elevated mood.
--- NOTE | 2020-07-02 07:29 | NUR ---
SHIFT SUMMARY PATIENT PLEASENT AND COOPERATIVE LAST NIGHT. PATIENT SLIGHTLY ANXIOUS AT TIMES, PATIENT REPORTED THAT WHEN HE STARTS GETTING ANXIOUS WHEN HIS BREATHING GETS DIFFICULT. PATIENT MEDICATED FOR ANXIETY PER EMAR. PATIENT APPEARED TO NAP ON AND OFF THROUGHOUT THE NIGHT USING HIS BIPAP. IV FLUIDS AND ABX RUNNING PER ORDERS. VITALS CHARTED. REPORT GIVEN TO ONCOMING RN.
--- NOTE | 2020-07-02 07:52 | NUR ---
PT AWAKENS easily, nods that he would like to stay on bipap V30 series while getting breathing tx from RT Bryan Negron. Vital signs noted stable. IV infusing NS at 50 cc/hour as ordered.
[2020-07-02 13:51] LABS: PO2 Arterial 76.8 mmHg (80-100); pH Blood Arterial 7.42 (7.35-7.45)
--- NOTE | 2020-07-02 16:23 | NUR ---
States that the antiacid started yesterday has been helping his heartburn today. States though that he didn't sleep well last night and is pretty exhausted today. Appetite good. Bowel care given as scheduled; pt states no BM except for very small one yesterday, but wants to wait on the MIralax until tomorrow morning. Tolerated bed bath this afternoon. Work of breathing continues to be noticeable, and although he is on his baseline home dose of oxygen both on nasal prongs and bipap, he is more short of breath than usual. Ativan given this afternoon, and helped him, he said. States he usually takes it t.i.d. at home.
--- NOTE | 2020-07-03 03:38 | NUR ---
SUMMARY NO NEW ISSUES NOTED. PT HAS BEEN RESTING ON BIPAP FOR MOST OF SHIFT. PT WAS GIVEN PO ATIVAN WHICH HELPED W/ ANXIETY. PT DENIES INCREASED SOB OR CX PAIN. PT SLEPT OFF AND ON. PT CURRENTLY RESTING W/ BIPAP IN NO DISTRESS. CALL LIGHT IN REACH.
--- NOTE | 2020-07-03 17:46 | NUR ---
SHIFT SUMMARY PT HAS BEEN RESTING FOR THE MAJORITY OF THE SHIFT. C/O NOT BEING ABLE TO SLEEP WELL AT NIGHT AND REQUESTS TO MINIMALIZE GOING INTO HIS ROOM AT NIGHT IF ABLE. C/O CONSTIPATION THIS SHIFT. MEDICATED WITH MIRALAX AND MILK OF MAG. ALSO C/O OF INDIGESTION AND GIVEN TUMS W/GOOD EFFECT. VSS.
--- NOTE | 2020-07-04 04:01 | NUR ---
SHIFT SUMMARY ASSUMED CARE OF PT AT 1900. PT IS A/OX4. HEART SOUNDS REGULAR, TELE SHOWS SINUS. LUNG SOUNDS ARE VERY TIGHT WITH WHEEZES ON THE R LOWER LUNG, PT HAS A VERY HARD TIME TALKING DUE TO SOB. PT WAS ON 1L NC AND USED BIBPAP DURING THE NIGHT. PT COMPLINED THAT THE BIPAP DIDNT WORK WELL AND WANTS HIS HOME TRILIGY BROUGHT FROM [place]. PT RECEIVED BREATHING TREAMENTS T/O THE NIGHT. PT HAD A SUCCESSFUL BM THIS SHIFT, PT IS A 1P SBA TO BSC. PT HAD A HARD TIME FINISHING HIS DINNER DUE TO SOB. PT STILL HAD HARD TIME SLEEPING TONIGHT DUE TO BIPAP GOING OFF, RT CONSULTED AND SETTINGS IMPROVED. CALL LIGHT IN REACH, BED IN LOWEST POSITON.
--- NOTE | 2020-07-04 11:24 | NUR ---
pt sitting on the side of the bed eating breakfast, appears sob, he sates he lives sob. a/ox3, pleasant and cooperative with care, follows commands well, denies complaints of pain, lungs are clear, tight and very dim t/o, but can auscultate some air movement on right side but not left, currently on 1 liter 02 via n/c, resp even and mildly labored, reports occ productive cough of yellow sputum, hrr, tele in place running sr in the 90's, no edema noted, ppp+1, cap refill <3sec, vs stable, afebrile, iv site is clear and patent, btx4, abd flat soft nontender, voids without diff, skin c/w/d, nicki austin, call light in reach.
--- NOTE | 2020-07-04 13:30 | NUR ---
pt family brought in his own trilogy bipap as he wasn't tolerating the hospitals, RT cleaned it and helped him set it up. he is more comfortable now. up to br with one person assist. call light in reach.
--- NOTE | 2020-07-04 18:22 | NUR ---
PT STATES HE'S FEELING MUCH BETTER WITH OWN BIPAP, NO COMPLAINTS OR ACUTE CHANGES THIS SHIFT. CALL LIGHT IN REACH.
--- NOTE | 2020-07-05 04:41 | NUR ---
SHIFT SUMMARY ASSUMED CARE OF PT AT 1900. PT IS A/OX4. HEART SOUNDS REGULAR, TELE SHOWS SINUS. LUNG SOUNDS HARE VERY TIGHT AND DIMINISHED, PT ON 1L NC. PT WAS MOSTLY ON HIS TRILOGY THIS SHIFT. PT STATES THAT HE IS FEELING MUCH BETTER TODAY THAN YESTERDAY BECAUSE OF THIS. PT IS A 1P SBA TO BSC. URINAL T/O THE NIGHT. NO ACUTE EVETNS, PT WAS ACTUALLY ABLE TO GET SOME SLEEP. CALL LIGHT IN REACH, BED IN LOWEST POSITION.
[2020-07-05 05:15] LABS: BASOPHILS ABSOLUTE AUTO 0.02 K/mm3 (0.00-0.23); BASOPHILS PERCENT AUTO 0 % (0-2); EOSINOPHILS ABSOLUTE AUTO 0.09 K/mm3 (0.00-0.68); EOSINOPHILS PERCENT AUTO 1 % (0-6); Hematocrit 37.6 % (37.0-53.0); Hemoglobin 12.6 g/dL (13.5-17.5); IMMATURE GRAN ABSOLUTE AUTO 0.13 K/mm3 (0.00-0.10); IMMATURE GRAN PERCENT AUTO 1 % (0-1); LYMPHOCYTES ABSOLUTE AUTO 2.27 K/mm3 (0.84-5.20); LYMPHOCYTES PERCENT AUTO 19 % (21-46); MONOCYTES ABSOLUTE AUTO 1.44 K/mm3 (0.16-1.47); MONOCYTES PERCENT AUTO 12 % (4-13); Mean Corpuscular HGB 30.2 pg (26.0-34.0); Mean Corpuscular HGB Conc 33.5 g/dL (31.5-36.5); Mean Corpuscular Volume 90 fL (80-100); Mean Platelet Volume 8.8 fL (9.1-12.4); NEUTROPHILS PERCENT AUTO 68 % (41-73); Platelet Count 432 K/mm3 (150-400); RDW Standard Deviation 46.5 fL (35.1-46.3); Red Blood Cell Count 4.17 M/mm3 (4.30-5.90); White Blood Cell Count 12.25 K/mm3 (4.00-11.30)
[2020-07-05 05:35] LABS: Albumin, Blood 2.5 g/dL (3.4-5.0); Anion Gap 3 mmol/L (6-16); Blood Urea Nitrogen 19 mg/dL (8-24); Bun/Creatinine Ratio 20.1 (12.0-20.0); CO2, Blood 33 mmol/L (21-32); Calcium, Blood 8.6 mg/dL (8.5-10.1); Chloride, Blood 106 mmol/L (98-108); Creatinine, Blood 0.94 mg/dL (0.60-1.20); Glomerular Filtration Rate >60 (60-); Glucose, Blood 85 mg/dL (70-99); Phosphorus, Blood 2.7 mg/dL (2.5-4.9); Potassium, Blood 4.1 mmol/L (3.5-5.5); Sodium, Blood 142 mmol/L (136-145)
--- NOTE | 2020-07-05 17:32 | NUR ---
SHIFT SUMMARY PATIENT ALERT AND ORIENTED THIS SHIFT. PATIENT IS EXHAUSTED FROM MULTIPLE NIGHTS WITH LITTLE SLEEP. PATIENT FRUSTRATED THIS AM AND STATES "I CAN'T EVEN THINK STRAIGHT." PATIENT SITTING UP IN BED THROUGHOUT THIS SHIFT. PATIENT MEDICATED FOR ANXIETY. BLADDER SCAN ORDERED DUE TO PATIENT'S RLQ PAIN, SCANNED FLUID AMOUNT > 600 ML. STRAIGHT CATH PERFORMED WITH > 800 ML OUT. PATIENT STATED NO FEELING OF URINE IN HIS BLADDER PRIOR TO CATH. PATIENT CONTINUES ON IV ANTIBIOTICS. PATIENT SITTING UP IN BED RESTING THROUGHOUT THIS SHIFT.
--- NOTE | 2020-07-05 22:54 | NUR ---
PT IS VERY UPSET ABOUT NOT BEING ABLE TO SLEEP THE LAST 4 DAYS. HE STATES THAT HIS DOCTOR SAID THAT SHE WOULD GIVE HIM SOMETHING TO SLEEP BUT NEVER DID. EXTRA DOSES OF MELATONIN WILL NOT HELP AND PT REFUSED THEM. PT ALSO REFUSED PO ATIVAN. PT THREATENED TO LEAVE AMA IF HE DID NOT GET SOMETHING FOR SLEEP. HOSPITALIST NOTIFIED AND ORDERED TRAZADONE. WHEN WALKING INTO THE PATIENTS ROOM, THINGS IN THE ROOM WHERE SCATTERED AND PT WAS TRYING TO GET OUT OF BED. WHEN ASKING WHAT WAS WRONG, PT STATED THAT HE WAS UPSET THAT IT TOOK SO LONG TO GIVE THE MEDICATION. PT IS VERY UPSET SHOWING INCREASED RESPIRATIONS AND RED FACE. WHEN THIS NURSE ASKED WHAT THEY COULD DO PT WAS SILENT AND THIS NURSE LEFT. AN HOUR LATER PT WAS STILL UPSET THAT HE COULD NOT SLEEP AND ASKED FOR A PHONE BOOK SO THAT HE COULD CALL SOMEONE TO COME GET HIM. CHARGE NURSE AND THIS NURSE WENT TO TALK TO PT. CALLED HOSPITALIST AGAIN WHO ORDERED ATIVAN. PT ABX WAS GIVEN EARLY TO B[facility]ARE IF MEDICATION WORKS. CALL LIGHT IN REACH, BED IN LOWEST POSTION.
[2020-07-06 04:21] LABS: BASOPHILS ABSOLUTE AUTO 0.03 K/mm3 (0.00-0.23); BASOPHILS PERCENT AUTO 0 % (0-2); EOSINOPHILS ABSOLUTE AUTO 0.47 K/mm3 (0.00-0.68); EOSINOPHILS PERCENT AUTO 3 % (0-6); Hematocrit 38.8 % (37.0-53.0); Hemoglobin 13.3 g/dL (13.5-17.5); IMMATURE GRAN ABSOLUTE AUTO 0.23 K/mm3 (0.00-0.10); IMMATURE GRAN PERCENT AUTO 2 % (0-1); LYMPHOCYTES ABSOLUTE AUTO 2.16 K/mm3 (0.84-5.20); LYMPHOCYTES PERCENT AUTO 16 % (21-46); MONOCYTES ABSOLUTE AUTO 1.37 K/mm3 (0.16-1.47); MONOCYTES PERCENT AUTO 10 % (4-13); Mean Corpuscular HGB 30.4 pg (26.0-34.0); Mean Corpuscular HGB Conc 34.3 g/dL (31.5-36.5); Mean Corpuscular Volume 89 fL (80-100); Mean Platelet Volume 8.8 fL (9.1-12.4); NEUTROPHILS ABSOLUTE AUTO 9.55 K/mm3 (1.96-9.15); NEUTROPHILS PERCENT AUTO 69 % (41-73); Platelet Count 485 K/mm3 (150-400); RDW Coefficient Variation 13.6 % (11.7-14.2); RDW Standard Deviation 44.3 fL (35.1-46.3); Red Blood Cell Count 4.37 M/mm3 (4.30-5.90); White Blood Cell Count 13.81 K/mm3 (4.00-11.30)
--- NOTE | 2020-07-06 04:29 | NUR ---
SHIFT SUMMARY ASSUMED CARE OF PT AT 1900. PT IS A/OX4. HEART SOUNDS REGULAR, LUNG SOUNDS ARE VERY DIMINISHED AND TIGHT. PT REFUSED RT CARE BEUCASE HE DID NOT GET HIS SLEEPING PILL ON TIME. PT IS A 1P SBA TO BATHROOM. PT VOIDING CLEAR YELLOW URINE. PT HAD BM THIS AM. PT ULTIMATELY REFUSED HAVING FLUIDS RUNING BUT WILL TAKE HIS ABX. PT ALSO REFUSES TO HAVE PULSE OXIMETY ONE. HAVING ALL THE CORDS MAKES PT FEEL ANXIOUS. PT WAS ABLE TO GET SOME SLEEPT AFTER RECEIVING IV ATIVAN. PT IS STILL ANGER AND WANTS TO LEAVE TODAY. CALL LIGHT IN REACH, BED IN LOWEST POSITION.
[2020-07-06 04:38] LABS: Albumin, Blood 2.7 g/dL (3.4-5.0); Anion Gap 4 mmol/L (6-16); Blood Urea Nitrogen 16 mg/dL (8-24); Bun/Creatinine Ratio 17.1 (12.0-20.0); CO2, Blood 34 mmol/L (21-32); Chloride, Blood 104 mmol/L (98-108); Creatinine, Blood 0.94 mg/dL (0.60-1.20); Glomerular Filtration Rate >60 (60-); Glucose, Blood 81 mg/dL (70-99); Phosphorus, Blood 3.8 mg/dL (2.5-4.9); Potassium, Blood 3.9 mmol/L (3.5-5.5); Sodium, Blood 142 mmol/L (136-145)
--- NOTE | 2020-07-06 09:20 | NUR ---
PT WITH C/O OF NOT RECEIVING HIS MEDS PER HOME, ASKED TO SPEAK WITH PT ADVOCATE. CALLED RENATA, PT ADVOCATE, SHE WILL SEE PT AROUND 11:OOAM. OFFERED PRN ATIVAN WITH AM MEDS, PT DECLINED. WILL CONTINUE TO MONITOR.
[2020-07-06 11:26] LABS: Source, Urine Catheter
[2020-07-06 11:36] LABS: Bilirubin, Urine Neg (Neg); Blood, Urine 4+ (Neg); Glucose Qualitative, Urine Neg (Neg); Ketones, Urine Neg (Neg); Leukocyte Esterase, Urine Neg (Neg); Nitrite, Urine Neg (Neg); Protein, Urine Neg (Neg); Specific Gravity, Urine 1.005 (1.003-1.022); Urobilinogen, Urine NORM (Normal)
[2020-07-06 11:49] LABS: Appearance, Urine Clear (Clear); Color, Urine Pale Yellow (P-Yellow); Squamous Epithelial Cells Not Seen /hpf (Few); White Blood Cells, Urine Not Seen /hpf (0-5)
[2020-07-06 11:50] LABS: Bacteria Not Seen /hpf
--- NOTE | 2020-07-06 19:46 | NUR ---
Met [facility] pt we have spoken many times. Pt much more frail and thin since our last encounter. He is also more repeattive and not tracking conversations as well. Pt has severe anexiety he is hypervigilant, states he has some ptsd issues. Pt starting speaking about his care and freezes up because of air hunger and anger and stress. did some coaching and kept conversation therputic. He is angry that every one wants him to go on hospice. He states his wharf laborer advised him he is dying. He is grieving. He is obsessed with covid. And wanted to talk in depth about how bad it is. He is paranoid to use the internet becuse the govenment or hackers may get his information. Spoke of symptom mansolot was blut with him that if he is not on comfort care his prn meds will be limited due to precautions of somulence. He stateds he has not slept well for weeks. That the sort manager of were he lives hates him. He was distraught that his mother could only visit later in the day to to limited visitation. He is having more headaches. he feels life he has something flopping in tht back of his throat. He states his back is more tight and he feels one of his teeth are infected again. Barak spoke of comfort care and what I could offer him for care. reassured him that i understand hi vigilance and respect his journey and will help him anyway i can, got him soem readers. will reach out to his family. He may not ever be able to say he is done. If he declines further will speak with his family on decision making. will follow up with him daily for support.
[2020-07-07 03:37] LABS: BASOPHILS ABSOLUTE AUTO 0.02 K/mm3 (0.00-0.23); BASOPHILS PERCENT AUTO 0 % (0-2); EOSINOPHILS ABSOLUTE AUTO 0.02 K/mm3 (0.00-0.68); EOSINOPHILS PERCENT AUTO 0 % (0-6); Hematocrit 36.4 % (37.0-53.0); Hemoglobin 12.6 g/dL (13.5-17.5); IMMATURE GRAN ABSOLUTE AUTO 0.17 K/mm3 (0.00-0.10); IMMATURE GRAN PERCENT AUTO 1 % (0-1); LYMPHOCYTES ABSOLUTE AUTO 0.89 K/mm3 (0.84-5.20); LYMPHOCYTES PERCENT AUTO 7 % (21-46); MONOCYTES ABSOLUTE AUTO 0.16 K/mm3 (0.16-1.47); MONOCYTES PERCENT AUTO 1 % (4-13); Mean Corpuscular HGB 30.4 pg (26.0-34.0); Mean Corpuscular HGB Conc 34.6 g/dL (31.5-36.5); Mean Corpuscular Volume 88 fL (80-100); Mean Platelet Volume 8.9 fL (9.1-12.4); NEUTROPHILS ABSOLUTE AUTO 11.39 K/mm3 (1.96-9.15); NEUTROPHILS PERCENT AUTO 90 % (41-73); Platelet Count 447 K/mm3 (150-400); RDW Coefficient Variation 13.2 % (11.7-14.2); RDW Standard Deviation 43.3 fL (35.1-46.3); Red Blood Cell Count 4.14 M/mm3 (4.30-5.90); White Blood Cell Count 12.65 K/mm3 (4.00-11.30)
[2020-07-07 03:52] LABS: Albumin, Blood 2.4 g/dL (3.4-5.0); Anion Gap 5 mmol/L (6-16); Blood Urea Nitrogen 16 mg/dL (8-24); CO2, Blood 32 mmol/L (21-32); Calcium, Blood 8.8 mg/dL (8.5-10.1); Chloride, Blood 103 mmol/L (98-108); Glomerular Filtration Rate >60 (60-); Glucose, Blood 148 mg/dL (70-99); Phosphorus, Blood 3.9 mg/dL (2.5-4.9); Potassium, Blood 4.3 mmol/L (3.5-5.5); Sodium, Blood 140 mmol/L (136-145)
--- NOTE | 2020-07-07 05:05 | NUR ---
SHIFT SUMMARY NO ACUTE CHANGES THIS SHIFT. VSS. ACO, ANXIETY LESS PER PT VS LAST COUPLE DAYS. PT REMAINS IN SR. ON 1-2L NC OR HOME TRILOGY WITH 1.5L BLEEDIN. ZENG REMAINS PATENT AND DRAINING TO GRAVITY. POWERGLIDE PATENT. PT APPEARS TO HAVE SLEPT SOME TONIGHT. EFFORT MADE TO MINIMIZE STAFF IN AND OUT OF ROOM TO ALLOW FOR REST PER PT REQUEST. PT REMAINS IN ISOLATION. WILL CONTINUE TO MONITOR UNTIL SHIFT CHANGE.
--- NOTE | 2020-07-07 17:51 | NUR ---
SHIFT SUMMARY PT ALERT AND ORIENTED X 4. PT REPORTED TO BE SORE FROM SITTING IN BED. NEW EGG SHELL CRATE PUT ON BED, PT REPORTS RELIEF. HR STABLE. BP STABLE. OXYGEN SATURATION MAINTAINED ABOVE 92% ON 2 L OF OXYGEN VIA NC OR CPAP. PT ABLE TO TURN SELF IN BED. PT SBA UP TO COMMODE. ZENG PATENT TO GRAVITY DRAIN. WILL CONTINUE TO MONITOR UNTIL REPORT GIVEN TO NIGHTSHIFT RN.
[2020-07-08 04:47] LABS: BASOPHILS ABSOLUTE AUTO 0.02 K/mm3 (0.00-0.23); BASOPHILS PERCENT AUTO 0 % (0-2); EOSINOPHILS PERCENT AUTO 0 % (0-6); Hematocrit 35.6 % (37.0-53.0); Hemoglobin 12.1 g/dL (13.5-17.5); IMMATURE GRAN ABSOLUTE AUTO 0.22 K/mm3 (0.00-0.10); IMMATURE GRAN PERCENT AUTO 1 % (0-1); LYMPHOCYTES ABSOLUTE AUTO 0.84 K/mm3 (0.84-5.20); LYMPHOCYTES PERCENT AUTO 5 % (21-46); MONOCYTES ABSOLUTE AUTO 0.71 K/mm3 (0.16-1.47); MONOCYTES PERCENT AUTO 4 % (4-13); Mean Corpuscular HGB 30.1 pg (26.0-34.0); Mean Corpuscular Volume 89 fL (80-100); NEUTROPHILS ABSOLUTE AUTO 14.68 K/mm3 (1.96-9.15); NEUTROPHILS PERCENT AUTO 89 % (41-73); Platelet Count 492 K/mm3 (150-400); RDW Coefficient Variation 13.7 % (11.7-14.2); RDW Standard Deviation 44.7 fL (35.1-46.3); Red Blood Cell Count 4.02 M/mm3 (4.30-5.90); White Blood Cell Count 16.47 K/mm3 (4.00-11.30)
--- NOTE | 2020-07-08 05:22 | NUR ---
SHIFT SUMMARY NO ACUTE CHANGES THIS SHIFT. AXO. IN SR - ST. REMAINS ON 2LNC OR HOME TRILOGY 1.85-2L BLEEDIN. ZENG PATENT AND DRAINING. LUNG SOUNDS CLEAR/DIM. OVERALL RESP STATUS BETTER THAN PREV NOC SHIFT. OVERALL, STAFF HAVE LEFT PT TO SELF IN ROOM LACK OF SLEEP HAS BEEN AN ISSUE FOR PT. PRN INSOMINIA MEDS GIVEN AND PT SLEPT UNTIL ABOUT 0330. WHEN WOKEN UP FOR RT TREATMENT, PT BECAME IRRITABLE WITH STAFF. ASKING FOR MORE SLEEP MEDS, PT EDUCATED THAT IT WAS TOO LATE IN THE SHIFT TO BE ADMINISTERING SLEEP MEDS IN PREPARATION FOR DAY SHIFT. PT STATES NOT WANTING TO BE WOKEN AGAIN UNTIL 0800. PT ALERTED THAT STAFF WOULD CONTINUE TO TRY AND ALLOW FOR LONG STRETCHED OF UNINTERRUPTED SLEEP BUT SAFETY STILL COMES FIRST. PT REMAINS IN ISOLATION STILL. WILL CONTINUE TO MONITOR UNTIL SHIFT CHANGE.
--- NOTE | 2020-07-08 17:38 | NUR ---
SHIFT SUMMARY; A/A/OX4 DURING SHIFT. 2L O2 VIA NC. HOME TRILOGY USE NEEDED BY PT FOR SOB. APPEARS ANXIOUS AT TIMES. SITS IN CHAIR FOR MEALS, PARTICIPATED WITH PT/OT. NO ACUTE MEDICAL CHANGES DURING SIFT. WILL CONTINUE TO MONITOR UNTIL CHANGE OF SHIFT.
--- NOTE | 2020-07-08 18:10 | NUR ---
review of pt needs and progress with nursing awaiting plan for pulmonolgy.
--- NOTE | 2020-07-08 23:50 | NUR ---
0400 VITALS PT REFUSING STAFF IN ROOM AFTER 2300 UNLESS PT CALLS TO SLEEP.. AM LABS COMPLETED EARLY. 2300 VITALS STABLE. PT'S TRILOGY WATER CANNISTER FILLED. AND OTHER NEEDS MET BEFORE LEAVING ROOM. DISCUSSED WITH SHOVEL LOADER OPERATOR, AGREES TO JUST ALLOW PT TO SLEEP AND CALL HE HAS BEEN AXO BUT INCREASINGLY IRRITABLE/ANGRY ABOUT BEING WOKEN UP. WILL CHECK ON PT VIA DOOR WINDOW Q2H. ALL SLEEP MEDS ADMINISTERED PER EMAR.
[2020-07-09 00:09] LABS: BASOPHILS ABSOLUTE AUTO 0.03 K/mm3 (0.00-0.23); BASOPHILS PERCENT AUTO 0 % (0-2); EOSINOPHILS ABSOLUTE AUTO 0.03 K/mm3 (0.00-0.68); EOSINOPHILS PERCENT AUTO 0 % (0-6); Hematocrit 38.1 % (37.0-53.0); Hemoglobin 12.7 g/dL (13.5-17.5); IMMATURE GRAN ABSOLUTE AUTO 0.51 K/mm3 (0.00-0.10); IMMATURE GRAN PERCENT AUTO 3 % (0-1); LYMPHOCYTES ABSOLUTE AUTO 0.96 K/mm3 (0.84-5.20); LYMPHOCYTES PERCENT AUTO 5 % (21-46); MONOCYTES ABSOLUTE AUTO 1.72 K/mm3 (0.16-1.47); MONOCYTES PERCENT AUTO 9 % (4-13); Mean Corpuscular HGB 30.2 pg (26.0-34.0); Mean Corpuscular HGB Conc 33.3 g/dL (31.5-36.5); Mean Corpuscular Volume 91 fL (80-100); Mean Platelet Volume 9.1 fL (9.1-12.4); NEUTROPHILS ABSOLUTE AUTO 17.08 K/mm3 (1.96-9.15); NEUTROPHILS PERCENT AUTO 84 % (41-73); Platelet Count 529 K/mm3 (150-400); RDW Coefficient Variation 14.1 % (11.7-14.2); RDW Standard Deviation 47.1 fL (35.1-46.3); Red Blood Cell Count 4.21 M/mm3 (4.30-5.90); White Blood Cell Count 20.33 K/mm3 (4.00-11.30)
--- NOTE | 2020-07-09 03:12 | NUR ---
PT HUGOION 0250 - PT CALLS THIRD STEEL POURER LIGHT, SPRING ASSEMBLER SUPERVISOR ANSWERS AND PT SCREAMING/CUSSING. THIS RN TO ROOM. IMMEDIATELY UPON ARRIVAL TO ROOM, PT SCREAMING THROUGH BIPAP AND FLAILING ARMS. SCREAMING "TELL MY NEIGHBOR TO TURN DOWN THEIR FUCKING VOLUME. THIS IS FUCKING RIDICULOUS. I AM GOING TO FILE A REPORT. ALL THE MOTHER F'ERS HERE WON'T LET ME SLEEP", AND SO ON. THIS RN ATTEMPED TO CALM PT DOWN. PT TOLD THE TV WAS NOT ON IN HIS NEIGHBORS ROOM AND THAT NURSING STAFF WAS ADMITTING A PT. ATTEMPTED TO APOLOGIZE FOR NOISE BUT TOLD PT THAT THE SOUNDS THAT WERE HAPPENING WITH TRANSFERRING PT TO NEW BED, ASKING HEALTH HX, ETC WERE UNAVOIDABLE AND THAT THE PT NEEDED TO BE UNDERSTANDING THAT HE WAS IN A HOSPITAL AND NURSING CARE FOR OTHER PT'S COULD NOT REVOLVE AROUND HIS PREFERENCE FOR SOUND. PT STILL SCREAMING AT THIS RN. PT TOLD THIS WAS UNACCEPTABLE BEHAVIOR AND THAT WE CAN TALK WHEN HE CALMS DOWN AND STOPS YELLING. PT SLAMS ARMS DOWN, TURNS OFF LIGHTS IN ROOM AND ROLLS OVER. OF NOTE, ALL STAFF HAD NOT BEEN IN ROOM ASIDE FOR MEDICATIONS AND VITALS (SEE PREVIOUS NOTE REGARDING PT REFUSING VITALS). ALSO OF NOTE, STAFF WERE TAKING EXTRA CARE TO KEEP VOLUME DOWN IN OTHER PT'S ROOM. PT'S ROOM DOOR CLOSED. AND THE GENERAL PCU AMBIENT NOISE HAD BEEN VERY SOFT THIS SHIFT.
--- NOTE | 2020-07-09 04:46 | NUR ---
SHIFT SUMMARY SEE PREVIOUS NOTES. NO ACUTE CHANGES WITH NEURO, CARDIAC, RESP STATUS. REMAINS SR, ON 1.5-2LNC OR HOME TRILOGY. UP TO BSC THIS SHIFT AND HAD BM. KARRI REMAINS PATENT AND DRAINING TO GRAVITY. POWERGLIDE PATENT AD RAWS BLOOD. PT REFUSING 0400 VSS OR REALLY ANY STAFF INTERACTION AFTER 2300 EXCEPT TO YELL ABOUT NOISE OR WAKING UP DESPITE MULTIPLE SLEEP MEDS. DOOR CLOSED FOR ISOLATION. WILL CONTINUE TO MONITOR UNTIL SHIFT CHANGE.
--- NOTE | 2020-07-09 12:03 | NUR ---
REPORT TO BUNNY CANTRELL TO ASSUME CARE ON MEDICAL FLOOR.
--- NOTE | 2020-07-09 12:43 | NUR ---
TRANSFER PT ARRIVED FROM PCU, ORIENTED PT TO ROOM AND CALL SYSTEM, HOOKED PT UP TO HIS TRILOGY, PT DECLINED LUNCH AT THIS TIME
--- NOTE | 2020-07-09 12:44 | NUR ---
Spiritual care visit conducted. Patient is sitting on EOB and asks me to pull up a chair. Patient immediately tells me that he has been a grumpy old man but also goes on to tell me his frustration about not being able to get the medications he needs for sleep and how he can't seem to get ancillary services to not visit at night. We then talk at length about his struggles with his disease and how he blames himself for smoking and not wearing a mask when dealing with many of the chemicals that were stirred with his occupations. We discuss God, his loss of independnce and his disdain for having to ask for help for the smallest things. I normalize patient's experience, reinforce helpful attitudes and provide therapeutic listening, spiritual guidance, and prayer. Patient responds well and shows signs of being encouraged in his ricky and increased hope. Patient voices appreciation for the visit and states that this human resources safety manager is very good at my job. I will continue to remain available to patient and family.
--- NOTE | 2020-07-09 17:13 | NUR ---
SUMMARY PT SITTING UP IN BED WATCHING TV, PT ON HIS HOME TRILOGY MACHINE, PT HAS BEEN PLEASANT AND COOPERATIVE WITH CARE SINCE ARRIVAL, PATIENT ADVOCATE IN TO VISIT WITH THE PT, PT HOPEFUL TO GET SOME GOOD SLEEP TONIGHT, VSS, NO ACUTE CHANGES, WILL CONT TO MONITOR
--- NOTE | 2020-07-10 04:08 | NUR ---
SHIFT SUMMARY NO ACUTE CHANGES TO REPORT THIS SHIFT, PT HAS RESTED MOST OF THE NIGHT. PT IS VERY SPECIFIC IN HIS CARE AND REQUESTS NOT TO BE DISTURBED BY STAFF AFTER 11 PM. HE STATES THAT HE DOES NOT EVEN WANT HIS DOOR CRACKED OPEN FOR NURSING ROUNDS. PT IRRITABLE AND LABILE AT TIMES, AND BECOMES FRUSTRATED WHEN THINGS AREN'T DONE IN A PARTICULAR WAY. PT OFFERED REASSURANCE AND GIVEN MUCH AUTONOMY POSSIBLE IN CARE. ASSESSEMENT UNCHANGED. PT SOB WITH EXERTION. 1L O2 IN PLACE WHILE AWAKE. TRILOGY BIPAP AT NIGHT WHILE SLEEPING. BED IN LOWEST POSITION, CALL LIGHT WITHIN REACH.
[2020-07-10 05:28] LABS: BASOPHILS ABSOLUTE AUTO 0.04 K/mm3 (0.00-0.23); BASOPHILS PERCENT AUTO 0 % (0-2); EOSINOPHILS ABSOLUTE AUTO 0.03 K/mm3 (0.00-0.68); EOSINOPHILS PERCENT AUTO 0 % (0-6); Hematocrit 37.4 % (37.0-53.0); Hemoglobin 12.7 g/dL (13.5-17.5); IMMATURE GRAN ABSOLUTE AUTO 0.35 K/mm3 (0.00-0.10); IMMATURE GRAN PERCENT AUTO 2 % (0-1); LYMPHOCYTES ABSOLUTE AUTO 2.35 K/mm3 (0.84-5.20); LYMPHOCYTES PERCENT AUTO 16 % (21-46); MONOCYTES ABSOLUTE AUTO 1.48 K/mm3 (0.16-1.47); MONOCYTES PERCENT AUTO 10 % (4-13); Mean Corpuscular HGB 30.3 pg (26.0-34.0); Mean Corpuscular Volume 89 fL (80-100); Mean Platelet Volume 8.8 fL (9.1-12.4); NEUTROPHILS ABSOLUTE AUTO 10.73 K/mm3 (1.96-9.15); NEUTROPHILS PERCENT AUTO 72 % (41-73); Platelet Count 493 K/mm3 (150-400); RDW Standard Deviation 45.3 fL (35.1-46.3); Red Blood Cell Count 4.19 M/mm3 (4.30-5.90); White Blood Cell Count 14.98 K/mm3 (4.00-11.30)
--- NOTE | 2020-07-10 15:41 | NUR ---
SHIFT SUMMARY- PT IS A/O, COOPERATIVE. HE IS EATINGAND DRINKING WELL. HIS IV ABX WERE D/C THIS SHIFT. HE RECIEVED A BED BATH TODAY AND TOLERATED WELL. HE WILL BEGIN WORKING WITH PT AND OT TOMORROW AM. HIS ZENG IS IN PLACE AND DRAINING WELL. TOUCHED BASE WITH PT ADVOCATE. SHE WILL TRY TO SEE HIM TODAY. HIS BED IS IN THE LOW POSITION AND CALL LIGHT IS WITIN REACH.
--- NOTE | 2020-07-11 06:10 | NUR ---
PT IS A/O, IRRITABLE AT TIMES, PREFERS DOOR SHUT. POWERGLIDE IN ZAN, ZENG CATH, USES FWW TO BATHROOM BUT DOES GET SOB WITH ACTIVITY. BIPAP AND O2 AT 1 L, CONTINUOUS BIOX ON.
[2020-07-11 06:11] LABS: BASOPHILS ABSOLUTE AUTO 0.04 K/mm3 (0.00-0.23); BASOPHILS PERCENT AUTO 0 % (0-2); EOSINOPHILS ABSOLUTE AUTO 0.25 K/mm3 (0.00-0.68); EOSINOPHILS PERCENT AUTO 2 % (0-6); Hematocrit 40.8 % (37.0-53.0); Hemoglobin 13.7 g/dL (13.5-17.5); IMMATURE GRAN PERCENT AUTO 4 % (0-1); LYMPHOCYTES ABSOLUTE AUTO 3.16 K/mm3 (0.84-5.20); LYMPHOCYTES PERCENT AUTO 20 % (21-46); MONOCYTES ABSOLUTE AUTO 1.75 K/mm3 (0.16-1.47); MONOCYTES PERCENT AUTO 11 % (4-13); Mean Corpuscular HGB 30.5 pg (26.0-34.0); Mean Corpuscular HGB Conc 33.6 g/dL (31.5-36.5); Mean Corpuscular Volume 91 fL (80-100); Mean Platelet Volume 8.7 fL (9.1-12.4); NEUTROPHILS ABSOLUTE AUTO 9.76 K/mm3 (1.96-9.15); NEUTROPHILS PERCENT AUTO 63 % (41-73); Platelet Count 507 K/mm3 (150-400); RDW Coefficient Variation 13.7 % (11.7-14.2); Red Blood Cell Count 4.49 M/mm3 (4.30-5.90); White Blood Cell Count 15.56 K/mm3 (4.00-11.30)
--- NOTE | 2020-07-11 19:36 | NUR ---
SHIFT SUMMARY: NO ACUTE CHANGES TO REPORT THIS SHIFT. PT A&O; ANXIOUS; COOPERATIVE WITH CARE. TRILOGY DEVICE FOR END-STAGE COPD; NASAL CANNULA WHEN OOB. MEDICATED FOR ESCOBAR PAIN PER EMATrent ZENG D/C'd THIS SHIFT; PT ON TAMSULOSIN; PT REPORTS ABILITY TO VOID SPONTANEOUSLY WITH LITTLE DIFFICULTY. AWAITING PT & OT EVALS PRIOR TO D/C. REPORT GIVEN TO ONCOMING RN.
[2020-07-12 05:29] LABS: BASOPHILS ABSOLUTE AUTO 0.07 K/mm3 (0.00-0.23); BASOPHILS PERCENT AUTO 0 % (0-2); EOSINOPHILS ABSOLUTE AUTO 0.39 K/mm3 (0.00-0.68); EOSINOPHILS PERCENT AUTO 2 % (0-6); Hematocrit 41.4 % (37.0-53.0); IMMATURE GRAN PERCENT AUTO 4 % (0-1); LYMPHOCYTES ABSOLUTE AUTO 2.78 K/mm3 (0.84-5.20); LYMPHOCYTES PERCENT AUTO 14 % (21-46); MONOCYTES ABSOLUTE AUTO 1.68 K/mm3 (0.16-1.47); MONOCYTES PERCENT AUTO 8 % (4-13); Mean Corpuscular HGB 30.1 pg (26.0-34.0); Mean Corpuscular HGB Conc 33.8 g/dL (31.5-36.5); Mean Corpuscular Volume 89 fL (80-100); Mean Platelet Volume 8.7 fL (9.1-12.4); NEUTROPHILS ABSOLUTE AUTO 14.21 K/mm3 (1.96-9.15); NEUTROPHILS PERCENT AUTO 71 % (41-73); Platelet Count 510 K/mm3 (150-400); RDW Coefficient Variation 13.5 % (11.7-14.2); RDW Standard Deviation 44.6 fL (35.1-46.3); Red Blood Cell Count 4.65 M/mm3 (4.30-5.90); White Blood Cell Count 19.93 K/mm3 (4.00-11.30)
--- NOTE | 2020-07-12 06:00 | NUR ---
PT IS A/O, UP TO RESTROOM WITH FWW. KARRI GERMAN'Rosa YESTERDAY, PT IS URINATING CLEAR YELLOW URINE. MEDS GIVEN FOR SLEEP THIS SHIFT, PT SLEPT WITH BIPAP ON 02 AT 1 L, CONTINUOUS BIOX MONITORING. PT TO WORK WITH PT.
--- NOTE | 2020-07-12 19:33 | NUR ---
SHIFT SUMMARY: NO ACUTE CHANGES TO REPORT THIS SHIFT. PT A&O; OCC IRRITABLE; COOPERATIVE WITH CARE. NO C/O PAIN THIS SHIFT. ZENG D/C'd 07/11; PT VOIDING SPONTANEOUSLY, WITH SOME DIFFICULTY; BLADDER SCAN Q SHIFT; URINARY RETENTION INCREASING T/O SHIFT; NEW ORDER FOR STRAIGHT CATH FOR PVR > 450; STRAIGHT CATH X1 THIS SHIFT; PT TOLERATED WELL. RT FOLLOWING. REPORT GIVEN TO ONCOMING RN.
--- NOTE | 2020-07-12 23:21 | NUR ---
BLADDER SCAN PERFORMED POST VOID= 306ML
[2020-07-13 05:28] LABS: BASOPHILS ABSOLUTE AUTO 0.08 K/mm3 (0.00-0.23); BASOPHILS PERCENT AUTO 0 % (0-2); EOSINOPHILS ABSOLUTE AUTO 0.28 K/mm3 (0.00-0.68); EOSINOPHILS PERCENT AUTO 1 % (0-6); Hematocrit 38.1 % (37.0-53.0); Hemoglobin 13.1 g/dL (13.5-17.5); IMMATURE GRAN ABSOLUTE AUTO 0.66 K/mm3 (0.00-0.10); IMMATURE GRAN PERCENT AUTO 3 % (0-1); LYMPHOCYTES ABSOLUTE AUTO 2.14 K/mm3 (0.84-5.20); LYMPHOCYTES PERCENT AUTO 10 % (21-46); MONOCYTES ABSOLUTE AUTO 1.73 K/mm3 (0.16-1.47); MONOCYTES PERCENT AUTO 8 % (4-13); Mean Corpuscular HGB 30.8 pg (26.0-34.0); Mean Corpuscular HGB Conc 34.4 g/dL (31.5-36.5); Mean Corpuscular Volume 90 fL (80-100); Mean Platelet Volume 8.7 fL (9.1-12.4); NEUTROPHILS ABSOLUTE AUTO 17.54 K/mm3 (1.96-9.15); NEUTROPHILS PERCENT AUTO 78 % (41-73); Platelet Count 473 K/mm3 (150-400); RDW Coefficient Variation 13.8 % (11.7-14.2); RDW Standard Deviation 44.8 fL (35.1-46.3); Red Blood Cell Count 4.25 M/mm3 (4.30-5.90); White Blood Cell Count 22.43 K/mm3 (4.00-11.30)
--- NOTE | 2020-07-13 06:14 | NUR ---
PT IS A/O ON BIPAP AT HS, 1LTR VIA N/C. UP TO RESTROOM WITH FWW, BLADDERSCAN POST VOID. IF SCAN GREATER THAN 450 MD HAS ORDERED STRAIGHT CATH. MEDICATED THIS SHIFT FOR SLEEP, POST VOID SCAN 306 THIS SHIFT.
[2020-07-13] MEDS ORDERED: PROBIOTIC1 EA13 PO (16:05)
--- NOTE | 2020-07-13 17:00 | NUR ---
DISCHARGE SUMMARY PT AxOx4. PLEASANT AND COOPERATIVE WITH CARE. PT DISCHARGING TODAY BACK HOME TO [facility]. PT ON 1L VIA N/C INTERMITTENTLY T/O THE DAY PRN. PT INDEPENDENT IN THE ROOM WITH FWW. REPORTS "FEELING BETTER TODAY." REPORTED MILD ANXIETY. MEDICATED PER EMAR. DISCHARGE INSTRUCTIONS DISCUSSED WITH PT, INCLUDING DC MEDS, FOLLOW UP APPOINTMENTS, O2 ORDERS, AND HOME HEALTH ORDERS. PATIENT VERBALIZES UNDERSTANDING. DENIES ANY FURTHER NEEDS/QUESTIONS AT THIS TIME. VITALS REVIEWED. PROPERTY STAFF ACCOUNTANT, NIC BARRIENTOS WORKING WITH [facility] FOR DC. DC PACKET SENT TO [facility]. TRANSPORT ARRANGED VIA [facility]. PT SAFELY ESCORTED OUT WITH [facility].
== END 2020-07-13 16:57 | disposition home health service (06) | DRG 871 ==
LOC: ER 19:13 → PCU 21:07 → MEDS 07-09 12:39 → ENPENDDIS 07-13 11:28 → MEDS 07-13 16:57
PROVIDERS: Emergency Medicine; Family Medicine; Internal Medicine; Nurse Practitioner Acute Care; ADMIT Internal Medicine
PROC: 5A09357 Assistance with Respiratory Ventilation, Less than 24 Consecutive Hours, Continuous Positive Airway Pressure (ICD-10-PCS; principal; 2020-06-30)
DX: A41.9 Sepsis, unspecified organism (principal); J18.9 Pneumonia, unspecified organism; J96.21 Acute and chronic respiratory failure with hypoxia; E43 Unspecified severe protein-calorie malnutrition; Z68.1 Body mass index [BMI] 19.9 or less, adult; Z20.822 Contact with and (suspected) exposure to COVID-19; R65.20 Severe sepsis without septic shock; J43.9 Emphysema, unspecified; R33.9 Retention of urine, unspecified; F41.9 Anxiety disorder, unspecified; R94.31 Abnormal electrocardiogram [ECG] [EKG]; N40.0 Benign prostatic hyperplasia without lower urinary tract symptoms; K59.09 Other constipation; R10.31 Right lower quadrant pain; D69.6 Thrombocytopenia, unspecified; K21.9 Gastro-esophageal reflux disease without esophagitis; G47.00 Insomnia, unspecified; Z79.52 Long term (current) use of systemic steroids; Z79.899 Other long term (current) drug therapy; Z85.828 Personal history of other malignant neoplasm of skin; Z98.890 Other specified postprocedural states; Z87.891 Personal history of nicotine dependence; Z99.81 Dependence on supplemental oxygen
CPT/HCPCS: 0241U; 36415; 36600; 51701; 51702; 71045; 80048; 80053; 80069; 81001; 82803; 83605; 83880; 84145; 84484; 85025; 87040; 87070; 87205; 93005; 93010; 94640; 94644; 94660; 94762; 96365; 96367; 96375; 97110; 97116; 97162; 97165; 97530; 97535; 99285-25; A9270; C1751; J1100; J1650; J2060; J2543; J2920; J2930; J3475; J7030

== ENCOUNTER 2020-07-18 19:22 | Inpatient (IN) | payer OTHER ==
[~2020-07-18] VITALS: Ht 175.3 cm; Wt 57.3 kg
[~2020-07-18 19:22] MED LIST changes: +PROBIOTIC1 EA13 PO
[2020-07-18 20:03] LABS: BASOPHILS ABSOLUTE AUTO 0.07 K/mm3 (0.00-0.23); BASOPHILS PERCENT AUTO 0 % (0-2); EOSINOPHILS ABSOLUTE AUTO 0.25 K/mm3 (0.00-0.68); EOSINOPHILS PERCENT AUTO 2 % (0-6); Hemoglobin 12.3 g/dL (13.5-17.5); IMMATURE GRAN ABSOLUTE AUTO 0.12 K/mm3 (0.00-0.10); IMMATURE GRAN PERCENT AUTO 1 % (0-1); LYMPHOCYTES ABSOLUTE AUTO 1.64 K/mm3 (0.84-5.20); LYMPHOCYTES PERCENT AUTO 10 % (21-46); MONOCYTES ABSOLUTE AUTO 1.49 K/mm3 (0.16-1.47); MONOCYTES PERCENT AUTO 9 % (4-13); Mean Corpuscular HGB 30.6 pg (26.0-34.0); Mean Corpuscular HGB Conc 34.2 g/dL (31.5-36.5); Mean Corpuscular Volume 90 fL (80-100); Mean Platelet Volume 8.6 fL (9.1-12.4); NEUTROPHILS ABSOLUTE AUTO 13.28 K/mm3 (1.96-9.15); NEUTROPHILS PERCENT AUTO 79 % (41-73); Platelet Count 543 K/mm3 (150-400); RDW Coefficient Variation 13.3 % (11.7-14.2); RDW Standard Deviation 43.9 fL (35.1-46.3); Red Blood Cell Count 4.02 M/mm3 (4.30-5.90); White Blood Cell Count 16.85 K/mm3 (4.00-11.30)
[2020-07-18 20:18] LABS: Alanine Aminotransfer (ALT/SGP 28 U/L (12-78); Albumin, Blood 2.7 g/dL (3.4-5.0); Albumin/Globulin Ratio 0.6 (0.8-1.8); Alk Phos 91 U/L (50-136); Anion Gap 5 mmol/L (6-16); Aspartate Aminotrans (AST/SGOT 16 U/L (12-37); Bilirubin, Total 0.2 mg/dL (0.1-1.0); Blood Urea Nitrogen 15 mg/dL (8-24); Bun/Creatinine Ratio 17.9 (12.0-20.0); CO2, Blood 28 mmol/L (21-32); Calcium, Blood 9.5 mg/dL (8.5-10.1); Chloride, Blood 105 mmol/L (98-108); Creatinine, Blood 0.84 mg/dL (0.60-1.20); Globulin, Blood 4.2 g/dL (2.2-4.0); Glomerular Filtration Rate >60 (60-); Glucose, Blood 183 mg/dL (70-99); Magnesium, Blood 1.9 mg/dL (1.6-2.4); Potassium, Blood 3.9 mmol/L (3.5-5.5); Sodium, Blood 138 mmol/L (136-145); Total Protein, Blood 6.9 g/dL (6.4-8.2); Troponin I <0.015 ng/mL (0.000-0.040)
[2020-07-18 20:19] LABS: Base Excess Venous 1.3 mmol/L; Bicarbonate Venous 25.3 mmol/L (24.0-30.0); PCO2 Venous 43.8 mmHg (38-42); PO2 Venous 133 mmHg (38-42); pH Blood Venous 7.39 (7.34-7.37)
[2020-07-18] MEDS ORDERED: ALBU90OI INH (21:51)
[2020-07-18] MEDS ORDERED: TIOT18 INH (21:52)
[2020-07-18] MEDS ORDERED: MELATONIN5 M1 PO (21:52)
[2020-07-18] MEDS ORDERED: TAMS.4ER PO (21:52)
[2020-07-18] MEDS ORDERED: MONT10T PO (21:53)
[2020-07-18] MEDS ORDERED: FLUT1DIS5 INH (21:54)
[2020-07-18] MEDS ORDERED: IPRAT-ALBUT 0.5-3 ML INH (21:54)
[2020-07-18] MEDS ORDERED: BISA10S PR (21:55)
[2020-07-18] MEDS ORDERED: DOCUZEN 8.6-501 EACH PO (21:55)
[2020-07-18] MEDS ORDERED: ACET500 PO (21:55)
[2020-07-18] MEDS ORDERED: MIRALAX17 GM PO (21:56)
[2020-07-18] MEDS ORDERED: FAMO20 PO (21:56)
[2020-07-18] MEDS ORDERED: LORA.5 PO (21:57)
[2020-07-18] MEDS ORDERED: PSEUDOEPHEDRINE30 M1 PO (21:58)
[2020-07-18] MEDS ORDERED: MUPIROCIN22 G2 TOP (21:58)
[2020-07-18] MEDS ORDERED: HYDPAM25 PO (22:00)
[2020-07-18 22:20] LABS: Source, Urine Catheter
[2020-07-18 22:23] LABS: Bilirubin, Urine Neg (Neg); Blood, Urine 5+ (Neg); Glucose Qualitative, Urine Neg (Neg); Ketones, Urine Neg (Neg); Leukocyte Esterase, Urine 3+ (Neg); Nitrite, Urine Neg (Neg); Protein, Urine 1+ (Neg); Specific Gravity, Urine 1.025 (1.003-1.022); Urobilinogen, Urine NORM (Normal)
[2020-07-18 22:30] LABS: Amorphous Mod (0-Heavy); Appearance, Urine Hazy (Clear); Bacteria Mod /hpf; Color, Urine Yellow (P-Yellow); Red Blood Cells, Urine 0-2 /hpf (0-2); Squamous Epithelial Cells Not Seen /hpf (Few); White Blood Cells, Urine TNTC /hpf (0-5)
[2020-07-19 01:57] LABS: BASOPHILS ABSOLUTE AUTO 0.05 K/mm3 (0.00-0.23); BASOPHILS PERCENT AUTO 0 % (0-2); EOSINOPHILS ABSOLUTE AUTO 0.01 K/mm3 (0.00-0.68); EOSINOPHILS PERCENT AUTO 0 % (0-6); Hematocrit 31.4 % (37.0-53.0); Hemoglobin 10.7 g/dL (13.5-17.5); IMMATURE GRAN ABSOLUTE AUTO 0.11 K/mm3 (0.00-0.10); IMMATURE GRAN PERCENT AUTO 1 % (0-1); LYMPHOCYTES ABSOLUTE AUTO 0.47 K/mm3 (0.84-5.20); LYMPHOCYTES PERCENT AUTO 3 % (21-46); MONOCYTES ABSOLUTE AUTO 0.11 K/mm3 (0.16-1.47); MONOCYTES PERCENT AUTO 1 % (4-13); Mean Corpuscular HGB Conc 34.1 g/dL (31.5-36.5); Mean Corpuscular Volume 91 fL (80-100); Mean Platelet Volume 8.5 fL (9.1-12.4); NEUTROPHILS ABSOLUTE AUTO 13.79 K/mm3 (1.96-9.15); NEUTROPHILS PERCENT AUTO 95 % (41-73); Platelet Count 461 K/mm3 (150-400); RDW Coefficient Variation 13.7 % (11.7-14.2); RDW Standard Deviation 45.3 fL (35.1-46.3); Red Blood Cell Count 3.45 M/mm3 (4.30-5.90); White Blood Cell Count 14.54 K/mm3 (4.00-11.30)
[2020-07-19 02:11] LABS: Anion Gap 4 mmol/L (6-16); Blood Urea Nitrogen 13 mg/dL (8-24); Bun/Creatinine Ratio 19.5 (12.0-20.0); CO2, Blood 28 mmol/L (21-32); Calcium, Blood 8.4 mg/dL (8.5-10.1); Chloride, Blood 108 mmol/L (98-108); Creatinine, Blood 0.67 mg/dL (0.60-1.20); Glomerular Filtration Rate >60 (60-); Glucose, Blood 140 mg/dL (70-99); Potassium, Blood 4.3 mmol/L (3.5-5.5); Sodium, Blood 140 mmol/L (136-145)
--- NOTE | 2020-07-19 05:22 | NUR ---
SHIFT SUMMARY PT RESTED WELL THORUGH THE NIGHT. ALERT AND ORIENTED - ABLE TO MAKE NEEDS KNOWN. COOPERATIVE WITH PLAN OF CARE. PT CAME UP FROM ED ON BIPAP, AND TOLERATING. SHORTLY AFTER GETTING SETTLED IN BED, PT WAS PLACED ON 3LNC - SATS >90%. TELE NSR. NO C/O CHEST PAIN. LUNG SOUND DIMINISHED AND COURSE. LACTIC READS 2.4 FROM ED - BOLUSED WITH NS, AND MAINTENANCE FLUIDS RUNNING @150ML/HR. PT PRETTY ADAMANT ABOUT RECEIVING AMBIEN - SAYS MELATONIN DOES NOT HELP IN HOSPITAL SETTING. ZENG IN PLACE - DRAINING TO GRAVITY, JACOB CARE PERFORMED. NO BM. NO C/O PAIN. VSS. CALL LIGHT WTIHIN REACH, BED IN LOWEST POSITION. WILL CONTINUE TO MONITOR.
--- NOTE | 2020-07-19 18:03 | NUR ---
SUMMARY PT RESTING IN BED. GETS SOB WITH ANY EXERTION INCLUDING CONVERSATION. SPO2 90-92% ON 2L NC. ABLE TO TOLERATE MEALS SLOWLY. PT USES PURSED LIP BREATHING PRN. NO CHANGES IN STATUS TODAY. USES CALL LIGHT APPROPRIATELY, NO SIGN OF DISTRESS.
--- NOTE | 2020-07-19 20:15 | NUR ---
ASSUMING CARE: PT SITTING AT THE SIDE OF THE BED, LEGS DANGLING. NOTABLE DYSPNEA WHEN SPEAKING. PT IS OPPOSITIONAL WITH RT & OTHER STAFF, REFUSING Tx & REFUSING SOME STAFF MEMEBERS TO ENTER HIS ROOM. PT IS OTHERWISE COOPERATIVE W/ THIS RN & AFTER SEVERAL MINS PT IS ABLE TO BE CONSOLED. RT IS AT BEDSIDE TO SET HIS HOME TRIOLOGY UP FOR BEDTIME. PT STS HE HAS NOT HAD MUCH SLEEP WHILE HOSPITALIZED & WOULD LIKE TO GO TO BED EARLY TONIGHT. WILL MEDICATE SHORTLY. WILL CONTINUE TO MONITOR & REPORT APPROPRIATE.
[2020-07-20 03:59] LABS: BASOPHILS ABSOLUTE AUTO 0.03 K/mm3 (0.00-0.23); BASOPHILS PERCENT AUTO 0 % (0-2); EOSINOPHILS PERCENT AUTO 0 % (0-6); Hematocrit 30.6 % (37.0-53.0); Hemoglobin 10.3 g/dL (13.5-17.5); IMMATURE GRAN ABSOLUTE AUTO 0.16 K/mm3 (0.00-0.10); IMMATURE GRAN PERCENT AUTO 1 % (0-1); LYMPHOCYTES ABSOLUTE AUTO 0.85 K/mm3 (0.84-5.20); LYMPHOCYTES PERCENT AUTO 4 % (21-46); MONOCYTES ABSOLUTE AUTO 0.54 K/mm3 (0.16-1.47); MONOCYTES PERCENT AUTO 3 % (4-13); Mean Corpuscular HGB 29.9 pg (26.0-34.0); Mean Corpuscular HGB Conc 33.7 g/dL (31.5-36.5); Mean Corpuscular Volume 89 fL (80-100); Mean Platelet Volume 8.6 fL (9.1-12.4); NEUTROPHILS ABSOLUTE AUTO 17.65 K/mm3 (1.96-9.15); NEUTROPHILS PERCENT AUTO 92 % (41-73); Platelet Count 529 K/mm3 (150-400); RDW Coefficient Variation 13.6 % (11.7-14.2); RDW Standard Deviation 44.5 fL (35.1-46.3); Red Blood Cell Count 3.44 M/mm3 (4.30-5.90); White Blood Cell Count 19.23 K/mm3 (4.00-11.30)
[2020-07-20 04:17] LABS: Anion Gap 2 mmol/L (6-16); Blood Urea Nitrogen 13 mg/dL (8-24); Bun/Creatinine Ratio 22.3 (12.0-20.0); CO2, Blood 29 mmol/L (21-32); Calcium, Blood 8.5 mg/dL (8.5-10.1); Chloride, Blood 110 mmol/L (98-108); Creatinine, Blood 0.58 mg/dL (0.60-1.20); Glomerular Filtration Rate >60 (60-); Glucose, Blood 129 mg/dL (70-99); Potassium, Blood 4.3 mmol/L (3.5-5.5); Sodium, Blood 141 mmol/L (136-145)
--- NOTE | 2020-07-20 06:32 | NUR ---
SHIFT SUMMARY: PT SLEPT WELL FOR THE MAJORITY OF THE NIGHT, AWAKING ONLY FOR PT CARE. BiPAP REMAINS IN PLACE & SPO2 MAINTAINING >90%. NO ACUTE NEG CHANGES THROUGHOUT SHIFT. WILL CONTINUE TO MONITOR UNTIL REPORT OFF TO ONCOMING RN.
--- NOTE | 2020-07-20 17:04 | NUR ---
PT STATUS CHANGED TO MEDICAL WITH NO TELE VITALS HRR 90'S SR, BP SYSTOLIC 120'S, SATS ABOVE 90% ON 2L OF O2 ALTERNATING TRILOGY BIPAP WITH 2L O2 BLEED, AFEBRILE. PT ALERT AND ORIENTED X4 AT BASELINE, DENIES ANY CHEST PAIN/PRESSURE. HAD SOME ANXIETY EPISODES X2 FOR THE SHIFT PT STATED MUCUS GETS STUCK IN HIS THROAT AND COULDN'T COUGH IT OUT. ATIVAN 0.25MG X1 GIVEN AND WAS EFFECTIVE PT WAS PUT ON HIS TRILOGY BIPAP AND GOT SOME REST. DR SCHWARTZ WAS CONSULTED FOR [facility] WAS ABLE TO COME BY AND SEE PT BEFORE PT WAS TRANSFERRED. NO OTHER ISSUES ENCOUNTERED. ALL BELONGINGS SENT WITH PT, ACCOMPANIED BY WHEELCHAIR FOR TRANSPORT.
--- NOTE | 2020-07-20 17:10 | NUR ---
REPORT GIVEN TO SHADI HOLLIS, PT TRANSFERRED TO ROOM 310.
--- NOTE | 2020-07-20 18:06 | NUR ---
1445 PT TRANSFERED FROM PCU TO MEDICAL FLOOR WITH HOME TRILOGY CPAP AND BELONGINGS.
--- NOTE | 2020-07-20 18:22 | NUR ---
Met with pt today, he was moved from PCU to Medical floor. He is extremely SOB, and is tripoding for the entire conversation. 02 on 2L. He states he lives alone in his apartment and has COPD. He states he's often in the ED for a "bout of pneumonia" related to the COPD, and that each time he comes to the hospital with respiratory illness, he loses a little bit of his respiratory function. He states he battles often with retaining CO2. He asked if I was visiting him because I though he was going to . I told him I am here for symptom managment, and asked him why he might think that is why I was visiting. He states, "Because I'm pretty worn out". He also told me he will not allow himself to before his elderly mother, as he feels this would break her heart and be "wrong". He states he's watched people of breathing problems and he's felt that feeling before, and he never wants to feel it again. We discussed what comfort care is, and how the use of medication can greatly alleviate air hunger in comfort care. He states that's what he wants, not to feeling suffocation, but then states he "just can't " before his mother does. We ended the visit for today on a good note, and he agrees to see me tomorrow. Plan for therapeutic listening, provide ongong gently education as needed.
--- NOTE | 2020-07-21 03:57 | NUR ---
SHIFT SUMMARY ADMITTED FOR PNEUMONIA. LIMITED CODE- INTUBATE ONLY. HX OF COPD. HOME TRILOGY @ PM. ZENG CATHETER IS PATENT. IV ANTIBIOTICS ARE SCHEDULED. LABILE MOODS. ALBUTEROL INHALER AT BEDSIDE. 1 ASSIST TO BSC DUE TO SOB/DYSPNEA WITH EXERTION
--- NOTE | 2020-07-21 17:46 | NUR ---
NO ACUTE CHANGES. PT HAS BEEN FRIENDLY THIS STAFF WITH NO OUTBURSTS. HE HAS BEEN COMPLIANT WITH ALL CARES. CALL LIGHT WITHIN REACH.
--- NOTE | 2020-07-21 18:47 | NUR ---
Met with pt along with Pt Advocate. We reveiwed goals of care, and pt maintains he is determined to outlive his mom. Gently informed him it is unlikely, as the COPD is end stage, and he is aware of this. However, he isn't willing to entertain any comfort measures at this time, even though he has stated his worst fear is suffocation. Will remain available to pt as needed.
--- NOTE | 2020-07-21 19:38 | NUR ---
ASSISTED BACK TO BED FROM THE BATHROOM. O2 PER NC. WAS ABLE TO AMBULATE WITH WALKER TO AND FROM BATHROOM. CURRENTLY SITTING IN BED WITH PERSONAL COMPUTER. CALL LIGHT IN REACH
--- NOTE | 2020-07-21 21:33 | NUR ---
PT MADE IT VERY CLEAR NO ENTRY IN TO ROOM "EVEN TO PEEK" FROM 11 PM TO 0400 AM DUE TO HX SLEEP DEPROVATION. SIGH POSTED ON DOOR WITH PT DEMAND. CALL LIGHT IN REACH. O2 PER NC, SOME SOB NOTED BUT SATS IN THE 90'S PER CONTINUOUS PULSE OX.
--- NOTE | 2020-07-22 03:47 | NUR ---
SHIFT SUMMARY HAS BEEN RESTING QUIETLY SINCE AROUND 2330. SCHEDULED MEDS WERE GIVEN PRIOR TO 2300 PER PT REQUEST SO HE COULD SLEEP UNINTERRUPTED. NO NOTED INTERRUPTIONS. CALL LIGHT IN REACH. O2 PER NC - SEE RT DOCUMENTATION FOR DETAILS.
[2020-07-22 07:35] LABS: Creatinine, Blood 0.69 mg/dL (0.60-1.20); Vancomycin, Trough 11.7 ug/mL (5.0-10.0)
[2020-07-22] MEDS ORDERED: Prednisone10 MG PO (10:40)
[2020-07-22] MEDS ORDERED: PROBIOTIC1 EA13 PO (10:41)
[2020-07-22] MEDS ORDERED: LEVFLO500 PO (10:41)
--- NOTE | 2020-07-22 13:26 | NUR ---
PT TO DISCHARGE BACK TO [facility]. IV REMOVED. NO SS OF INFECTION. PT HAD CATH BAG REPLACED WITH LEG BAG, STAFF HELPED WHERE HE WOULD ALLOW TO DRESS. MEDS FAXED TO [facility] THEY HANDLE HIS MEDS. PT IS AWAITING [facility] TO TRANSPORT HOME. THIS NURSE CALLED TO GIVE REPORT BUT THE NURSE WAS UNAVIALABLE. TALKED WITH THE THERMAL CUTTING TRACER MACHINE OPERATOR AND TOLD HER TO HAVE THE NURSE CALL ME IF SHE HAD ANY QUESTIONS.
== END 2020-07-22 14:09 | disposition home or self-care (01) | DRG 189 ==
LOC: ER 19:22 → MEDS 22:46 → PCU 22:46 → MEDS 07-20 16:40
PROVIDERS: Emergency Medicine; Internal Medicine; Internal Medicine Critical Care Medicine; ADMIT Internal Medicine
PROC: 5A09357 Assistance with Respiratory Ventilation, Less than 24 Consecutive Hours, Continuous Positive Airway Pressure (ICD-10-PCS; principal; 2020-07-18)
DX: J96.21 Acute and chronic respiratory failure with hypoxia (principal); E43 Unspecified severe protein-calorie malnutrition; Z68.1 Body mass index [BMI] 19.9 or less, adult; R64 Cachexia; J96.02 Acute respiratory failure with hypercapnia; J43.9 Emphysema, unspecified; N40.0 Benign prostatic hyperplasia without lower urinary tract symptoms; K59.09 Other constipation; K21.9 Gastro-esophageal reflux disease without esophagitis; F41.9 Anxiety disorder, unspecified; G47.00 Insomnia, unspecified; Z98.890 Other specified postprocedural states; Z99.81 Dependence on supplemental oxygen; Z79.899 Other long term (current) drug therapy; Z86.14 Personal history of Methicillin resistant Staphylococcus aureus infection; Z87.891 Personal history of nicotine dependence; Z85.828 Personal history of other malignant neoplasm of skin
CPT/HCPCS: 36415; 51702; 71045; 80048; 80053; 80202; 81001; 82565; 82803; 83605; 83735; 83880; 84145; 84484; 85025; 87040; 87086; 93005; 93010; 94640; 94644; 94660; 94664; 94760; 94762; 96365-59; 96375-59; 97110; 97116; 97162; 97530; 98960; 99285-25; A9270; J0456; J0696; J1650; J2185; J2930; J3370; J7030; J7050; J7512

== ENCOUNTER 2020-08-13 01:30 | Emergency (ER) | payer OTHER ==
[~2020-08-13] VITALS: Ht 175.3 cm; Wt 60.8 kg
[~2020-08-13 01:30] MED LIST changes: +ACET500 PO; +BISA10S PR; +DOCUZEN 8.6-501 EACH PO; +FLUT1DIS5 INH; +HYDPAM25 PO; +IPRAT-ALBUT 0.5-3 ML INH; +MELATONIN5 M1 PO; +MUPIROCIN22 G2 TOP; +PSEUDOEPHEDRINE30 M1 PO
[2020-08-13 02:57] LABS: BASOPHILS ABSOLUTE AUTO 0.08 K/mm3 (0.00-0.23); BASOPHILS PERCENT AUTO 1 % (0-2); EOSINOPHILS PERCENT AUTO 2 % (0-6); Hematocrit 42.4 % (37.0-53.0); Hemoglobin 14.2 g/dL (13.5-17.5); IMMATURE GRAN ABSOLUTE AUTO 0.15 K/mm3 (0.00-0.10); IMMATURE GRAN PERCENT AUTO 1 % (0-1); LYMPHOCYTES ABSOLUTE AUTO 1.66 K/mm3 (0.84-5.20); LYMPHOCYTES PERCENT AUTO 10 % (21-46); MONOCYTES ABSOLUTE AUTO 1.63 K/mm3 (0.16-1.47); MONOCYTES PERCENT AUTO 10 % (4-13); Mean Corpuscular HGB 30.5 pg (26.0-34.0); Mean Corpuscular HGB Conc 33.5 g/dL (31.5-36.5); Mean Corpuscular Volume 91 fL (80-100); Mean Platelet Volume 9.1 fL (9.1-12.4); NEUTROPHILS PERCENT AUTO 77 % (41-73); Platelet Count 402 K/mm3 (150-400); RDW Coefficient Variation 14.7 % (11.7-14.2); RDW Standard Deviation 49.1 fL (35.1-46.3); Red Blood Cell Count 4.65 M/mm3 (4.30-5.90); White Blood Cell Count 16.52 K/mm3 (4.00-11.30)
[2020-08-13 03:01] LABS: PCO2 Arterial 49.6 mmHg (35-45); PO2 Arterial 76.2 mmHg (80-100); pH Blood Arterial 7.39 (7.35-7.45)
[2020-08-13 03:22] LABS: Alanine Aminotransfer (ALT/SGP 32 U/L (12-78); Albumin, Blood 3.5 g/dL (3.4-5.0); Albumin/Globulin Ratio 0.9 (0.8-1.8); Alk Phos 69 U/L (50-136); Anion Gap 6 mmol/L (6-16); Aspartate Aminotrans (AST/SGOT 20 U/L (12-37); Bilirubin, Total 0.5 mg/dL (0.1-1.0); Blood Urea Nitrogen 13 mg/dL (8-24); Bun/Creatinine Ratio 13.7 (12.0-20.0); CO2, Blood 33 mmol/L (21-32); Calcium, Blood 10.1 mg/dL (8.5-10.1); Chloride, Blood 98 mmol/L (98-108); Creatinine, Blood 0.95 mg/dL (0.60-1.20); Globulin, Blood 3.8 g/dL (2.2-4.0); Glomerular Filtration Rate >60 (60-); Glucose, Blood 101 mg/dL (70-99); Magnesium, Blood 1.7 mg/dL (1.6-2.4); Potassium, Blood 3.7 mmol/L (3.5-5.5); Sodium, Blood 137 mmol/L (136-145); Total Protein, Blood 7.3 g/dL (6.4-8.2); Troponin I <0.015 ng/mL (0.000-0.040)
== END 2020-08-13 07:33 | disposition left against medical advice (07) ==
LOC: ER 01:30 → ICUW 04:31 → ER 04:31 → ICUW 08:00
PROVIDERS: Emergency Medicine
DX: J96.00 Acute respiratory failure, unspecified whether with hypoxia or hypercapnia (principal); Z79.899 Other long term (current) drug therapy; J44.9 Chronic obstructive pulmonary disease, unspecified; Z87.891 Personal history of nicotine dependence
CPT/HCPCS: 36600; 71045; 80053; 82803; 83735; 83880; 84100; 84145; 84484; 85025; 85379; 93005; 93010; 94644; 94660; 96365; 96375; 99285-25; A9270; J1956; J2930

== ENCOUNTER 2021-01-07 10:24 | Emergency (ER) | payer OTHER ==
[~2021-01-07] VITALS: Ht 175.3 cm; Wt 55.4 kg
[2021-01-07] MEDS ORDERED: FURO20 PO (10:51)
[2021-01-07] MEDS ORDERED: FINA5 PO (10:52)
[2021-01-07] MEDS ORDERED: POTA10T PO (10:52)
[2021-01-07 11:14] LABS: BASOPHILS ABSOLUTE AUTO 0.13 K/mm3 (0.00-0.23); BASOPHILS PERCENT AUTO 1 % (0-2); EOSINOPHILS ABSOLUTE AUTO 0.51 K/mm3 (0.00-0.68); EOSINOPHILS PERCENT AUTO 4 % (0-6); Hematocrit 42.1 % (37.0-53.0); IMMATURE GRAN ABSOLUTE AUTO 0.05 K/mm3 (0.00-0.10); IMMATURE GRAN PERCENT AUTO 0 % (0-1); LYMPHOCYTES ABSOLUTE AUTO 1.79 K/mm3 (0.84-5.20); LYMPHOCYTES PERCENT AUTO 14 % (21-46); MONOCYTES ABSOLUTE AUTO 1.38 K/mm3 (0.16-1.47); MONOCYTES PERCENT AUTO 11 % (4-13); Mean Corpuscular HGB 29.9 pg (26.0-34.0); Mean Corpuscular HGB Conc 33.3 g/dL (31.5-36.5); Mean Corpuscular Volume 90 fL (80-100); Mean Platelet Volume 8.9 fL (9.1-12.4); NEUTROPHILS ABSOLUTE AUTO 9.28 K/mm3 (1.96-9.15); NEUTROPHILS PERCENT AUTO 71 % (41-73); Platelet Count 693 K/mm3 (150-400); RDW Coefficient Variation 13.7 % (11.7-14.2); RDW Standard Deviation 44.9 fL (35.1-46.3); Red Blood Cell Count 4.69 M/mm3 (4.30-5.90); White Blood Cell Count 13.14 K/mm3 (4.00-11.30)
[2021-01-07 11:26] LABS: Base Excess Venous 8.3 mmol/L; Bicarbonate Venous 29.2 mmol/L (24.0-30.0); PCO2 Venous 65 mmHg (38-42); PO2 Venous 39.5 mmHg (38-42); pH Blood Venous 7.33 (7.34-7.37)
[2021-01-07 11:32] LABS: Anion Gap 1 mmol/L (6-16); Blood Urea Nitrogen 11 mg/dL (8-24); Bun/Creatinine Ratio 12.5 (12.0-20.0); CO2, Blood 34 mmol/L (21-32); Calcium, Blood 10.2 mg/dL (8.5-10.1); Chloride, Blood 104 mmol/L (98-108); Creatinine, Blood 0.88 mg/dL (0.60-1.20); Glomerular Filtration Rate >60 (60-); Glucose, Blood 96 mg/dL (70-99); Potassium, Blood 4.7 mmol/L (3.5-5.5); Sodium, Blood 139 mmol/L (136-145); Troponin I <0.015 ng/mL (0.000-0.040)
[2021-01-07] MEDS ORDERED: DOXY100 PO (13:12)
[2021-01-07] MEDS ORDERED: MAGCIT300 PO (13:12)
== END 2021-01-07 13:54 | disposition home or self-care (01) ==
LOC: ER 10:24
PROVIDERS: Student in an Organized Health Care Education/Training Program
DX: J44.1 Chronic obstructive pulmonary disease with (acute) exacerbation (principal); K59.00 Constipation, unspecified; Z79.899 Other long term (current) drug therapy
CPT/HCPCS: 36415; 71046; 80048; 82803; 83735; 84484; 85025; 93005; 93010; 94644; 96374; 99285-25; A9270; J1885; J7030

== ENCOUNTER 2021-01-15 09:05 | Emergency (ER) | payer OTHER ==
[~2021-01-15] VITALS: Ht 175.3 cm; Wt 54.0 kg
[~2021-01-15 09:05] MED LIST changes: +FINA5 PO; +FURO20 PO; +MAGCIT300 PO; +POTA10T PO
[2021-01-15 09:24] LABS: BASOPHILS ABSOLUTE AUTO 0.18 K/mm3 (0.00-0.23); BASOPHILS PERCENT AUTO 1 % (0-2); EOSINOPHILS PERCENT AUTO 3 % (0-6); Hematocrit 43.3 % (37.0-53.0); Hemoglobin 14.5 g/dL (13.5-17.5); IMMATURE GRAN ABSOLUTE AUTO 0.06 K/mm3 (0.00-0.10); IMMATURE GRAN PERCENT AUTO 1 % (0-1); LYMPHOCYTES ABSOLUTE AUTO 2.04 K/mm3 (0.84-5.20); LYMPHOCYTES PERCENT AUTO 16 % (21-46); MONOCYTES ABSOLUTE AUTO 1.43 K/mm3 (0.16-1.47); MONOCYTES PERCENT AUTO 11 % (4-13); Mean Corpuscular HGB 29.7 pg (26.0-34.0); Mean Corpuscular HGB Conc 33.5 g/dL (31.5-36.5); Mean Corpuscular Volume 89 fL (80-100); Mean Platelet Volume 8.7 fL (9.1-12.4); NEUTROPHILS ABSOLUTE AUTO 8.97 K/mm3 (1.96-9.15); NEUTROPHILS PERCENT AUTO 69 % (41-73); Platelet Count 702 K/mm3 (150-400); RDW Coefficient Variation 13.5 % (11.7-14.2); RDW Standard Deviation 44.4 fL (35.1-46.3); Red Blood Cell Count 4.89 M/mm3 (4.30-5.90); White Blood Cell Count 13.08 K/mm3 (4.00-11.30)
[2021-01-15 09:52] LABS: Alanine Aminotransfer (ALT/SGP 23 U/L (12-78); Albumin, Blood 3.4 g/dL (3.4-5.0); Albumin/Globulin Ratio 0.9 (0.8-1.8); Alk Phos 76 U/L (50-136); Anion Gap 3 mmol/L (6-16); Aspartate Aminotrans (AST/SGOT 18 U/L (12-37); Bilirubin, Total 0.4 mg/dL (0.1-1.0); Blood Urea Nitrogen 13 mg/dL (8-24); Bun/Creatinine Ratio 14.6 (12.0-20.0); CO2, Blood 33 mmol/L (21-32); Calcium, Blood 10.2 mg/dL (8.5-10.1); Chloride, Blood 102 mmol/L (98-108); Creatinine, Blood 0.89 mg/dL (0.60-1.20); Globulin, Blood 3.9 g/dL (2.2-4.0); Glomerular Filtration Rate >60 (60-); Glucose, Blood 97 mg/dL (70-99); Potassium, Blood 4.2 mmol/L (3.5-5.5); Sodium, Blood 138 mmol/L (136-145); Total Protein, Blood 7.3 g/dL (6.4-8.2); Troponin I <0.015 ng/mL (0.000-0.040)
[2021-01-15] MEDS ORDERED: LISI5 PO (09:56)
[2021-01-15] MEDS ORDERED: FLUT1DIS8 INH (10:00)
[2021-01-15] MEDS ORDERED: DOCU100 PO (10:01)
== END 2021-01-15 12:35 | disposition home or self-care (01) ==
LOC: ER 09:05
PROVIDERS: Emergency Medicine
DX: J44.9 Chronic obstructive pulmonary disease, unspecified (principal); Z88.8 Allergy status to other drugs, medicaments and biological substances; Z79.899 Other long term (current) drug therapy; Z99.81 Dependence on supplemental oxygen
CPT/HCPCS: 51701; 71045; 71260; 80053; 84484; 85025; 93005; 93010; 99285-25; Q9967

== ENCOUNTER 2021-02-20 03:48 | Inpatient (IN) | payer OTHER ==
[~2021-02-20] VITALS: Ht 175.3 cm; Wt 53.1 kg
[~2021-02-20 03:48] MED LIST changes: +LISI5 PO
[2021-02-20 04:21] LABS: BASOPHILS ABSOLUTE AUTO 0.12 K/mm3 (0.00-0.23); BASOPHILS PERCENT AUTO 1 % (0-2); EOSINOPHILS ABSOLUTE AUTO 0.68 K/mm3 (0.00-0.68); EOSINOPHILS PERCENT AUTO 5 % (0-6); Hematocrit 40.6 % (37.0-53.0); Hemoglobin 13.5 g/dL (13.5-17.5); IMMATURE GRAN ABSOLUTE AUTO 0.05 K/mm3 (0.00-0.10); IMMATURE GRAN PERCENT AUTO 0 % (0-1); LYMPHOCYTES ABSOLUTE AUTO 1.73 K/mm3 (0.84-5.20); LYMPHOCYTES PERCENT AUTO 13 % (21-46); MONOCYTES PERCENT AUTO 11 % (4-13); Mean Corpuscular HGB 29.7 pg (26.0-34.0); Mean Corpuscular HGB Conc 33.3 g/dL (31.5-36.5); Mean Corpuscular Volume 89 fL (80-100); Mean Platelet Volume 8.8 fL (9.1-12.4); NEUTROPHILS ABSOLUTE AUTO 8.93 K/mm3 (1.96-9.15); NEUTROPHILS PERCENT AUTO 69 % (41-73); Platelet Count 455 K/mm3 (150-400); RDW Coefficient Variation 14.6 % (11.7-14.2); RDW Standard Deviation 47.5 fL (35.1-46.3); Red Blood Cell Count 4.54 M/mm3 (4.30-5.90); White Blood Cell Count 12.91 K/mm3 (4.00-11.30)
[2021-02-20 04:40] LABS: Alanine Aminotransfer (ALT/SGP 22 U/L (12-78); Albumin, Blood 3.2 g/dL (3.4-5.0); Albumin/Globulin Ratio 0.9 (0.8-1.8); Alk Phos 64 U/L (50-136); Anion Gap 3 mmol/L (6-16); Aspartate Aminotrans (AST/SGOT 10 U/L (12-37); Bilirubin, Total 0.5 mg/dL (0.1-1.0); Blood Urea Nitrogen 14 mg/dL (8-24); CO2, Blood 30 mmol/L (21-32); Calcium, Blood 9.5 mg/dL (8.5-10.1); Chloride, Blood 104 mmol/L (98-108); Creatinine, Blood 0.93 mg/dL (0.60-1.20); Globulin, Blood 3.6 g/dL (2.2-4.0); Glomerular Filtration Rate >60 (60-); Glucose, Blood 102 mg/dL (70-99); Sodium, Blood 137 mmol/L (136-145); Total Protein, Blood 6.8 g/dL (6.4-8.2); Troponin I <0.015 ng/mL (0.000-0.040)
[2021-02-20 06:48] LABS: Influenza A, PCR NEGATIVE (NEGATIVE); Influenza B, PCR NEGATIVE (NEGATIVE); Resp Syncytial Virus, PCR NEGATIVE (NEGATIVE); SARS-Cov-2 (COVID-19) PCR, MMC NEGATIVE (NEGATIVE)
[2021-02-20] MEDS ORDERED: LORA.5 PO (11:25)
[2021-02-20 14:55] LABS: Source, Urine Catheter
[2021-02-20 15:02] LABS: Appearance, Urine Clear (Clear); Bilirubin, Urine Neg (Neg); Blood, Urine Neg (Neg); Color, Urine Yellow (P-Yellow); Glucose Qualitative, Urine Neg (Neg); Ketones, Urine Neg (Neg); Leukocyte Esterase, Urine Neg (Neg); Nitrite, Urine Neg (Neg); Protein, Urine Neg (Neg); Specific Gravity, Urine 1.015 (1.003-1.022); Urobilinogen, Urine NORM (Normal)
--- NOTE | 2021-02-20 17:33 | NUR ---
Met with Mr Morgan today to discuss code status. He chose DNR. His breathing is worse than prior hospitalization in June of this year. He has been diagnoses with End Stage COPD, but he is not willing to discuss hospice. Even though he is pausing between each syllable that he speaks. He also reports he is losing his medicaid, as he remains "too independent" to live in an assisted living facility, according to Bill. He states he knows he will and quickly if he has to live on his own, and cook for himself and do laundry. Plan to speak to Care management dept about this on monday, as that situation seems it needs to be handled. Pt also makes it clear that he did not wish to be seen in this hospital, prefer to be seen in [place], and states he has been going to [facility] over the past few months. Pt also states he will not allow Dr. Valentine "anywhere near him". He states he would padmaja him. He requested we place a sign on his door and do not desturb him from 11 pm to 7am. Plan to see pt again tomorrow, to possibly discuss what comfort care would look like. He wasn't interested in talking about this last time he was here. However, he has declined significantly since he was last admitted here. I attempted to reach his mom too, but her voicemail is not currently set up.
--- NOTE | 2021-02-20 18:15 | NUR ---
PT ADMITTED TO MEDICAL FLOOR THIS MORNING,PT BLE LUNGS SOUNDS IS DIMINISHED.PT ON 2L NC, SATS IN HIGH 90S,PT GET SHORTNESS OF BREATH WITH MOVEMENT. PT REFUSED TELE NOTIFIED.PT HAVE ZENG DRAINAGE TO GRAVITY ,NS RUNNING AT 75ML/HR.PT IN BED WITH HEAD OF BED ELEVATED 90 DEGREES,PT C/O PAIN MEDICATED PER EMAR.BED IN LOW POSITION,CALL LIGHT IN REACH WILL CONTINUE TO MONITOR.PATIENT REQUEST NOT TO BE DISTURBE T/O THE NIGHT.
--- NOTE | 2021-02-20 20:38 | NUR ---
PT'S WISHES IS TO BE DNR. [facility] ALREADY SIGNED AND FILLED OUT 02/20/21 DURING DAY SHIFT. CODE STATUS IS DNR.
--- NOTE | 2021-02-20 21:37 | NUR ---
PT GETS AGITATED EASILY AND IS IMPULSIVE. PT REQUESTED NOT TO BE WOKEN UP BETWEEN THE TIMES OF 2300 TO 0700. PT MADE AWARE THAT VITALS ARE TAKEN ANYTIME BETWEEN [id number] AM BEFORE NOC SHIFT ENDS. PT REFUSES TO HAVE MORNING VITALS DONE, HE STATES HE ONLY WANTS IT DONE RIGHT BEFORE MORNING MEDS. RN ALSO MADE AWARE THAT LAB DRAW IS AROUND [id number]. PT SAYS "THE EARILEST THEY CAN COME TO DRAW MY BLOOD IS AT 5:00AM". PT EDUCATED ON POSSIBLE CONSEQUNCES OF NOT HAVING ROUTINE VITALS TAKEN. CALL LIGHT WITHIN REACH, WILL CONTINUE TO MONITOR.
[2021-02-21 05:04] LABS: BASOPHILS ABSOLUTE AUTO 0.01 K/mm3 (0.00-0.23); BASOPHILS PERCENT AUTO 0 % (0-2); EOSINOPHILS PERCENT AUTO 0 % (0-6); Hematocrit 36.2 % (37.0-53.0); Hemoglobin 12.2 g/dL (13.5-17.5); IMMATURE GRAN ABSOLUTE AUTO 0.04 K/mm3 (0.00-0.10); IMMATURE GRAN PERCENT AUTO 0 % (0-1); LYMPHOCYTES ABSOLUTE AUTO 0.82 K/mm3 (0.84-5.20); LYMPHOCYTES PERCENT AUTO 9 % (21-46); MONOCYTES ABSOLUTE AUTO 0.37 K/mm3 (0.16-1.47); MONOCYTES PERCENT AUTO 4 % (4-13); Mean Corpuscular HGB 29.8 pg (26.0-34.0); Mean Corpuscular HGB Conc 33.7 g/dL (31.5-36.5); Mean Corpuscular Volume 89 fL (80-100); NEUTROPHILS ABSOLUTE AUTO 8.37 K/mm3 (1.96-9.15); NEUTROPHILS PERCENT AUTO 87 % (41-73); Platelet Count 455 K/mm3 (150-400); RDW Coefficient Variation 14.9 % (11.7-14.2); RDW Standard Deviation 47.9 fL (35.1-46.3); Red Blood Cell Count 4.09 M/mm3 (4.30-5.90); White Blood Cell Count 9.61 K/mm3 (4.00-11.30)
[2021-02-21 05:23] LABS: Alanine Aminotransfer (ALT/SGP 17 U/L (12-78); Albumin, Blood 2.5 g/dL (3.4-5.0); Albumin/Globulin Ratio 0.7 (0.8-1.8); Alk Phos 53 U/L (50-136); Anion Gap 2 mmol/L (6-16); Aspartate Aminotrans (AST/SGOT 11 U/L (12-37); Bilirubin, Total 0.2 mg/dL (0.1-1.0); Blood Urea Nitrogen 16 mg/dL (8-24); Bun/Creatinine Ratio 21.5 (12.0-20.0); CO2, Blood 27 mmol/L (21-32); Calcium, Blood 9.1 mg/dL (8.5-10.1); Chloride, Blood 108 mmol/L (98-108); Creatinine, Blood 0.75 mg/dL (0.60-1.20); Globulin, Blood 3.6 g/dL (2.2-4.0); Glomerular Filtration Rate >60 (60-); Glucose, Blood 151 mg/dL (70-99); Magnesium, Blood 1.8 mg/dL (1.6-2.4); Potassium, Blood 4.4 mmol/L (3.5-5.5); Sodium, Blood 137 mmol/L (136-145); Total Protein, Blood 6.1 g/dL (6.4-8.2); Troponin I <0.015 ng/mL (0.000-0.040)
--- NOTE | 2021-02-21 05:45 | NUR ---
AGRICULTURAL PLOW OPERATOR SUMMARY PT A/O X4. PT'S EMOTIONS ARE IMPULSIVE AND EASILY IRRITATED. PT AGREED TO HAVING VITALS TAKEN THIS MORNING. BIPAP AT NIGHT WITH 2L BLEED IN SATTING IN THE HIGH 90'S. PT WEARS 2L VIA NC DURING THE DAY. WHEN HANGING A NEW BAG OF NORMAL SALINE, PT STATED "I DON'T WANT FLUIDS RUNNING FOR TONIGHT BECAUSE I DON'T WANT TO BE WOKEN UP FROM THE IV MACHINE SOUND". PT ROLLS HIS EYES A LOT IN ANNOYANCE WHEN COMMUNICATING WITH STAFF. CONTINUES TO REFUSE TO WEAR TELE. VITALS STABLE. ZENG PATENT AND DRAINING TO GRAVITY. CALL LIGHT WITHIN REACH, WILL CONTINUE TO MONITOR.
--- NOTE | 2021-02-21 08:00 | NUR ---
Pt is angry seemingly about everything, attempted to assist him in comfort, he did allow assessment, he is a/ox3, follows commands, lungs are tight and very dim t/o, currently on his home o2 of 2 liters via n/c, resp even some laboring, no cough noted, hrr, no edema noted, ppp+2, cap refill <3 sec, vs stable, afebrile, iv site is clear and patent, infusing ns as ordered, btx4, abd flat soft nontender, voids via mirza cath, skin c/w/d, maew, activity intolerance due to resp work, nicki, call light in reach.
--- NOTE | 2021-02-21 10:49 | NUR ---
I am familiar with this pt, and today we had a very honest discussion regarding his health, in particular his breathing. He is dyspneic, and keeps his head elevated at all times. He uses pursed lip breathing, and respirations are 28 per minute. He is so short of breath, he can only speak 1 to 2 words per breath. His skin is ashen, and he is extremely thin, as he expends most of his energy on breathing. This morning, pt was arguing with the bedside RN Adela regarding taking medications. I asked him what is making him feel angry, and he just stated he would like to be at [facility]. I asked him what they might do that we cannot, and he didn't have any answer. I asked him if he understood how severe his COPD is, and mentioned it is end-stage. He states he does know that, but he states as always he will not let go because he wants to outlive his mother. I gently told him it is highly unlikely he will outlive his mother, as his lung function is 20-25%. He began to get tears in his eyes, but was listening. I asked him if he had begun to consider comfort care, and he states he really hasn't. I explained that air hunger medication would drastically improve his quality of life, or at the very least, help with the air hunger he continually experiences. He states he does want relief from it, and would like to try the medication. I explained it was morphine liquid, called "Roxanol", and that we would start with a very small dose to see how he tolerates it. He is agreeable to this. After a discussion with Dr. Mejia, we agreed to begin pt on roxanol to treat for air hunger. Pt is aware, and remains agreeable. Plan to work closely with bedside RN and pt to assess how well he tolerates it and if it makes a difference for him.
--- NOTE | 2021-02-21 19:25 | NUR ---
pt has remained angry all day. he did take the roxanol twice, second time he was given 10mgs, this worked better for him, he wore his bipap the second half of the day, reported his pain is doing better in the right chest, wasnt sure how his breathing was doing as he was on bipap, call light in reach.
--- NOTE | 2021-02-22 04:20 | NUR ---
SHIFT SUMMARY PT ALERT AND ORIENTED. TAKE HIS MEDS DURING SHIFT. HE REQUEST DO NOT GET DISTURB DURING HIS SLEEPING TIME. GET ANGRY WHEN DOOR OPEN. VS WHITIN NORMAL RANGE. REFUSED SOME CARE. ZENG IN PLACE. HE SHOWED ME THAT HE KNOWS HOW TO USE THE CALL LIGHT. KEEP MONITORING
[2021-02-22 08:57] LABS: BASOPHILS ABSOLUTE AUTO 0.02 K/mm3 (0.00-0.23); BASOPHILS PERCENT AUTO 0 % (0-2); EOSINOPHILS PERCENT AUTO 0 % (0-6); Hematocrit 38.5 % (37.0-53.0); Hemoglobin 12.9 g/dL (13.5-17.5); IMMATURE GRAN ABSOLUTE AUTO 0.07 K/mm3 (0.00-0.10); IMMATURE GRAN PERCENT AUTO 1 % (0-1); LYMPHOCYTES ABSOLUTE AUTO 1.22 K/mm3 (0.84-5.20); LYMPHOCYTES PERCENT AUTO 9 % (21-46); MONOCYTES ABSOLUTE AUTO 0.97 K/mm3 (0.16-1.47); MONOCYTES PERCENT AUTO 7 % (4-13); Mean Corpuscular HGB 29.9 pg (26.0-34.0); Mean Corpuscular HGB Conc 33.5 g/dL (31.5-36.5); Mean Corpuscular Volume 89 fL (80-100); Mean Platelet Volume 8.8 fL (9.1-12.4); NEUTROPHILS ABSOLUTE AUTO 11.57 K/mm3 (1.96-9.15); NEUTROPHILS PERCENT AUTO 84 % (41-73); Platelet Count 485 K/mm3 (150-400); RDW Coefficient Variation 15.2 % (11.7-14.2); RDW Standard Deviation 50.4 fL (35.1-46.3); Red Blood Cell Count 4.32 M/mm3 (4.30-5.90); White Blood Cell Count 13.85 K/mm3 (4.00-11.30)
[2021-02-22 09:14] LABS: Anion Gap 4 mmol/L (6-16); Blood Urea Nitrogen 19 mg/dL (8-24); Bun/Creatinine Ratio 27.6 (12.0-20.0); CO2, Blood 29 mmol/L (21-32); Calcium, Blood 9.6 mg/dL (8.5-10.1); Chloride, Blood 107 mmol/L (98-108); Creatinine, Blood 0.69 mg/dL (0.60-1.20); Glomerular Filtration Rate >60 (60-); Glucose, Blood 109 mg/dL (70-99); Potassium, Blood 4.4 mmol/L (3.5-5.5); Sodium, Blood 140 mmol/L (136-145)
--- NOTE | 2021-02-22 17:22 | NUR ---
SHIFT SUMMARY PATIENT ALERT AND ORIENTED THIS SHIFT. PATIENT REMAINS SOB, ON 2L O2, SATS REMAIN IN THE LOW TO MID 90S. PATIENT STATES HE WISHES TO ONLY BE CHECKED ON WHEN HE USES HIS CALL LIGHT. PATIENT SITTING UP IN BED MUCH OF THIS SHIFT. PATIENT INDEPENDENT TO THE BATHROOM. PATIENT FRUSTRATED WITH HEALTH SITUATION, BUT COMPLIANT WITH CARE. IV SITE ROTATED PER PATIENTS REQUEST FOR PATIENT COMFORT. PATIENT CURRENTLY SITTING UP IN BED WATCHING VIDEOS ON HIS LAPTOP.
--- NOTE | 2021-02-23 03:26 | NUR ---
HOLE DIGGER TRUCK DRIVER SUMMARY PATIENT HAD A FAIAR SHIFT. HE HAD HIS MEDS. AND VITALS ARE STABLE. NO FRESH COM[LAINT. HE HAD HIS CPAP OVERNIGHT. WILL CONTINUE TO MONITOR THE PATIENT.
--- NOTE | 2021-02-23 17:06 | NUR ---
SHIFT SUMMARY PATIENT ALERT AND ORIENTED THIS SHIFT. PATIENT MORE CALM AND COMPLIANT WITH CARE THIS SHIFT. PATIENT STATES FEELING BETTER AFTER GETTING A GOOD NIGHT REST. NO ACUTE CHANGES THIS SHIFT. PATIENT UP WITH SBA TO THE BATHROOM. PATIENT REMAINS ON 2L O2. PATIENT CONTINUES TO REQUEST BEING LEFT ALONE UNLESS NECESSARY OR HE CALLS. PATIENT CURRENTLY SITTING UP IN BED WATCHING VIDEOS ON HIS LAPTOP.
--- NOTE | 2021-02-23 17:40 | NUR ---
Supportive visit this afternonn. Pt resting in bed upon arrival. Offered therapeutic listening as Pt reports plan to only accept Roxanol if absolutely necassary. Listened to concerns and addressed misconceptions. Continued therapeutic listening. Encouraged Pt to consider self reflexion to assist with finding some peace. Ended visit to allow Pt to rest. Palliative Care will remain available.
--- NOTE | 2021-02-24 06:22 | NUR ---
PT RESTING IN BED. REFUSED AM VITAL SIGNS. ATIVAN GIVEN PRN FOR ANXIETY. USES BIPAP AT HS. SAT 95% ON O2 2L NC. REFUSED SALINE LOCK AND IVF. CALL LIGHT WITHIN REACH. ENCOURAGE TO CALL FOR ASSISTANCE IF NEEDED.
--- NOTE | 2021-02-24 16:12 | NUR ---
Spiritual care visit conducted. Patient allowed for a short visit and a prayer. Which I gladly provided. Patient was not in a good place for conversation but voices appreciation for the prayer.
--- NOTE | 2021-02-24 18:43 | NUR ---
PT ALERT ORIENTED X 4,PT IS VERY UNCOOPERATIVE WITH STAFF.PT REFUSED NS,PT LUNGS DIMINISHED BLE T/O WILLIAM.PT HAVE SOB WITH EXERTION AND ALSO AT REST PT C/O OF,WANTED DANIELLE.MEDICATED PER EMAR.PT ZENG INTACT DRAINAGE TO GRAVITY. PT HAVE CONTINOUS PULSE OXIMETRY,PT ON 2L NC SATS IN 90S,PT IN BED WANT TO BE LEFT ALONE,CALL LIGHT IN REACH WILL CONTIINUE TO MONITOR.
--- NOTE | 2021-02-25 06:30 | NUR ---
SHIFT SUMMARY PATIENT HAD NO ACUTE CHANGES OBSERVED. ON 2L O2 NC AND BIPAP AT NIGHT. SOB W/EXERTION. ZENG PATENT AND DRAINING. DENIES CHEST PAIN AND N/V. VSS/AFEBRILE. PIV REMAINS INTACT. COOPERATIVE WITH CARE. WCTM.
[2021-02-25 09:37] LABS: BASOPHILS ABSOLUTE AUTO 0.03 K/mm3 (0.00-0.23); BASOPHILS PERCENT AUTO 0 % (0-2); EOSINOPHILS PERCENT AUTO 1 % (0-6); Hematocrit 42.2 % (37.0-53.0); IMMATURE GRAN ABSOLUTE AUTO 0.11 K/mm3 (0.00-0.10); IMMATURE GRAN PERCENT AUTO 1 % (0-1); LYMPHOCYTES ABSOLUTE AUTO 2.96 K/mm3 (0.84-5.20); LYMPHOCYTES PERCENT AUTO 23 % (21-46); MONOCYTES ABSOLUTE AUTO 0.34 K/mm3 (0.16-1.47); MONOCYTES PERCENT AUTO 3 % (4-13); Mean Corpuscular HGB 29.5 pg (26.0-34.0); Mean Corpuscular HGB Conc 33.2 g/dL (31.5-36.5); Mean Corpuscular Volume 89 fL (80-100); NEUTROPHILS ABSOLUTE AUTO 9.52 K/mm3 (1.96-9.15); NEUTROPHILS PERCENT AUTO 73 % (41-73); Platelet Count 460 K/mm3 (150-400); RDW Coefficient Variation 14.5 % (11.7-14.2); RDW Standard Deviation 47.2 fL (35.1-46.3); Red Blood Cell Count 4.74 M/mm3 (4.30-5.90); White Blood Cell Count 13.06 K/mm3 (4.00-11.30)
[2021-02-25 10:44] LABS: Anion Gap 2 mmol/L (6-16); Blood Urea Nitrogen 23 mg/dL (8-24); Bun/Creatinine Ratio 29.9 (12.0-20.0); CO2, Blood 36 mmol/L (21-32); Calcium, Blood 9.7 mg/dL (8.5-10.1); Chloride, Blood 100 mmol/L (98-108); Creatinine, Blood 0.77 mg/dL (0.60-1.20); Glomerular Filtration Rate >60 (60-); Glucose, Blood 110 mg/dL (70-99); Potassium, Blood 3.7 mmol/L (3.5-5.5); Sodium, Blood 138 mmol/L (136-145)
--- NOTE | 2021-02-25 18:44 | NUR ---
pt has had an uneventful day, no needs or complaints, he was cooperative through out the day. no acute changes call light in reach.
--- NOTE | 2021-02-26 04:42 | NUR ---
SHIFT SUMMARY PATIENT HAD NO ACUTE CHANGES OBSERVED. AXO X 4 AND INDEPENDENT IN ROOM. WATCHING SHOWS ON HOME COMPUTER FIRST PART OF SHIFT. ZENG PATENT AND DRAINING TO GRAVITY. PIV REMAINS INTACT. ON 2L O2 NC USING HOME BIPAP AT NIGHT. PO ATIVAN 0.5 MG GIVEN FOR ANXIETY/INSOMNIA. DENIES CHEST PAIN AND N/V. SOB W/EXERTION. VSS/AFEBRILE. CALL LIGHT IN REACH. BED IN LOWEST POSITION. WILL CONTINUE TO MONITOR UNTIL DAY SHIFT NURSE ASSUMES CARE.
--- NOTE | 2021-02-26 12:37 | NUR ---
PT AWAKE AT START OF SHIFT, SITTING UPRIGHT IN BED. PT IS A&O, ON 2L O2 VIA N/C. DR ARNETT CALLED TO REQUEST P/T EVAL FOR D/C. VANESA NOTIFIED; EVAL COMPLETED. PT AT BASELINE AND TO RETURN TO [place]. D/C ORDERS PLACED. PT REQUESTED TO BE CLEANED UP AND ASSISTED WITH SHAVE; DONE BY INSERT OPERATOR PER REQUEST. ARRANGEMENTS TO BE MADE FOR TRANSPORTATION BACK TO [place]. CALL LT IN REACH.
== END 2021-02-26 15:28 | disposition home or self-care (01) | DRG 189 ==
LOC: ER 03:48 → ERHOLD 03:49 → MEDS 03:49
PROVIDERS: Family Medicine; Internal Medicine; Student in an Organized Health Care Education/Training Program; ADMIT Internal Medicine
DX: J96.21 Acute and chronic respiratory failure with hypoxia (principal); E43 Unspecified severe protein-calorie malnutrition; R64 Cachexia; Z68.1 Body mass index [BMI] 19.9 or less, adult; J96.22 Acute and chronic respiratory failure with hypercapnia; J43.9 Emphysema, unspecified; Z23 Encounter for immunization; Z20.822 Contact with and (suspected) exposure to COVID-19; N40.0 Benign prostatic hyperplasia without lower urinary tract symptoms; F41.9 Anxiety disorder, unspecified; D72.828 Other elevated white blood cell count; K21.9 Gastro-esophageal reflux disease without esophagitis; G47.00 Insomnia, unspecified; Z85.828 Personal history of other malignant neoplasm of skin; Z79.899 Other long term (current) drug therapy; Z88.8 Allergy status to other drugs, medicaments and biological substances; Z98.49 Cataract extraction status, unspecified eye; K59.09 Other constipation; F17.201 Nicotine dependence, unspecified, in remission
CPT/HCPCS: 0241U; 36415; 71045; 71046; 80048; 80053; 81003; 83735; 84145; 84484; 85025; 86140; 93005; 93010; 94640; 94644; 94645; 94664; 94760; 94762; 96372; 96374; 96375; 97110; 97161; 97530; 99285-25; A9270; G0378; J1100; J1650; J2920; J2930; J3010; J7030

== ENCOUNTER 2021-05-20 11:24 | Emergency (ER) | payer OTHER ==
[~2021-05-20] VITALS: Ht 167.6 cm; Wt 51.3 kg
[2021-05-20 11:47] LABS: BASOPHILS PERCENT AUTO 1 % (0-2); EOSINOPHILS ABSOLUTE AUTO 0.52 K/mm3 (0.00-0.68); EOSINOPHILS PERCENT AUTO 5 % (0-6); Hemoglobin 12.4 g/dL (13.5-17.5); IMMATURE GRAN ABSOLUTE AUTO 0.05 K/mm3 (0.00-0.10); IMMATURE GRAN PERCENT AUTO 0 % (0-1); LYMPHOCYTES ABSOLUTE AUTO 1.64 K/mm3 (0.84-5.20); LYMPHOCYTES PERCENT AUTO 14 % (21-46); MONOCYTES ABSOLUTE AUTO 1.33 K/mm3 (0.16-1.47); MONOCYTES PERCENT AUTO 11 % (4-13); Mean Corpuscular HGB 30.7 pg (26.0-34.0); Mean Corpuscular HGB Conc 34.4 g/dL (31.5-36.5); Mean Corpuscular Volume 89 fL (80-100); Mean Platelet Volume 8.7 fL (9.1-12.4); NEUTROPHILS ABSOLUTE AUTO 7.99 K/mm3 (1.96-9.15); NEUTROPHILS PERCENT AUTO 69 % (41-73); Platelet Count 436 K/mm3 (150-400); RDW Coefficient Variation 14.1 % (11.7-14.2); RDW Standard Deviation 45.9 fL (35.1-46.3); Red Blood Cell Count 4.04 M/mm3 (4.30-5.90); White Blood Cell Count 11.63 K/mm3 (4.00-11.30)
[2021-05-20 12:18] LABS: Alanine Aminotransfer (ALT/SGP 23 U/L (12-78); Albumin, Blood 3.2 g/dL (3.4-5.0); Albumin/Globulin Ratio 0.9 (0.8-1.8); Alk Phos 60 U/L (50-136); Anion Gap 5 mmol/L (6-16); Aspartate Aminotrans (AST/SGOT 15 U/L (12-37); Bilirubin, Total 0.3 mg/dL (0.1-1.0); Blood Urea Nitrogen 16 mg/dL (8-24); Bun/Creatinine Ratio 17.4 (12.0-20.0); CO2, Blood 29 mmol/L (21-32); Calcium, Blood 9.2 mg/dL (8.5-10.1); Chloride, Blood 103 mmol/L (98-108); Creatinine, Blood 0.92 mg/dL (0.60-1.20); Globulin, Blood 3.4 g/dL (2.2-4.0); Glomerular Filtration Rate >60 (60-); Glucose, Blood 101 mg/dL (70-99); Potassium, Blood 4.3 mmol/L (3.5-5.5); Sodium, Blood 137 mmol/L (136-145); Total Protein, Blood 6.6 g/dL (6.4-8.2); Troponin I <0.015 ng/mL (0.000-0.040)
== END 2021-05-20 13:52 | disposition home or self-care (01) ==
LOC: ER 11:24
PROVIDERS: Emergency Medicine
DX: R07.89 Other chest pain (principal); K21.9 Gastro-esophageal reflux disease without esophagitis; J44.9 Chronic obstructive pulmonary disease, unspecified; I10 Essential (primary) hypertension; Z79.899 Other long term (current) drug therapy
CPT/HCPCS: 71045; 80053; 84484; 85025; 93005; 93010; 96374; 96375; 99285-25; J2270; J2405

== ENCOUNTER 2021-06-11 03:09 | Emergency (ER) | payer OTHER ==
[~2021-06-11] VITALS: Ht 175.3 cm; Wt 49.4 kg
[2021-06-11 03:34] LABS: BASOPHILS ABSOLUTE AUTO 0.05 K/mm3 (0.00-0.23); BASOPHILS PERCENT AUTO 0 % (0-2); EOSINOPHILS ABSOLUTE AUTO 0.47 K/mm3 (0.00-0.68); EOSINOPHILS PERCENT AUTO 2 % (0-6); Hematocrit 40.8 % (37.0-53.0); Hemoglobin 13.6 g/dL (13.5-17.5); IMMATURE GRAN ABSOLUTE AUTO 0.09 K/mm3 (0.00-0.10); IMMATURE GRAN PERCENT AUTO 1 % (0-1); LYMPHOCYTES ABSOLUTE AUTO 0.47 K/mm3 (0.84-5.20); LYMPHOCYTES PERCENT AUTO 2 % (21-46); MONOCYTES ABSOLUTE AUTO 1.26 K/mm3 (0.16-1.47); MONOCYTES PERCENT AUTO 7 % (4-13); Mean Corpuscular HGB 30.6 pg (26.0-34.0); Mean Corpuscular HGB Conc 33.3 g/dL (31.5-36.5); Mean Corpuscular Volume 92 fL (80-100); Mean Platelet Volume 8.2 fL (9.1-12.4); NEUTROPHILS ABSOLUTE AUTO 17.09 K/mm3 (1.96-9.15); NEUTROPHILS PERCENT AUTO 88 % (41-73); Platelet Count 642 K/mm3 (150-400); RDW Coefficient Variation 13.3 % (11.7-14.2); Red Blood Cell Count 4.45 M/mm3 (4.30-5.90); White Blood Cell Count 19.43 K/mm3 (4.00-11.30)
[2021-06-11 03:48] LABS: Anion Gap 4 mmol/L (6-16); Blood Urea Nitrogen 19 mg/dL (8-24); Bun/Creatinine Ratio 22.3 (12.0-20.0); CO2, Blood 31 mmol/L (21-32); Calcium, Blood 9.3 mg/dL (8.5-10.1); Chloride, Blood 103 mmol/L (98-108); Creatinine, Blood 0.85 mg/dL (0.60-1.20); Glomerular Filtration Rate >60 (60-); Glucose, Blood 112 mg/dL (70-99); Potassium, Blood 4.5 mmol/L (3.5-5.5); Sodium, Blood 138 mmol/L (136-145)
[2021-06-11 04:28] LABS: Influenza A, PCR NEGATIVE (NEGATIVE); Influenza B, PCR NEGATIVE (NEGATIVE); Resp Syncytial Virus, PCR NEGATIVE (NEGATIVE); SARS-Cov-2 (COVID-19) PCR, MMC NEGATIVE (NEGATIVE)
[2021-06-11 05:27] LABS: Base Excess Venous 5.3 mmol/L; Bicarbonate Venous 27.6 mmol/L (24.0-30.0); PCO2 Venous 60.2 mmHg (38-42); PO2 Venous 55.2 mmHg (38-42); pH Blood Venous 7.33 (7.34-7.37)
[2021-06-11 05:47] LABS: Source, Urine Clean Catch
[2021-06-11] MEDS ORDERED: ONDA4ODT MM (06:06)
[2021-06-11 06:44] LABS: Appearance, Urine Clear (Clear); Bilirubin, Urine Neg (Neg); Blood, Urine Neg (Neg); Color, Urine Yellow (P-Yellow); Glucose Qualitative, Urine Neg (Neg); Ketones, Urine Neg (Neg); Leukocyte Esterase, Urine Neg (Neg); Nitrite, Urine Neg (Neg); Protein, Urine Neg (Neg); Urobilinogen, Urine NORM (Normal)
== END 2021-06-11 08:22 | disposition home or self-care (01) ==
LOC: ER 03:09
PROVIDERS: Student in an Organized Health Care Education/Training Program
DX: R11.2 Nausea with vomiting, unspecified (principal); R19.7 Diarrhea, unspecified; J44.9 Chronic obstructive pulmonary disease, unspecified; E86.0 Dehydration; Z88.8 Allergy status to other drugs, medicaments and biological substances; Z79.899 Other long term (current) drug therapy; Z87.891 Personal history of nicotine dependence
CPT/HCPCS: 0241U; 36415; 71045; 80048; 81003; 82803; 83690; 84484; 85025; 93005; 93010; 94640; 96374; 96375; 99284-25; A9270; J2270; J2405; J7120

== ENCOUNTER 2021-06-11 12:10 | Inpatient (IN) | payer OTHER ==
[~2021-06-11] VITALS: Ht 175.3 cm; Wt 50.2 kg
[2021-06-11 13:25] LABS: BASOPHILS ABSOLUTE AUTO 0.04 K/mm3 (0.00-0.23); BASOPHILS PERCENT AUTO 0 % (0-2); EOSINOPHILS ABSOLUTE AUTO 0.64 K/mm3 (0.00-0.68); EOSINOPHILS PERCENT AUTO 5 % (0-6); Hematocrit 39.6 % (37.0-53.0); Hemoglobin 13.2 g/dL (13.5-17.5); IMMATURE GRAN ABSOLUTE AUTO 0.06 K/mm3 (0.00-0.10); IMMATURE GRAN PERCENT AUTO 0 % (0-1); LYMPHOCYTES PERCENT AUTO 7 % (21-46); MONOCYTES ABSOLUTE AUTO 0.81 K/mm3 (0.16-1.47); MONOCYTES PERCENT AUTO 6 % (4-13); Mean Corpuscular HGB 30.6 pg (26.0-34.0); Mean Corpuscular HGB Conc 33.3 g/dL (31.5-36.5); Mean Corpuscular Volume 92 fL (80-100); Mean Platelet Volume 8.3 fL (9.1-12.4); NEUTROPHILS ABSOLUTE AUTO 11.73 K/mm3 (1.96-9.15); NEUTROPHILS PERCENT AUTO 82 % (41-73); Platelet Count 608 K/mm3 (150-400); RDW Coefficient Variation 13.3 % (11.7-14.2); RDW Standard Deviation 45.4 fL (35.1-46.3); Red Blood Cell Count 4.32 M/mm3 (4.30-5.90); White Blood Cell Count 14.28 K/mm3 (4.00-11.30)
[2021-06-11 13:49] LABS: Alanine Aminotransfer (ALT/SGP 22 U/L (12-78); Albumin/Globulin Ratio 0.8 (0.8-1.8); Alk Phos 65 U/L (50-136); Anion Gap 3 mmol/L (6-16); Aspartate Aminotrans (AST/SGOT 8 U/L (12-37); Bilirubin, Total 0.4 mg/dL (0.1-1.0); Blood Urea Nitrogen 14 mg/dL (8-24); CO2, Blood 31 mmol/L (21-32); Calcium, Blood 9.2 mg/dL (8.5-10.1); Chloride, Blood 103 mmol/L (98-108); Creatinine, Blood 0.88 mg/dL (0.60-1.20); Globulin, Blood 3.7 g/dL (2.2-4.0); Glomerular Filtration Rate >60 (60-); Glucose, Blood 102 mg/dL (70-99); Potassium, Blood 4.7 mmol/L (3.5-5.5); Sodium, Blood 137 mmol/L (136-145); Total Protein, Blood 6.7 g/dL (6.4-8.2)
[2021-06-11 17:23] LABS: International Normalized Ratio 1.09; Prothrombin Time Results 11.4 Sec (9.7-11.5)
--- NOTE | 2021-06-12 04:06 | NUR ---
SHIFT SUMMARY Received patient AAOX3, Chornically ill appearing. He is on 3 L O2 via N/C during the day and on CPAP at night. He came in for worsening SOB with Pneumonia. Patient is self cath's stated for enlarge prostate. Per patient request, He does not want anyone in his room between midnight and 5 AM. He is particular on how he wants things to be done. We will continue to monitor for acute changes.
[2021-06-12 09:12] LABS: BASOPHILS ABSOLUTE AUTO 0.03 K/mm3 (0.00-0.23); BASOPHILS PERCENT AUTO 0 % (0-2); EOSINOPHILS ABSOLUTE AUTO 0.69 K/mm3 (0.00-0.68); EOSINOPHILS PERCENT AUTO 9 % (0-6); Hematocrit 36.5 % (37.0-53.0); Hemoglobin 11.9 g/dL (13.5-17.5); IMMATURE GRAN ABSOLUTE AUTO 0.04 K/mm3 (0.00-0.10); IMMATURE GRAN PERCENT AUTO 1 % (0-1); LYMPHOCYTES ABSOLUTE AUTO 1.74 K/mm3 (0.84-5.20); LYMPHOCYTES PERCENT AUTO 21 % (21-46); MONOCYTES PERCENT AUTO 6 % (4-13); Mean Corpuscular HGB 30.6 pg (26.0-34.0); Mean Corpuscular HGB Conc 32.6 g/dL (31.5-36.5); Mean Corpuscular Volume 94 fL (80-100); Mean Platelet Volume 8.2 fL (9.1-12.4); NEUTROPHILS ABSOLUTE AUTO 5.14 K/mm3 (1.96-9.15); NEUTROPHILS PERCENT AUTO 63 % (41-73); Platelet Count 494 K/mm3 (150-400); RDW Coefficient Variation 13.5 % (11.7-14.2); RDW Standard Deviation 46.5 fL (35.1-46.3); Red Blood Cell Count 3.89 M/mm3 (4.30-5.90); White Blood Cell Count 8.14 K/mm3 (4.00-11.30)
[2021-06-12 09:31] LABS: Anion Gap 2 mmol/L (6-16); Blood Urea Nitrogen 14 mg/dL (8-24); Bun/Creatinine Ratio 16.7 (12.0-20.0); CO2, Blood 33 mmol/L (21-32); Calcium, Blood 8.9 mg/dL (8.5-10.1); Chloride, Blood 103 mmol/L (98-108); Creatinine, Blood 0.84 mg/dL (0.60-1.20); Glomerular Filtration Rate >60 (60-); Glucose, Blood 109 mg/dL (70-99); Potassium, Blood 4.2 mmol/L (3.5-5.5); Sodium, Blood 138 mmol/L (136-145)
[2021-06-12 10:23] LABS: Source, Urine Straight Cath
[2021-06-12 10:38] LABS: Bilirubin, Urine Neg (Neg); Blood, Urine Neg (Neg); Glucose Qualitative, Urine Neg (Neg); Ketones, Urine Neg (Neg); Leukocyte Esterase, Urine Neg (Neg); Nitrite, Urine Neg (Neg); Protein, Urine Neg (Neg); Urobilinogen, Urine NORM (Normal)
[2021-06-12 10:40] LABS: Appearance, Urine Clear (Clear); Color, Urine Yellow (P-Yellow)
--- NOTE | 2021-06-13 04:20 | NUR ---
SHIFT SUMMARY PATIENT HAD NO ACUTE CHANGES OBSERVED. AXOX 3 AND COOPERATIVE WITH CARE. ON HIS COMPUTER UNTIL HE WENT TO SLEEP. ONE ASSIST TO BSC ON 1L O2 NC. SOB W/EXERTION. PIV REMAINS INTACT. IV ABX INFUSED. USES BIPAP STATING 97% ON CONTINUOUS PULSE OXIMETRY. SELF CATH WITH HX BPH. VSS/AFEBRILE. DENIES PAIN AND N/V. REPORTS DO NOT DISTURB FROM MIDNIGHT TO 05:00. REFUSED PRN MELATONIN. CALL LIGHT IN REACH. BED IN LOWEST POSITION. WILL CONTINUE TO MONITOR UNTIL DAY SHIFT NURSE ASSUMES CARE.
[2021-06-13 09:04] LABS: C DIFFICILE DNA NEGATIVE (Negative)
[2021-06-13 09:25] LABS: BASOPHILS ABSOLUTE AUTO 0.05 K/mm3 (0.00-0.23); BASOPHILS PERCENT AUTO 1 % (0-2); EOSINOPHILS ABSOLUTE AUTO 0.93 K/mm3 (0.00-0.68); EOSINOPHILS PERCENT AUTO 9 % (0-6); Hematocrit 35.7 % (37.0-53.0); Hemoglobin 11.6 g/dL (13.5-17.5); IMMATURE GRAN ABSOLUTE AUTO 0.04 K/mm3 (0.00-0.10); IMMATURE GRAN PERCENT AUTO 0 % (0-1); LYMPHOCYTES ABSOLUTE AUTO 2.05 K/mm3 (0.84-5.20); LYMPHOCYTES PERCENT AUTO 19 % (21-46); MONOCYTES ABSOLUTE AUTO 1.07 K/mm3 (0.16-1.47); MONOCYTES PERCENT AUTO 10 % (4-13); Mean Corpuscular HGB 30.2 pg (26.0-34.0); Mean Corpuscular HGB Conc 32.5 g/dL (31.5-36.5); Mean Corpuscular Volume 93 fL (80-100); Mean Platelet Volume 8.2 fL (9.1-12.4); NEUTROPHILS ABSOLUTE AUTO 6.71 K/mm3 (1.96-9.15); NEUTROPHILS PERCENT AUTO 62 % (41-73); Platelet Count 462 K/mm3 (150-400); RDW Coefficient Variation 13.5 % (11.7-14.2); RDW Standard Deviation 46.3 fL (35.1-46.3); Red Blood Cell Count 3.84 M/mm3 (4.30-5.90); White Blood Cell Count 10.85 K/mm3 (4.00-11.30)
[2021-06-13 09:39] LABS: Anion Gap 2 mmol/L (6-16); Blood Urea Nitrogen 11 mg/dL (8-24); Bun/Creatinine Ratio 13.9 (12.0-20.0); CO2, Blood 31 mmol/L (21-32); Calcium, Blood 8.7 mg/dL (8.5-10.1); Chloride, Blood 105 mmol/L (98-108); Creatinine, Blood 0.79 mg/dL (0.60-1.20); Glomerular Filtration Rate >60 (60-); Glucose, Blood 99 mg/dL (70-99); Potassium, Blood 3.9 mmol/L (3.5-5.5); Sodium, Blood 138 mmol/L (136-145)
--- NOTE | 2021-06-13 16:24 | NUR ---
No acute changes. Pt alert and oriented X4, pleasent, cooperative, and able to make their needs known. Oxygen currently at 1.5L via NC. SB assist and using FWW. Taking pills whole, no complications. PIV access at [facility], flusing well, receiving IV Abx. Pt eating meals around 60-100%, able to feed self. Pt is continent of bowel and bladder, self straight-caths d/t enlarged prostate. SOB with exertion. Skin intact, with brusing. Pt is participating in PT. Pt currently denies pain, no s/s of pain noted. Pt uses BiPAP at NOC and as needed during the day. Daily education and encouragement given. CAll-light within reach, bed in lowest position.
--- NOTE | 2021-06-14 06:09 | NUR ---
SHIFT SUMMARY No acute events overnight. Patient AAOX4, resting confortably. He is using his BPAP at this time. Saturated from 97 to 100%. No complaint for pain voices. Only requested his Ativan which he received. We will continue to monitor patient until report given to the oncoming nurse.
[2021-06-14] MEDS ORDERED: AMOCLA875 PO (10:23)
[2021-06-14] MEDS ORDERED: VISBIOME 112.51 EACH PO (10:23)
[2021-06-14] MEDS ORDERED: IPRAT-ALBUT 0.5-3 ML INH (14:58)
[2021-06-14] MEDS ORDERED: GUAI600T33 PO (14:58)
[2021-06-15] MEDS ORDERED: FURO20 PO (12:06)
[2021-06-15] MEDS ORDERED: POTCHL20ER PO (12:07)
[2021-06-15] MEDS ORDERED: NYSTRIT TOP (12:07)
--- NOTE | 2021-06-15 13:13 | NUR ---
Pt was offer scheduled senna this AM, and he refused d/t to D/C in this AM. Later the patient complained of constipation, senna was given per his request at 1115am, when given he stated that "that will do nothing for me"; RN offer prune juice too, which he drank. Pt refused his breakfast this morning, d/t to "bloating"; around 1030 he stated that he did not receive his breakfast, RN gave him yogurt, crackers, and string cheese from pantry per his request. One time dose of mirlax was requested from , RN is waiting for pharmacy to acknowledge request and will give dose as soon as it is available. Pt is expected to D/C later this afternoon to [place]. Pt was aggitated in the early AM, and became upset at the SIGNING AGENT for trying to measure his vital signs. RN held the measurement d/t pervious VS being normal and RN had been with Pt during that time and had spent at least a hour with Pt in their room to deescalate the situation. Pt was calmed down and the patient advocate was requested for the patient.
--- NOTE | 2021-06-15 15:20 | NUR ---
Spiritual care visit attempted. Upon receiving a referral for spiritual care, I visit pt. I walk into pt's and he shakes his head and mouths, "No." I will continue to remain available to patient and family.
== END 2021-06-15 15:50 | disposition home health service (06) | DRG 871 ==
LOC: ER 12:10 → MEDS 16:29 → ENPENDDIS 06-14 12:25 → MEDS 06-15 15:50
PROVIDERS: Family Medicine; Physician Assistant; ADMIT Internal Medicine
DX: A41.9 Sepsis, unspecified organism (principal); J69.0 Pneumonitis due to inhalation of food and vomit; J18.9 Pneumonia, unspecified organism; J96.21 Acute and chronic respiratory failure with hypoxia; J96.22 Acute and chronic respiratory failure with hypercapnia; J44.0 Chronic obstructive pulmonary disease with (acute) lower respiratory infection; Z20.822 Contact with and (suspected) exposure to COVID-19; Z66 Do not resuscitate; R65.20 Severe sepsis without septic shock; R11.2 Nausea with vomiting, unspecified; R19.7 Diarrhea, unspecified; F41.9 Anxiety disorder, unspecified; K21.9 Gastro-esophageal reflux disease without esophagitis; I10 Essential (primary) hypertension; N40.0 Benign prostatic hyperplasia without lower urinary tract symptoms; G47.00 Insomnia, unspecified; Z88.8 Allergy status to other drugs, medicaments and biological substances; Z79.899 Other long term (current) drug therapy; Z85.828 Personal history of other malignant neoplasm of skin; Z87.891 Personal history of nicotine dependence; Z99.81 Dependence on supplemental oxygen
CPT/HCPCS: 36415; 80048; 80053; 81003; 83605; 85025; 85610; 85730; 87015; 87040; 87045; 87046; 87205; 87493; 87899; 92610; 94640; 94664; 94760; 94762; 97110; 97116; 97161; 97165; 97530; 97535; 99284; A9270; J0295; J0456; J1650; J7050; J7120